=== PATIENT | female | born 1960 | race Caucasian/White ===

== ENCOUNTER 2016-11-14 18:05 | Inpatient (IN) | payer MEDICARE, OTHER ==
[~2016-11-14] VITALS: Ht 175.3 cm; Wt 77.1 kg
[~2016-11-14 18:05] MED LIST: ATOR20TA15 PO; CYMB60CA PO; GABA600T PO; GLIP1TAB49 PO; GLIP1TAB51 PO; METO25TA6 PO; PROT40TA PO; ULTR50TA5 PO
[2016-11-14 18:08] VITALS: BP 173/76; PULSE 68; RESP 18; TEMP 98.2; O2SAT 98
[2016-11-14] MEDS ORDERED: GLIP10TA67 PO (18:22)
[2016-11-14] MEDS ORDERED: VITACAP7 PO (18:22)
[2016-11-14] MEDS ORDERED: VENTAER INH (18:22)
[2016-11-14] MEDS ORDERED: ASPI1TAB69 PO (18:22)
[2016-11-14] MEDS ORDERED: BUSP1TAB PO (18:22)
[2016-11-14] MEDS ORDERED: BACL10TA PO (18:22)
[2016-11-14] MEDS ORDERED: LACTCAP8 PO (18:22)
[2016-11-14] MEDS ORDERED: SODIUM CHLOR 0.9% 1000 ML INJ 1,000 ML IV ONE ×2 (18:35→19:05)
--- NOTE | 2016-11-14 18:39 | PD ---
HPI Chief Complaint: GI Complaint Time Seen by Provider: 18:30 Travel History International Travel<30 days: No Contact w/Intl Traveler<30days: No Traveled to known affect area: No History of Present Illness HPI 56-year-old female with history of diabetes, bipolar disorder, hypertension, here for evaluation of nausea, vomiting, diarrhea, abdominal pain. Symptoms started today. According to the patient's granddaughter, the patient had approximately 20 episodes of vomiting today which consist of greenish emesis. The patient also reports having some loose bowel movements today area emesis and bowel movements have been nonbloody. She is having right upper quadrant abdominal and lower abdominal pain which is sharp, constant, 9 out of 10, worse with movement and palpation. History of cholecystectomy, appendectomy, and hysterectomy. No urinary symptoms. EMS reported a temp of 99.8F. BGL of 253. PFSH Past Medical History Hx Anticoagulant Therapy: Yes (2 BABY ASA DAILY) Bipolar Disorder: Yes Cancer: No Cardiac Catheterization: No Cardiovascular Problems: Yes (MA, HTN, CHOL) High Cholesterol: Yes Congestive Heart Failure: No Cerebrovascular Accident: Yes (TIA) Coronary Artery Disease: Yes Diabetes: Yes Patient Takes Glucophage: No Diminished Hearing: Yes Headaches: No Hypertension: Yes Musculoskeletal: Yes (chronic back pain) Neurologic: Yes Psychiatric: Yes (PT REPORT "WHITE SPOTS ON MRI") Immunizations Current: Yes Myocardial Infarction: Yes Influenza Vaccination: Yes Menopausal: Yes Ovarian Cysts: Yes Past Surgical History Abdominal Surgery: Yes (LAPROSCOPY FOR ADHESIONS) Appendectomy: Yes Cholecystectomy: Yes Coronary Artery Bypass Graft: No Gynecologic Surgery: Yes (HYSTERECTOMY partial) Hysterectomy: Yes Tonsillectomy: Yes Social History Alcohol Use: Yes (RARELY) Tobacco Use: Yes (1 PPD) Substance Use: Yes Allergies-Medications (Allergen,Severity, Reaction): Coded Allergies: Bee Sting (Verified Adverse Reaction, Severe, Anaphylaxis, 11/14/16) Codeine (Verified Adverse Reaction, Severe, ITCH, 11/14/16) Reported Meds & Prescriptions Reported Meds & Active Scripts Active Ultram (Tramadol HCl) 50 Mg Tab 100 Mg PO Q12HR PRN Metoprolol Succinate ER 24 HR (Metoprolol Succinate) 25 Mg Tab 25 Mg PO DAILY Protonix (Pantoprazole Sodium) 40 Mg Tab 40 Mg PO DAILY Gabapentin 600 Mg Tab 1,200 Mg PO BID Atorvastatin (Atorvastatin Calcium) 20 Mg Tab 20 Mg PO HS Reported B Complex (B-Complex Vitamins) 1 Cap 1 Cap PO DAILY Probiotic (Lactobacillus Acidophilus) 1 Cap Cap 1 Cap PO TIDAC Ventolin Hfa 18 GM Inh (Albuterol Sulfate) 90 Mcg/Act Aer 2 Puff INH Q4-6H PRN Aspirin 81 Mg Tabdr 81 Mg PO DAILY Baclofen 10 Mg Tab 10 Mg PO BID PRN Buspirone (Buspirone HCl) 7.5 Mg Tab 7.5 Mg PO BID Glipizide XL (Glipizide) 10 Mg Glynn 10 Mg PO DAILY Take with breakfast or first main meal of the day Review of Systems Except as stated in HPI: all other systems reviewed are Neg Physical Exam Narrative GENERAL: Well-developed, well-nourished, no acute distress. SKIN: Warm and dry. HEAD: Atraumatic. Normocephalic. EYES: Pupils equal and round. No scleral icterus. No injection or drainage. ENT: Mucous membranes pink and dry. NECK: Trachea midline. No JVD. No nuchal rigidity. CARDIOVASCULAR: Regular rate and rhythm. RESPIRATORY: No accessory muscle use. Clear to auscultation. Breath sounds equal bilaterally. GASTROINTESTINAL: Abdomen soft, nondistended. Moderate diffuse tenderness without peritoneal signs. Normal bowel sounds. MUSCULOSKELETAL: No obvious deformities. No clubbing. No cyanosis. No edema. NEUROLOGICAL: Awake and alert. No obvious cranial nerve deficits. Motor grossly within normal limits. Normal speech. PSYCHIATRIC: Appropriate mood and affect; insight and judgment normal. Data Data Last Documented VS Vital Signs Date Time Temp Pulse Resp B/P Pulse Ox O2 Delivery O2 Flow Rate FiO2 11/14/16 18:08 98.2 68 18 173/76 98 Orders Electrocardiogram (11/14/16 18:35) Complete Blood Count With Diff (11/14/16 18:35) Comprehensive Metabolic Panel (11/14/16 18:35) Beta Hydroxybutyrate (Acetone) (11/14/16 18:35) Urinalysis - C+S If Indicated (11/14/16 18:35) Chest, Single Ap (11/14/16 18:35) Blood Gas Venous (Vbg) (11/14/16 18:35) Ecg Monitoring (11/14/16 18:35) Iv Access Insert/Monitor (11/14/16 18:35) Oximetry (11/14/16 18:35) NPO (11/14/16 18:35) Sodium Chlor 0.9% 1000 Ml Inj (Ns 1000 M (11/14/16 18:35) Sodium Chlor 0.9% 1000 Ml Inj (Ns 1000 M (11/14/16 19:05) Sodium Chloride 0.9% Flush (Ns Flush) (11/14/16 18:45) Ckmb (Isoenzyme) Profile (11/14/16 18:35) Troponin I (11/14/16 18:35) Lipase (11/14/16 18:35) Metoclopramide Inj (Reglan Inj) (11/14/16 18:45) Morphine Inj (Morphine Inj) (11/14/16 18:45) Influenzae A/B Antigen (11/14/16 18:35) Ct Abd/Pel W Iv Contrast(Rout) (11/14/16 18:35) Labs Laboratory Tests Test 11/14/16 11/14/16 18:30 18:40 White Blood Count 14.8 TH/MM3 Red Blood Count 5.34 MIL/MM3 Hemoglobin 15.8 GM/DL Hematocrit 46.3 % Mean Corpuscular Volume 86.7 FL Mean Corpuscular Hemoglobin 29.6 PG Mean Corpuscular Hemoglobin 34.2 % Concent Red Cell Distribution Width 12.7 % Platelet Count 456 TH/MM3 Mean Platelet Volume 7.6 FL Neutrophils (%) (Auto) 91.6 % Lymphocytes (%) (Auto) 7.1 % Monocytes (%) (Auto) 0.6 % Eosinophils (%) (Auto) 0.0 % Basophils (%) (Auto) 0.7 % Neutrophils # (Auto) 13.5 TH/MM3 Lymphocytes # (Auto) 1.1 TH/MM3 Monocytes # (Auto) 0.1 TH/MM3 Eosinophils # (Auto) 0.0 TH/MM3 Basophils # (Auto) 0.1 TH/MM3 CBC Comment DIFF FINAL Differential Comment Blood Gas Puncture Site IV Blood Gas Patient Temperature 98.6 Venous Blood pH 7.53 Venous Blood Partial Pressure 27 mmHg CO2 Venous Blood Partial Pressure 26 mmHg O2 Venous Blood HCO3 23 mmol/L Venous Blood Oxygen Saturation 52 % Venous Blood Oxygen Content 11.4 Vol % Venous Blood Base Excess 0.4 mmol/L Oxygen Delivery Device ROOM AIR MDM Medical Decision Making Medical Screen Exam Complete: Yes Emergency Medical Condition: Yes Medical Record Reviewed: Yes Interpretation(s) EKG: Sinus, rate 76, normal axis, normal intervals, nonspecific ST junctional depressions Differential Diagnosis Gastroenteritis, dehydration, hyperglycemia, DKA, influenza, bowel obstruction, intra-abdominal infectious process. Narrative Course At approximately 7:00 PM at the end of my shift the patient was signed out to Dr. France who will follow up with labs, imaging studies, and will disposition the patient. Romero Berry MD Nov 14, 2016 18:39
[2016-11-14] MEDS ORDERED: METOCLOPRAMIDE HCL 10 MG/2 ML VIAL IV PUSH ONE (18:45)
[2016-11-14] MEDS ORDERED: SODIUM CHLORIDE 0.9% FLUSH 5 ML FLUSH IVF PRN ×2 (18:45→20:45)
[2016-11-14] MEDS ORDERED: MORPHINE SULFATE 4 MG/ML INJ IV PUSH ONE (18:45)
[2016-11-14 18:48] LABS: BLOOD GAS VENOUS BASE EXCESS 0.4 mmol/L (-2-2); BLOOD GAS VENOUS HCO3 23 mmol/L (22-26); BLOOD GAS VENOUS O2 CONTENT 11.4 Vol % (9.0-17.0); BLOOD GAS VENOUS O2 HGB SAT 52 % (70-76); BLOOD GAS VENOUS PCO2 27 mmHg (44-48); BLOOD GAS VENOUS PO2 26 mmHg (35-40); BLOOD GAS VENOUS pH 7.53 (7.360-7.400); TEMP CORR TO 98.6
[2016-11-14 18:49] LABS: CRITICAL VALUE YES; DRAW SITE IV; OXYGEN DEVICE ROOM AIR; STAT YES
[2016-11-14 18:53] LABS: AUTOMATED NEUTROPHIL # 13.5 TH/MM3 (1.8-7.7); BASOPHIL # 0.1 TH/MM3 (0-0.2); BASOPHIL % 0.7 % (0.0-2.0); HEMATOCRIT 46.3 % (35.0-46.0); HEMO FLAGS DIFF FINAL; LYMPH % 7.1 % (9.0-44.0); LYMPHOCYTE # 1.1 TH/MM3 (1.0-4.8); MEAN CELL VOLUME 86.7 FL (80.0-100.0); MEAN CORPUSCULAR HEMOGLOBIN 29.6 PG (27.0-34.0); MEAN CORPUSCULAR HGB CONC 34.2 % (32.0-36.0); MONO % 0.6 % (0.0-8.0); NEUT % 91.6 % (16.0-70.0); PLATELET COUNT 456 TH/MM3 (150-450); RED BLOOD COUNT 5.34 MIL/MM3 (4.00-5.30); RED CELL DISTRIBUTION WIDTH 12.7 % (11.6-17.2); WHITE BLOOD COUNT 14.8 TH/MM3 (4.0-11.0)
[2016-11-14 19:02] LABS: CHLORIDE 105 MEQ/L (98-107); POTASSIUM 3.7 MEQ/L (3.5-5.1); SODIUM (NA) 140 MEQ/L (136-145)
[2016-11-14 19:06] LABS: ANION GAP 12 MEQ/L (5-15); BICARBONATE 22.6 MEQ/L (21.0-32.0); BLOOD UREA NITROGEN 8 MG/DL (7-18)
[2016-11-14 19:08] LABS: ALT (GPT) 19 U/L (10-53); AST (GOT) 14 U/L (15-37)
[2016-11-14 19:09] LABS: GLOMERULAR FILTRATION RATE 61 ML/MIN (>89)
[2016-11-14 19:10] LABS: TOTAL BILIRUBIN ADULT 0.5 MG/DL (0.2-1.0)
[2016-11-14 19:11] LABS: ALKALINE PHOSPHATASE 93 U/L (45-117)
[2016-11-14 19:12] LABS: BLOOD, URINE TRACE (NEG); GLUCOSE,URINE 500 mg/dL (NEG); KETONE, URINE 80 OR GREATER mg/dL (NEG); NITRITE,URINE NEG (NEG)
[2016-11-14 19:17] LABS: BACTERIA, URINE OCC /hpf; COMMENT (UR) CULT NOT INDICATED; CULTURE IF INDICATED CULT NOT INDICATED; SQUAMOUS EPITHELIAL CELL URINE 0-5 /hpf (0-5); URINE COLOR YELLOW (YELLW/STRAW); WBC, URINE 0-2 /hpf (0-5)
[2016-11-14 19:18] LABS: CREATINE KINASE 59 U/L (26-192)
[2016-11-14 19:19] VITALS: BP 164/76; PULSE 72; RESP 16; O2SAT 99
[2016-11-14 19:20] LABS: BETA-HYDROXYBUTYRATE 1.12 MMOL/L (0.00-0.39)
--- NOTE | 2016-11-14 19:34 | PD ---
Physical Exam Date Seen by Provider: Nov 14, 2016 Time Seen by Provider: 19:33 Narrative GENERAL: Well-developed well-nourished female in no acute distress no respiratory distress SKIN: Warm and dry. HEAD: Normocephalic. EYES: No scleral icterus. No injection or drainage. NECK: Supple, trachea midline. No JVD or lymphadenopathy. CARDIOVASCULAR: Regular rate and rhythm without murmurs, gallops, or rubs. RESPIRATORY: Breath sounds equal bilaterally. No accessory muscle use. GASTROINTESTINAL: Abdomen soft, non-tender, nondistended. MUSCULOSKELETAL: No cyanosis, or edema. BACK: Nontender without obvious deformity. No CVA tenderness. Data Data Last Documented VS Vital Signs Date Time Temp Pulse Resp B/P Pulse Ox O2 Delivery O2 Flow Rate FiO2 11/14/16 20:17 87 16 176/83 99 Room Air 11/14/16 18:08 98.2 Orders Electrocardiogram (11/14/16 18:35) Complete Blood Count With Diff (11/14/16 18:35) Comprehensive Metabolic Panel (11/14/16 18:35) Beta Hydroxybutyrate (Acetone) (11/14/16 18:35) Urinalysis - C+S If Indicated (11/14/16 18:35) Chest, Single Ap (11/14/16 18:35) Blood Gas Venous (Vbg) (11/14/16 18:35) Ecg Monitoring (11/14/16 18:35) Iv Access Insert/Monitor (11/14/16 18:35) Oximetry (11/14/16 18:35) NPO (11/14/16 18:35) Sodium Chlor 0.9% 1000 Ml Inj (Ns 1000 M (11/14/16 18:35) Sodium Chlor 0.9% 1000 Ml Inj (Ns 1000 M (11/14/16 19:05) Sodium Chloride 0.9% Flush (Ns Flush) (11/14/16 18:45) Ckmb (Isoenzyme) Profile (11/14/16 18:35) Troponin I (11/14/16 18:35) Lipase (11/14/16 18:35) Metoclopramide Inj (Reglan Inj) (11/14/16 18:45) Morphine Inj (Morphine Inj) (11/14/16 18:45) Influenzae A/B Antigen (11/14/16 18:35) Ct Abd/Pel W Iv Contrast(Rout) (11/14/16 18:35) Iohexol 350 Inj (Omnipaque 350 Inj) (11/14/16 19:51) Ondansetron Inj (Zofran Inj) (11/14/16 20:15) Aspirin Chew (Aspirin Chew) (11/14/16 20:15) Nitroglycerin 2% Oint (Nitroglycerin 2% (11/14/16 20:15) Admit Order (Ed Use Only) (11/14/16 ) ^ Saline Lock (11/14/16 20:43) Resp Oxygen [place] C Titrat 1-4 L (11/14/16 ) ^ Notify Dr: Other (11/14/16 20:43) Sodium Chloride 0.9% Flush (Ns Flush) (11/14/16 21:00) Sodium Chloride 0.9% Flush (Ns Flush) (11/14/16 20:45) Labs Laboratory Tests Test 11/14/16 11/14/16 11/14/16 18:30 18:40 19:00 White Blood Count 14.8 TH/MM3 Red Blood Count 5.34 MIL/MM3 Hemoglobin 15.8 GM/DL Hematocrit 46.3 % Mean Corpuscular Volume 86.7 FL Mean Corpuscular Hemoglobin 29.6 PG Mean Corpuscular Hemoglobin 34.2 % Concent Red Cell Distribution Width 12.7 % Platelet Count 456 TH/MM3 Mean Platelet Volume 7.6 FL Neutrophils (%) (Auto) 91.6 % Lymphocytes (%) (Auto) 7.1 % Monocytes (%) (Auto) 0.6 % Eosinophils (%) (Auto) 0.0 % Basophils (%) (Auto) 0.7 % Neutrophils # (Auto) 13.5 TH/MM3 Lymphocytes # (Auto) 1.1 TH/MM3 Monocytes # (Auto) 0.1 TH/MM3 Eosinophils # (Auto) 0.0 TH/MM3 Basophils # (Auto) 0.1 TH/MM3 CBC Comment DIFF FINAL Differential Comment Sodium Level 140 MEQ/L Potassium Level 3.7 MEQ/L Chloride Level 105 MEQ/L Carbon Dioxide Level 22.6 MEQ/L Anion Gap 12 MEQ/L Blood Urea Nitrogen 8 MG/DL Creatinine 0.95 MG/DL Estimat Glomerular Filtration 61 ML/MIN Rate Random Glucose 245 MG/DL Calcium Level 9.1 MG/DL Total Bilirubin 0.5 MG/DL Aspartate Amino Transf 14 U/L (AST/SGOT) Alanine Aminotransferase 19 U/L (ALT/SGPT) Alkaline Phosphatase 93 U/L Total Creatine Kinase 59 U/L Troponin I 0.24 NG/ML Total Protein 8.1 GM/DL Albumin 4.1 GM/DL Lipase 62 U/L B-Hydroxybutyrate 1.12 MMOL/L Blood Gas Puncture Site IV Blood Gas Patient Temperature 98.6 Venous Blood pH 7.53 Venous Blood Partial Pressure 27 mmHg CO2 Venous Blood Partial Pressure 26 mmHg O2 Venous Blood HCO3 23 mmol/L Venous Blood Oxygen Saturation 52 % Venous Blood Oxygen Content 11.4 Vol % Venous Blood Base Excess 0.4 mmol/L Oxygen Delivery Device ROOM AIR Urine Color YELLOW Urine Turbidity CLEAR Urine pH 7.0 Urine Specific [place] 1.024 Urine Protein 100 mg/dL Urine Glucose (UA) 500 mg/dL Urine Ketones 80 OR GREATER mg/dL Urine Occult Blood TRACE Urine Nitrite NEG Urine Bilirubin NEG Urine Leukocyte Esterase NEG Urine RBC 10-14 /hpf Urine WBC 0-2 /hpf Urine Squamous Epithelial 0-5 /hpf Cells Urine Bacteria OCC /hpf Microscopic Urinalysis Comment CULT NOT INDICATED MDM Medical Record Reviewed: Yes Supervised Visit with KEANU: No Interpretation(s) Last Impressions Chest X-Ray 11/14/[id number] Signed Impressions: Service Date/Time: Monday, November 14, 2016 18:46 - CONCLUSION: No acute disease. No significant change has occurred. Mathew Fuller MD Abdomen/Pelvis CT 11/14/[id number] Signed Impressions: Service Date/Time: Monday, November 14, 2016 19:31 - CONCLUSION: Stable left adrenal gland nodules. No evidence of acute process. Mathew Fuller MD CBC & BMP Diagram 11/14/16 18:30 Vital Signs Date Time Temp Pulse Resp B/P Pulse Ox O2 Delivery O2 Flow Rate FiO2 11/14/16 20:17 87 16 176/83 99 Room Air 11/14/16 19:19 72 16 164/76 99 Room Air 11/14/16 18:08 98.2 68 18 173/76 98 Differential Diagnosis Please refer to Dr. Berry's dictation Narrative Course Accepted in transfer of care from Dr. Berry for follow-up of pending CT labs and patient disposition At 8:15 PM patient is return from CT receiving first liter of normal saline states her nausea has improved but not resolved no further diarrhea no abdominal pain patient denies any shortness of breath or chest pain states feels somewhat improved; patient identified to have elevated troponin EKG shows sinus arrhythmia rate of [address] elevation nonspecific mild ST depression inferolaterally. Patient has had previous myocardial infarction. Lab values remarkable for leukocytosis with left shift; normal bicarbonate and anion gap; respiratory alkalosis; elevated beta hydroxybutyric acid; and CT abdomen and pelvis reveals no acute intra-abdominal or pelvic abnormality. Patient presents with dehydration probable gastroenteritis post-exposure from family members with similar symptoms now with concern for elevated troponin I ( prior [place], no CP no SOB, no sweats, no referred pain or epigastric pain), elevated BHB with respiratory acidosis associated with gastroenteritis/ dehydration concern for early dka. Patient will need to be admitted for ongoing diabetic management, serial cardiac enzymes, and symptomatic management for gastroenteritis. Case discussed with admitting [facility] MD Dr Neal --will admit to [facility] intermediate care floor. Sepsis Criteria SIRS Criteria (2 or more): WBC > 45601, < 4000 or > 10% bands Physician Communication Physician Communication call placed to [facility] service for admission --- discussed with Dr Neal Diagnosis Primary Impression: Gastroenteritis Additional Impressions: Diabetes Elevated troponin I level Dehydration Leukocytosis Admitting Information Admitting Physician Requests: Admit Katie France MD Nov 14, 2016 19:34
--- NOTE | 2016-11-14 19:47 | RADHPO ---
EXAM DATE/TIME: 11/14/2016 18:46 [facility] COMPARISON: CHEST SINGLE AP, August 10, 2015, 13:12. INDICATIONS : Cough. MEDICAL HISTORY : Hypertension. Hypercholesterolemia. Myocardial infarction. TIA, CAD, Diabetes, Bipolar disorder SURGICAL HISTORY : Tonsillectomy. Appendectomy. Cholecystectomy. Hysterectomy ENCOUNTER: Initial ACUITY: 1 day PAIN SCORE: 6/10 LOCATION: Bilateral chest FINDINGS: A single view of the chest demonstrates the lungs to be symmetrically aerated without evidence of mas s, infiltrate or effusion. The cardiomediastinal contours are unremarkable. Osseous structures are intact.CONCLUSION: No acute disease. No significant change has occurred. Mathew Fuller MD on November 14, 2016 at 19:45 Board Certified Radiologist. This report was verified electronically.
[2016-11-14] MEDS ORDERED: IOHEXOL 350 MG/ML 10 ML VIAL (for RAD DIAG) IV ONE (19:51)
--- NOTE | 2016-11-14 20:11 | RADHPO ---
EXAM DATE/TIME: 11/14/2016 19:31 [facility] COMPARISON: CT ABDOMEN & PELVIS W CONTRAST, March 16, 2015, 11:21. INDICATIONS : Diffuse abdominal pain with nausea, vomiting, and diarrhea. IV CONTRAST: 96 cc Omnipaque 350 (iohexol) IV ORAL CONTRAST: No oral contrast ingested. RADIATION DOSE: 10.57 CTDIvol (mGy) MEDICAL HISTORY : Myocardial infarction. Hypertension. Diabetes. SURGICAL HISTORY : Cholecystectomy. Appendectomy.Hysterectomy. ENCOUNTER: Initial ACUITY: 1 day PAIN SCALE: 6/10 LOCATION: Bilateral Abdomen. TECHNIQUE: Volumetric scanning of the abdomen and pelvis was performed. Using automated exposure control and adjustment of the mA and/or kV according to patient size, radiation dose was kept as low as reasonably achievable to obtain optimal diagnostic quality images. FINDINGS: LOWER LUNGS: The visualized lower lungs are clear. LIVER: Homogeneous density without lesion. There is no dilation of the biliary tree. No calcifi ed gallstones. SPLEEN: Normal size without lesion. PANCREAS: Within normal limits. KIDNEYS: Normal in size and shape. There is no mass, stone or hydronephrosis. ADRENAL GLANDS: 3 small nodules are identified in the left adrenal gland the largest measuring 16 mm. These are stable compared to prior study of 03/16/2015. Radiograph is unremarkable. VASCULAR: There is no aortic aneurysm. BOWEL/MESENTERY: The stomach, small bowel, and colon demonstrate no acute abnormality. There is no free intraperitoneal air or fluid. ABDOMINAL WALL: Within normal limits. RETROPERITONEUM: There is no lymphadenopathy. BLADDER: No wall thickening or mass. REPRODUCTIVE: Within normal limits. INGUINAL: There is no lymphadenopathy or hernia. MUSCULOSKELETAL: Within normal limits for patient age. CONCLUSION: Stable left adrenal gland nodules. No evidence of acute process. Mathew Fuller MD on November 14, 2016 at 20:07 Board Certified Radiologist. This report was verified electronically.
[2016-11-14] MEDS ORDERED: ASPIRIN 81 MG CHEW TAB CHEW ONE (20:15)
[2016-11-14] MEDS ORDERED: ONDANSETRON HCL 4 MG/2 ML VIAL IV PUSH ONE (20:15)
[2016-11-14] MEDS ORDERED: NITROGLYCERIN 2% OINT 1 GM PACKET TOPICAL ONE (20:15)
[2016-11-14 20:17] VITALS: BP 176/83; PULSE 87; RESP 16; O2SAT 99
[2016-11-14] MEDS ORDERED: BISACODYL 10 MG SUPP PR PRN (20:45)
[2016-11-14] MEDS ORDERED: MORPHINE SULFATE 4 MG/ML INJ IV PRN (20:45)
[2016-11-14] MEDS ORDERED: DEXTROSE 50% IN WATER 50 ML VIAL(D50) IV PUSH PRN (20:45)
[2016-11-14] MEDS ORDERED: KETOROLAC TROMETHAMINE 30 MG/ML (IVP) VIAL IVP PRN (20:45)
[2016-11-14] MEDS ORDERED: SODIUM CHLORIDE 0.9% FLUSH 5 ML FLUSH FLUSH PRN (20:45)
[2016-11-14] MEDS ORDERED: GLUCAGON 1 MG/ML VIAL OTHER PRN (20:45)
[2016-11-14] MEDS ORDERED: SODIUM CHLORIDE 0.9% FLUSH 5 ML FLUSH IVF SCH (21:00)
[2016-11-14] MEDS ORDERED: PILL SPLITTER OTHER PRN (21:00)
[2016-11-14 21:12] VITALS: O2SAT 98
[2016-11-14] MEDS: busPIRone HCL 5 MG TAB PO SCH (21:27)
[2016-11-14] MEDS: ATORVASTATIN 20 MG TAB PO SCH (21:27)
[2016-11-14] MEDS: CIPROFLOXACIN 400 MG PREMIX 200 ML IV SCH (21:27)
[2016-11-14] MEDS: GABAPENTIN 300 MG CAP PO SCH (21:28)
[2016-11-14] MEDS: INSULIN ASPART SUPPLEMENTAL SCALE SQ SCH (21:28)
[2016-11-14] MEDS: SODIUM CHLOR 0.9% 1000 ML INJ 1,000 ML IV SCH (21:29)
[2016-11-14] MEDS: SODIUM CHLORIDE 0.9% FLUSH 5 ML FLUSH FLUSH SCH (21:36)
[2016-11-14] MEDS: PANTOPRAZOLE SODIUM 40 MG VIAL IV PUSH SCH (21:36)
[2016-11-14 21:50] VITALS: BP 171/71; PULSE 87; RESP 16
[2016-11-14] MEDS: metroNIDAZOLE 500 MG INJ 100 ML IV SCH (22:52)
[2016-11-15] VITALS (13 sets, daily range): BP systolic 99–158; BP diastolic 48–85; PULSE 66–99; RESP 14–17; TEMP 97.8–98.6; O2SAT 26–99
[2016-11-15 03:11] LABS: HEMATOCRIT 41.3 % (35.0-46.0); MEAN CORPUSCULAR HEMOGLOBIN 29.5 PG (27.0-34.0); MEAN CORPUSCULAR HGB CONC 33.6 % (32.0-36.0); PLATELET COUNT 375 TH/MM3 (150-450); RED BLOOD COUNT 4.69 MIL/MM3 (4.00-5.30); RED CELL DISTRIBUTION WIDTH 12.9 % (11.6-17.2); REVIEW FLAG FINAL; WHITE BLOOD COUNT 16.5 TH/MM3 (4.0-11.0)
[2016-11-15] MEDS: HEPARIN-D5W INJ 250 ML IV SCH ×2 (03:17→22:43)
[2016-11-15 03:36] LABS: APTT (PATIENT) 27.3 SEC (24.3-30.1); PROTHROMBIN TIME - PATIENT 10.9 SEC (9.8-11.6)
[2016-11-15] MEDS: SODIUM CHLOR 0.9% 1000 ML INJ 1,000 ML IV SCH ×2 (05:46→16:42)
[2016-11-15] MEDS: metroNIDAZOLE 500 MG INJ 100 ML IV SCH ×3 (05:46→21:25)
[2016-11-15 06:30] LABS: AUTOMATED NEUTROPHIL # 13.4 TH/MM3 (1.8-7.7); BASOPHIL # 0.1 TH/MM3 (0-0.2); BASOPHIL % 0.5 % (0.0-2.0); EOSINOPHIL % 0.1 % (0.0-4.0); HEMO FLAGS DIFF FINAL; LYMPH % 17.4 % (9.0-44.0); MEAN CORPUSCULAR HGB CONC 34.1 % (32.0-36.0); MONO % 3.9 % (0.0-8.0); NEUT % 78.1 % (16.0-70.0); PLATELET COUNT 387 TH/MM3 (150-450); RED BLOOD COUNT 4.54 MIL/MM3 (4.00-5.30); RED CELL DISTRIBUTION WIDTH 12.6 % (11.6-17.2); WHITE BLOOD COUNT 17.2 TH/MM3 (4.0-11.0)
[2016-11-15 06:31] LABS: CHLORIDE 110 MEQ/L (98-107); POTASSIUM 3.3 MEQ/L (3.5-5.1); SODIUM (NA) 142 MEQ/L (136-145)
[2016-11-15 06:46] LABS: ALKALINE PHOSPHATASE 69 U/L (45-117); ALT (GPT) 15 U/L (10-53); ANION GAP 8 MEQ/L (5-15); AST (GOT) 9 U/L (15-37); BICARBONATE 24.2 MEQ/L (21.0-32.0); BLOOD UREA NITROGEN 8 MG/DL (7-18); GLOMERULAR FILTRATION RATE 97 ML/MIN (>89); TOTAL BILIRUBIN ADULT 0.4 MG/DL (0.2-1.0)
[2016-11-15] MEDS: ACETAMINOPHEN 325 MG TAB PO PRN ×2 (06:49→21:51)
[2016-11-15] MEDS: INSULIN ASPART SUPPLEMENTAL SCALE SQ SCH ×4 (06:49→21:26)
[2016-11-15] MEDS: ONDANSETRON HCL 4 MG/2 ML VIAL IVP PRN ×2 (08:34→21:51)
[2016-11-15] MEDS: CIPROFLOXACIN 400 MG PREMIX 200 ML IV SCH ×2 (08:35→21:25)
[2016-11-15] MEDS: GABAPENTIN 300 MG CAP PO SCH ×2 (08:35→21:31)
[2016-11-15] MEDS: ASPIRIN EC 81 MG TABEC PO SCH (08:35)
[2016-11-15] MEDS: METOPROLOL SUCCINATE 25 MG EXTENDED RELEASE TAB PO SCH (08:35)
[2016-11-15] MEDS: busPIRone HCL 5 MG TAB PO SCH ×2 (08:36→21:30)
[2016-11-15] MEDS: PANTOPRAZOLE SODIUM 40 MG VIAL IV PUSH SCH (08:36)
[2016-11-15] MEDS: SODIUM CHLORIDE 0.9% FLUSH 5 ML FLUSH FLUSH SCH ×2 (08:36→21:00)
[2016-11-15 09:01] LABS: APTT (PATIENT) 42.8 SEC (24.3-30.1)
[2016-11-15] MEDS ORDERED: DULO1CAP3 PO (09:11)
[2016-11-15 09:51] LABS: LDL CHOLESTEROL 103 MG/DL (0-99)
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
[2016-11-15] MEDS ORDERED: POTASSIUM CHLORIDE 20 MEQ CONTROLLED RELEASE TAB PO ONE (13:45)
[2016-11-15] MEDS: traMADol HCL 50 MG TAB PO PRN ×2 (14:36→21:50)
[2016-11-15 14:51] LABS: APTT (PATIENT) 51.3 SEC (24.3-30.1)
[2016-11-15 15:22] LABS: HEMOGLOBIN A1a 1.3 %; HEMOGLOBIN A1b 1.1 %; HEMOGLOBIN Ao 79.7 %; HEMOGLOBIN F 1.4 %; HEMOGLOBIN LA1C 2.7 %; HEMOGLOBIN P3 4.8 %
--- NOTE | 2016-11-15 16:02 | MB ---
cc: FIGUEROA VANCE M.D. DATE OF CONSULTATION: 11/15/[address]-segment elevation infarct. HISTORY OF PRESENT ILLNESS The patient is a 56-year-old female with a history of diabetes, hypertension, hyperlipidemia and an 80 pack-year smoking history. In March of 2015 she presented with the onset of abdominal discomfort. At that time she underwent cardiac catheterization that showed just 25% obstruction of the proximal left anterior descending and mid right coronary arteries. It was felt she should be managed medically. She has a history of abdominal adhesions and recurrent abdominal pain. Yesterday the patient had the onset of nausea and vomiting and abdominal discomfort. This brought her to the emergency room where her EKG was unremarkable but serial troponins were drawn and she has had a troponin rise consistent with a non ST-segment elevation infarct. She tells me this presentation is identical of the presentation she had in March of 2015. Her symptoms have now resolved and she is feeling fine and is free of cardiovascular complaints. PHYSICAL EXAMINATION GENERAL: On general inspection she is alert, the patient is lying supine in bed in no distress. She is generally angry telling me my recommendations are stupid, and that she might as well go home. VITAL SIGNS: Reveal a blood pressure of 128/68, pulse of 90, respirations of 17. Patient is afebrile. HEENT/NECK: Unremarkable for the patient's age. LUNGS: Clear. CARDIOVASCULAR: Regular rate and rhythm without murmurs, rubs, clicks or gallops. ABDOMEN: Soft without masses, tenderness or organomegaly. Bowel sounds within normal limits. GENITAL/RECTAL: Deferred. EXTREMITIES: No cyanosis, clubbing or edema. NEUROLOGIC: Grossly intact without focal findings. IMAGING STUDIES Chest x-ray is unremarkable. CT of the abdomen shows no evidence of aortic aneurysm or other acute process. LABORATORY DATA CBC shows persistently elevated white count of 17,200 with a left shift. Hematocrit is 40%. Basic metabolic panel is normal. Patient has had a pretty clear troponin rise with troponins of 0.24, going to 0.77, now falling to 0.56. LDL cholesterol was 103. Lipase is low at 62. APTT is mildly elevated with the patient on a heparin drip. EKG EKG is only done on admission but is essentially normal with minimal J point depression. ASSESSMENT/PLAN Essentially the patient presents with recurrent abdominal pain and evidence of a non ST-segment elevation infarct. Her risk is pretty marginally controlled, primarily because of her noncompliance. She is pretty unhappy with being in the hospital. I spent a long time going over her options. She essentially refuses any consideration of Lexiscan stress testing and she does not think it is right for her. She will consider repeat cardiac catheterization which was a clear troponin rise and fall in the setting of acute symptoms, would appear to be appropriate in this risk situation even with a negative cardiac catheterization a year and half ago. I have reviewed the risks, benefits, alternatives of cardiac catheterization and she tells me it is a stupid idea but she is willing to have it done. I told her in that setting we would transfer her to [facility] for ongoing care and evaluation. Repeat her EKGs and troponins. Will check an echocardiogram. Will continue empiric medical therapy until her coronary anatomy is known. MD ANDRE Ruiz/GABI /3:05 PM /3:39 PM
[2016-11-15] MEDS: LACTOBACILLUS ACIDOPHILUS TAB PO SCH (17:29)
[2016-11-15] MEDS: NITROGLYCERIN 2% OINT 1 GM PACKET TOPICAL SCH (17:29)
--- NOTE | 2016-11-15 19:22 | EKG ---
Date Performed: 11/14/2016 Time Performed: 18:56:30 PTAGE: 56 years EKG: Sinus arrhythmia ST junctional depression is nonspecific Since previous tracing, no signifi cant change noted Borderline ECG PREVIOUS TRACING : 02/29/2016 12.54 DOCTOR: Leno Gamez Interpretating Date/Time 11/15/2016 19:20:31
[2016-11-15] MEDS ORDERED: DULoxetine HCl DR 60 MG CAP PO ONE (20:30)
[2016-11-15] MEDS: ATORVASTATIN 20 MG TAB PO SCH (21:31)
[2016-11-15] MEDS: BACLOFEN 10 MG TAB PO PRN (21:50)
[2016-11-15] MEDS: metroNIDAZOLE 500 MG TAB PO SCH (22:35)
[2016-11-16] VITALS (13 sets, daily range): BP systolic 107–121; BP diastolic 67–72; PULSE 61–83; RESP 18; TEMP 97.3–98.5; O2SAT 95–98
[2016-11-16] MEDS: SODIUM CHLOR 0.9% 1000 ML INJ 1,000 ML IV SCH (02:42)
[2016-11-16] MEDS: ACETAMINOPHEN 325 MG TAB PO PRN (03:22)
[2016-11-16] MEDS: metroNIDAZOLE 500 MG TAB PO SCH (05:56)
[2016-11-16] MEDS: NITROGLYCERIN 2% OINT 1 GM PACKET TOPICAL SCH ×2 (05:57)
[2016-11-16] MEDS: INSULIN ASPART SUPPLEMENTAL SCALE SQ SCH (05:57)
[2016-11-16 07:27] LABS: BICARBONATE 25.3 MEQ/L (21.0-32.0); POTASSIUM 3.5 MEQ/L (3.5-5.1)
[2016-11-16 07:36] LABS: APTT (PATIENT) 67.6 SEC (24.3-30.1)
[2016-11-16] MEDS ORDERED: glipiZIDE 10 MG TAB PO SCH (08:00)
[2016-11-16] MEDS: GABAPENTIN 300 MG CAP PO SCH (08:29)
[2016-11-16] MEDS: ASPIRIN EC 81 MG TABEC PO SCH (08:29)
[2016-11-16] MEDS: busPIRone HCL 5 MG TAB PO SCH (08:30)
[2016-11-16] MEDS: METOPROLOL SUCCINATE 25 MG EXTENDED RELEASE TAB PO SCH (08:30)
[2016-11-16] MEDS: SODIUM CHLORIDE 0.9% FLUSH 5 ML FLUSH FLUSH SCH (08:30)
[2016-11-16] MEDS: LACTOBACILLUS ACIDOPHILUS TAB PO SCH (08:30)
[2016-11-16] MEDS: BACLOFEN 10 MG TAB PO PRN (08:30)
[2016-11-16] MEDS ORDERED: DULoxetine HCl DR 60 MG CAP PO SCH (09:00)
[2016-11-16] MEDS ORDERED: CIPROFLOXACIN 500 MG TAB PO SCH (09:00)
[2016-11-16] MEDS ORDERED: PANTOPRAZOLE SOD 40 MG DELAYED RELEASE TAB PO SCH (09:00)
[2016-11-16] MEDS ORDERED: INFLUENZA VIRUS VACCINE (QUADRIVALENT) 0.5 ML SYR IM ONE (10:00)
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
--- NOTE | 2016-11-16 14:25 | EKG ---
Date Performed: 11/15/2016 Time Performed: 17:34:54 PTAGE: 56 years EKG: Sinus rhythm . Normal ECG Compared to prior tracing no significant change PREVIOUS TRACING : 11/14/2016 18.56 DOCTOR: Leno Gamez Interpretating Date/Time 11/16/2016 14:23:16
[2016-12-08] MEDS ORDERED: ULTR50TA5 PO (09:24)
[2017-01-12] MEDS ORDERED: ULTR50TA5 PO (13:46)
== END 2016-11-16 09:10 | disposition left against medical advice (07) | DRG 282 ==
LOC: PHED 18:05 → PHEDA 20:45 → PHICU 11-15 00:29 → HCPC 11-15 18:44
PROVIDERS: ADMIT Family Medicine; ATTEND Family Medicine
DX: I21.4 Non-ST elevation (NSTEMI) myocardial infarction (principal); E11.9 Type 2 diabetes mellitus without complications; E86.0 Dehydration; I10 Essential (primary) hypertension; F31.9 Bipolar disorder, unspecified; E78.5 Hyperlipidemia, unspecified; F17.210 Nicotine dependence, cigarettes, uncomplicated; I25.10 Atherosclerotic heart disease of native coronary artery without angina pectoris; K52.9 Noninfective gastroenteritis and colitis, unspecified; K21.9 Gastro-esophageal reflux disease without esophagitis; E87.6 Hypokalemia; G89.29 Other chronic pain; Z79.84 Long term (current) use of oral hypoglycemic drugs; Z91.19 Patient's noncompliance with other medical treatment and regimen
CPT/HCPCS: 71010; 74177; 80048; 80053; 80061; 81001; 82010; 82550; 82805; 82948; 83036; 83690; 84484; 85025; 85027; 85610; 85730; 87804; 93005; 96361; 96374; 96375; C9113; J0744; J1644; J1815; J1885; J2270; J2405; J2765; J7030; Q9967

== ENCOUNTER 2016-12-09 14:42 | Inpatient (IN) | payer OTHER ==
[~2016-12-09 14:42] MED LIST changes: +ASPI1TAB69 PO; +BACL10TA PO; +BUSP1TAB PO; -CYMB60CA PO; +DULO1CAP3 PO; +GLIP10TA67 PO; -GLIP1TAB49 PO; -GLIP1TAB51 PO; +LACTCAP8 PO; +VENTAER INH; +VITACAP7 PO
--- NOTE | 2016-12-09 15:32 | PD ---
HPI Chief Complaint: nausea/vomiting Time Seen by Provider: 15:31 Travel History International Travel<30 days: No Contact w/Intl Traveler<30days: No History of Present Illness HPI 56-year-old female with PMH of CAD, chronic abdominal pain, T2 DM, HTN, HLD, GERD, chronic pain and recent NSTEMI presents to the ED via EMS for evaluation of sudden onset nausea and vomiting. Patient states this was accompanied by palpitations, diaphoresis. She states that she was feeling well before onset of these symptoms approximately 9 AM. She states that she had similar symptoms with her heart attack "3 weeks ago." She says she took 2 baby aspirin before arrival. EMS reports that they administered a liter bolus of normal saline, 4 mg Zofran and 2 baby aspirin en route. On presentation she complains of continued nausea. She states that she had a chemical stress test on outpatient basis recently. Patient is a current smoker. Lpta: Volodymyr PCP: Marshall BURGOS Past Medical History Hx Anticoagulant Therapy: Yes (2 BABY ASA DAILY) Bipolar Disorder: Yes Cancer: No Cardiac Catheterization: No Cardiovascular Problems: Yes High Cholesterol: Yes Congestive Heart Failure: No COPD: Yes Cerebrovascular Accident: Yes (TIA) Coronary Artery Disease: Yes Diabetes: Yes Diminished Hearing: Yes Endocrine: Yes Genitourinary: No Headaches: No Hypertension: Yes Immune Disorder: No Musculoskeletal: Yes (chronic back pain) Neurologic: Yes Psychiatric: Yes (BIPOLAR) Reproductive: No Respiratory: Yes Immunizations Current: Yes Myocardial Infarction: Yes Menopausal: Yes Ovarian Cysts: Yes Past Surgical History Abdominal Surgery: Yes (LAPROSCOPY FOR ADHESIONS/APPENDECTOMY/CHOLECYSTECTOMY) Appendectomy: Yes Cholecystectomy: Yes Coronary Artery Bypass Graft: No Gynecologic Surgery: Yes (HYSTERECTOMY partial) Hysterectomy: Yes Tonsillectomy: Yes Social History Alcohol Use: Yes (RARELY) Tobacco Use: Yes (1 PPD) Substance Use: Yes Allergies-Medications (Allergen,Severity, Reaction): Coded Allergies: Bee Sting (Verified Adverse Reaction, Severe, Anaphylaxis, 11/14/16) Codeine (Verified Adverse Reaction, Severe, ITCH, 11/14/16) Reported Meds & Prescriptions Reported Meds & Active Scripts Active Ultram (Tramadol HCl) 50 Mg Tab 100 Mg PO Q12HR PRN Metoprolol Succinate ER 24 HR (Metoprolol Succinate) 25 Mg Tab 25 Mg PO DAILY Protonix (Pantoprazole Sodium) 40 Mg Tab 40 Mg PO DAILY Gabapentin 600 Mg Tab 1,200 Mg PO BID Atorvastatin (Atorvastatin Calcium) 20 Mg Tab 20 Mg PO HS Reported Probiotic Multi-Enzyme (Probiotic Product) 1 Tab Tab 3 Tab PO DAILY Before or after a meal Tylenol Extra Strength (Acetaminophen) 500 Mg Tab 1,000 Mg PO Q6H PRN Not to exceed 6 tablets/24hrs Super B-Complex (B-Complex W/Biotin & Folic Acid) 1 Cap 1 Cap PO DAILY Duloxetine DR (Duloxetine HCl) 60 Mg Capdr 60 Mg PO DAILY Ventolin Hfa 18 GM Inh (Albuterol Sulfate) 90 Mcg/Act Aer 2 Puff INH Q4-6H PRN Aspirin 81 Mg Tabdr 81 Mg PO DAILY Baclofen 10 Mg Tab 10 Mg PO BID Take with food or milk Buspirone (Buspirone HCl) 7.5 Mg Tab 7.5 Mg PO BID Glipizide XL (Glipizide) 10 Mg Glynn 10 Mg PO DAILY Take with breakfast or first main meal of the day Review of Systems Except as stated in HPI: all other systems reviewed are Neg Physical Exam Narrative GENERAL: Well-nourished, well-developed irritable white female in no acute distress. SKIN: Warm, diaphoretic. HEAD: Normocephalic. EYES: No scleral icterus. No injection or drainage. NECK: Supple, trachea midline. No JVD or lymphadenopathy. CARDIOVASCULAR: Regular rate and rhythm without murmurs, gallops, or rubs. 2+ DP and radial pulses bilaterally. RESPIRATORY: Breath sounds clear and equal bilaterally. No accessory muscle use. GASTROINTESTINAL: Abdomen soft, nondistended. TTP in the bilateral lower quadrants. Active bowel sounds. MUSCULOSKELETAL: No cyanosis, or edema. BACK: Nontender without obvious deformity. No CVA tenderness. Data Data Last Documented VS Vital Signs Date Time Temp Pulse Resp B/P Pulse Ox O2 Delivery O2 Flow Rate FiO2 12/09/16 18:33 99.1 67 20 173/87 98 Nasal Cannula 2 Orders Electrocardiogram (12/09/16 15:59) Ckmb (Isoenzyme) Profile (12/09/16 15:59) Complete Blood Count With Diff (12/09/16 15:59) Comprehensive Metabolic Panel (12/09/16 15:59) Magnesium (Mg) (12/09/16 15:59) Prothrombin Time / Inr (Pt) (12/09/16 15:59) Act Partial Throm Time (Ptt) (12/09/16 15:59) Troponin I (12/09/16 15:59) Lipase (12/09/16 15:59) Chest, Single Ap (12/09/16 15:59) Iv Access Insert/Monitor (12/09/16 15:59) Sodium Chloride 0.9% Flush (Ns Flush) (12/09/16 16:00) Sodium Chlorid 0.9% 500 Ml Inj (Ns 500 M (12/09/16 16:00) Ondansetron Inj (Zofran Inj) (12/09/16 16:00) Sodium Chlorid 0.9% 500 Ml Inj (Ns 500 M (12/09/16 18:15) Nitroglycerin 2% Oint (Nitroglycerin 2% (12/09/16 18:15) Aspirin Chew (Aspirin Chew) (12/09/16 18:15) Enoxaparin Inj (Lovenox Inj) (12/09/16 18:15) Consult Cardiology (12/09/16 ) (Hub Use Only)Inp Phy Cons/Ref (12/09/16 ) Admit Order (Ed Use Only) (12/09/16 ) Labs Laboratory Tests Test 12/09/16 17:00 White Blood Count 15.4 TH/MM3 Red Blood Count 5.05 MIL/MM3 Hemoglobin 14.9 GM/DL Hematocrit 43.9 % Mean Corpuscular Volume 86.9 FL Mean Corpuscular Hemoglobin 29.5 PG Mean Corpuscular Hemoglobin 34.0 % Concent Red Cell Distribution Width 13.5 % Platelet Count 375 TH/MM3 Mean Platelet Volume 7.1 FL Neutrophils (%) (Auto) 88.9 % Lymphocytes (%) (Auto) 8.5 % Monocytes (%) (Auto) 2.3 % Eosinophils (%) (Auto) 0.1 % Basophils (%) (Auto) 0.2 % Neutrophils # (Auto) 13.7 TH/MM3 Lymphocytes # (Auto) 1.3 TH/MM3 Monocytes # (Auto) 0.4 TH/MM3 Eosinophils # (Auto) 0.0 TH/MM3 Basophils # (Auto) 0.0 TH/MM3 CBC Comment DIFF FINAL Differential Comment Prothrombin Time 10.6 SEC Prothromb Time International 1.0 RATIO Ratio Activated Partial 29.6 SEC Thromboplast Time Sodium Level 140 MEQ/L Potassium Level 3.6 MEQ/L Chloride Level 106 MEQ/L Carbon Dioxide Level 23.5 MEQ/L Anion Gap 11 MEQ/L Blood Urea Nitrogen 7 MG/DL Creatinine 0.71 MG/DL Estimat Glomerular Filtration 85 ML/MIN Rate Random Glucose 233 MG/DL Calcium Level 8.7 MG/DL Magnesium Level 1.6 MG/DL Total Bilirubin 0.5 MG/DL Aspartate Amino Transf 14 U/L (AST/SGOT) Alanine Aminotransferase 18 U/L (ALT/SGPT) Alkaline Phosphatase 74 U/L Total Creatine Kinase 62 U/L Troponin I 0.24 NG/ML Total Protein 7.4 GM/DL Albumin 4.1 GM/DL Lipase 70 U/L [facility] Medical Decision Making Medical Screen Exam Complete: Yes Emergency Medical Condition: Yes Differential Diagnosis ACS versus gastroenteritis versus bowel obstruction versus other Narrative Course 56-year-old female with PMH of CAD, chronic abdominal pain, T2 DM, HTN, HLD, GERD, chronic pain and recent NSTEMI presents to the ED via EMS for evaluation of sudden onset nausea and vomiting at 9 am today. Patient states this was accompanied by palpitations, diaphoresis, similar to symptoms with her NSTEMI " 3 weeks ago." She says she took 2 baby aspirin before arrival. EMS reports that they administered a liter bolus of normal saline, 4 mg Zofran and 2 baby aspirin en route. She states that she had a chemical stress test on outpatient basis recently. Patient is a current smoker. Lpta: Volodymyr PCP: Marshall. Vitals reviewed. Physical exam reveals an irritable white female in no acute distress. No appreciable M/R/G. Equal pulses in the extremities bilaterally. Chest is CTAB. Bilateral lower quadrants are tender but the patient states this is her normal. No swelling of the lower extremities. Otherwise unremarkable. Labs, CXR, fluid bolus, Zofran ordered. The patient will be transferred to a medical pod. Please see the oncoming providers' note for disposition. Rita Holden Dec 09, 2016 15:32
[2016-12-09 16:00] VITALS: BP 170/90; PULSE 82; RESP 18; TEMP 98.2; O2SAT 97
[2016-12-09] MEDS ORDERED: SODIUM CHLORID 0.9% 500 ML INJ 500 ML IV ONE ×2 (16:00→18:15)
[2016-12-09] MEDS ORDERED: ONDANSETRON HCL 4 MG/2 ML VIAL IV PUSH ONE (16:00)
[2016-12-09] MEDS ORDERED: SODIUM CHLORIDE 0.9% FLUSH 10 ML FLUSH IVF PRN (16:00)
--- NOTE | 2016-12-09 16:38 | RADRPT ---
EXAM DATE/TIME: 12/09/2016 16:11 [place] COMPARISON: CHEST SINGLE AP, November 14, 2016, 18:46. INDICATIONS : Nausea, Vomitting, and Chest pain. MEDICAL HISTORY : Myocardial infarction. Hypertension. Diabetes. SURGICAL HISTORY : Cholecystectomy. Appendectomy.Hysterectomy. ENCOUNTER: Initial ACUITY: 1 day PAIN SCORE: 7/10 LOCATION: Bilateral chest FINDINGS: Single AP view of the chest. The lungs are clear. Cardiomediastinal silhouette within normal limits. No evidence of pleural effusion or pneumothorax. CONCLUSION: No acute cardiopulmonary disease identified. Franco Turner MD on December 09, 2016 at 16:36 Board Certified Radiologist. This report was verified electronically.
[2016-12-09 17:23] LABS: AUTOMATED NEUTROPHIL # 13.7 TH/MM3 (1.8-7.7); BASOPHIL % 0.2 % (0.0-2.0); EOSINOPHIL % 0.1 % (0.0-4.0); HEMATOCRIT 43.9 % (35.0-46.0); HEMO FLAGS DIFF FINAL; LYMPH % 8.5 % (9.0-44.0); LYMPHOCYTE # 1.3 TH/MM3 (1.0-4.8); MEAN CELL VOLUME 86.9 FL (80.0-100.0); MEAN CORPUSCULAR HEMOGLOBIN 29.5 PG (27.0-34.0); MONO % 2.3 % (0.0-8.0); NEUT % 88.9 % (16.0-70.0); PLATELET COUNT 375 TH/MM3 (150-450); RED BLOOD COUNT 5.05 MIL/MM3 (4.00-5.30); RED CELL DISTRIBUTION WIDTH 13.5 % (11.6-17.2); WHITE BLOOD COUNT 15.4 TH/MM3 (4.0-11.0)
[2016-12-09 17:32] LABS: APTT (PATIENT) 29.6 SEC (24.3-30.1); PROTHROMBIN TIME - PATIENT 10.6 SEC (9.8-11.6)
[2016-12-09] MEDS ORDERED: B-COCAP9 PO (17:45)
[2016-12-09] MEDS ORDERED: PROB1TAB2 PO (17:45)
[2016-12-09] MEDS ORDERED: ACET-703 PO (17:45)
[2016-12-09 17:55] LABS: ALT (GPT) 18 U/L (10-53); ANION GAP 11 MEQ/L (5-15); AST (GOT) 14 U/L (15-37); BICARBONATE 23.5 MEQ/L (21.0-32.0); BLOOD UREA NITROGEN 7 MG/DL (7-18); CHLORIDE 106 MEQ/L (98-107); GLOMERULAR FILTRATION RATE 85 ML/MIN (>89); MAGNESIUM 1.6 MG/DL (1.5-2.5); POTASSIUM 3.6 MEQ/L (3.5-5.1); SODIUM (NA) 140 MEQ/L (136-145)
[2016-12-09 17:59] LABS: ALKALINE PHOSPHATASE 74 U/L (45-117); CREATINE KINASE 62 U/L (26-192); TOTAL BILIRUBIN ADULT 0.5 MG/DL (0.2-1.0)
[2016-12-09] MEDS ORDERED: NITROGLYCERIN 2% OINT 1 GM PACKET TOPICAL ONE (18:15)
[2016-12-09] MEDS ORDERED: ENOXAPARIN SODIUM 80 MG/0.8 ML SYRINGE SQ ONE (18:15)
--- NOTE | 2016-12-09 18:18 | PD ---
Data Data Last Documented VS Vital Signs Date Time Temp Pulse Resp B/P Pulse Ox O2 Delivery O2 Flow Rate FiO2 12/09/16 16:00 98.2 82 18 170/90 97 Orders Electrocardiogram (12/09/16 15:59) Ckmb (Isoenzyme) Profile (12/09/16 15:59) Complete Blood Count With Diff (12/09/16 15:59) Comprehensive Metabolic Panel (12/09/16 15:59) Magnesium (Mg) (12/09/16 15:59) Prothrombin Time / Inr (Pt) (12/09/16 15:59) Act Partial Throm Time (Ptt) (12/09/16 15:59) Troponin I (12/09/16 15:59) Lipase (12/09/16 15:59) Chest, Single Ap (12/09/16 15:59) Iv Access Insert/Monitor (12/09/16 15:59) Sodium Chloride 0.9% Flush (Ns Flush) (12/09/16 16:00) Sodium Chlorid 0.9% 500 Ml Inj (Ns 500 M (12/09/16 16:00) Ondansetron Inj (Zofran Inj) (12/09/16 16:00) Sodium Chlorid 0.9% 500 Ml Inj (Ns 500 M (12/09/16 18:15) Nitroglycerin 2% Oint (Nitroglycerin 2% (12/09/16 18:15) Aspirin Chew (Aspirin Chew) (12/09/16 18:15) Enoxaparin Inj (Lovenox Inj) (12/09/16 18:15) Labs Laboratory Tests Test 12/09/16 17:00 White Blood Count 15.4 TH/MM3 Red Blood Count 5.05 MIL/MM3 Hemoglobin 14.9 GM/DL Hematocrit 43.9 % Mean Corpuscular Volume 86.9 FL Mean Corpuscular Hemoglobin 29.5 PG Mean Corpuscular Hemoglobin 34.0 % Concent Red Cell Distribution Width 13.5 % Platelet Count 375 TH/MM3 Mean Platelet Volume 7.1 FL Neutrophils (%) (Auto) 88.9 % Lymphocytes (%) (Auto) 8.5 % Monocytes (%) (Auto) 2.3 % Eosinophils (%) (Auto) 0.1 % Basophils (%) (Auto) 0.2 % Neutrophils # (Auto) 13.7 TH/MM3 Lymphocytes # (Auto) 1.3 TH/MM3 Monocytes # (Auto) 0.4 TH/MM3 Eosinophils # (Auto) 0.0 TH/MM3 Basophils # (Auto) 0.0 TH/MM3 CBC Comment DIFF FINAL Differential Comment Prothrombin Time 10.6 SEC Prothromb Time International 1.0 RATIO Ratio Activated Partial 29.6 SEC Thromboplast Time Sodium Level 140 MEQ/L Potassium Level 3.6 MEQ/L Chloride Level 106 MEQ/L Carbon Dioxide Level 23.5 MEQ/L Anion Gap 11 MEQ/L Blood Urea Nitrogen 7 MG/DL Creatinine 0.71 MG/DL Estimat Glomerular Filtration 85 ML/MIN Rate Random Glucose 233 MG/DL Calcium Level 8.7 MG/DL Magnesium Level 1.6 MG/DL Total Bilirubin 0.5 MG/DL Aspartate Amino Transf 14 U/L (AST/SGOT) Alanine Aminotransferase 18 U/L (ALT/SGPT) Alkaline Phosphatase 74 U/L Total Creatine Kinase 62 U/L Troponin I 0.24 NG/ML Total Protein 7.4 GM/DL Albumin 4.1 GM/DL Lipase 70 U/L [facility] Supervised Visit with KEANU: Yes Narrative Course Seemed care patient from EKTA Bettencourt. 56 year-old woman with multiple medical problems including nonobstructive coronary artery disease, extensive smoking history, hypertension, hyperlipidemia , diabetes, depression, bipolar disorder, chronic back pain, chronic abdominal pain, presents emergent part nausea vomiting diaphoresis and pressure-like chest discomfort. She had a heart catheter on a couple years ago that showed mild nonobstructive coronary artery disease. She was admitted earlier this month with similar symptoms, held elevated troponin, was planning for a heart catheterization when she left [place]. She has since followed up with Dr. Helm, her counterintelligence specialist, who apparently performed a nuclear stress test yesterday. She does not have those results. Today she started recurring symptoms of pressure- like chest discomfort or nausea vomiting and diaphoresis. Initial EKG is unremarkable. Initial troponin is elevated. I spoke with Dr. Worley, on-call for Dr. Helm. We'll consult on patient. We'll plan on admission, aspirin, Lovenox. Diagnosis Primary Impression: NSTEMI (non-ST elevated myocardial infarction) Admitting Information Admitting Physician Requests: Admit Mateus Carcamo MD Dec 09, 2016 18:18
[2016-12-09] MEDS: ASPIRIN 81 MG CHEW TAB CHEW SCH (18:30)
[2016-12-09 18:33] VITALS: BP 173/87; PULSE 67; RESP 20; TEMP 99.1; O2SAT 98
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
[2016-12-09 19:00] VITALS: BP 150/67; PULSE 80; RESP 16; TEMP 99; O2SAT 97
[2016-12-09] MEDS ORDERED: SODIUM CHLORIDE 0.9% FLUSH 10 ML FLUSH IV FLUSH PRN (19:00)
[2016-12-09] MEDS ORDERED: ONDANSETRON HCL 4 MG/2 ML VIAL IV PRN (19:00)
[2016-12-09] MEDS ORDERED: PILL SPLITTER OTHER PRN (19:00)
[2016-12-09] MEDS: SODIUM CHLOR 0.9% 1000 ML INJ 1,000 ML IV SCH (20:24)
[2016-12-09] MEDS: GABAPENTIN 300 MG CAP PO SCH (20:41)
[2016-12-09] MEDS: SODIUM CHLORIDE 0.9% FLUSH 10 ML FLUSH IV FLUSH SCH (20:41)
[2016-12-09] MEDS: busPIRone HCL 5 MG TAB PO SCH (20:59)
[2016-12-09] MEDS: INSULIN ASPART SUPPLEMENTAL SCALE SQ SCH (20:59)
[2016-12-09] MEDS: ATORVASTATIN 20 MG TAB PO SCH (20:59)
[2016-12-09 21:00] VITALS: BP 139/65; PULSE 72; RESP 16; O2SAT 98
--- NOTE | 2016-12-09 22:24 | EKG ---
Date Performed: 12/09/2016 Time Performed: 18:24:56 PTAGE: 56 years EKG: Sinus rhythm WITH SINUS ARRHYTHMIA ABNORMAL ECG PREVIOUS TRACING : 11/15/2016 17.34 Compared to prior tracing no significant change DOCTOR: Jono Wong Interpretating Date/Time 12/09/2016 22:21:01
[2016-12-09 23:00] VITALS: BP 140/78; PULSE 79; RESP 15; TEMP 99.2; O2SAT 98
[2016-12-10] VITALS (12 sets, daily range): BP systolic 106–132; BP diastolic 59–80; PULSE 63–88; RESP 20–47; TEMP 97.7–99.1; O2SAT 97–99
[2016-12-10 04:56] LABS: AUTOMATED NEUTROPHIL # 11.3 TH/MM3 (1.8-7.7); BASOPHIL # 0.1 TH/MM3 (0-0.2); BASOPHIL % 0.4 % (0.0-2.0); EOSINOPHIL % 0.1 % (0.0-4.0); HEMO FLAGS DIFF FINAL; LYMPH % 19.4 % (9.0-44.0); LYMPHOCYTE # 2.9 TH/MM3 (1.0-4.8); MEAN CORPUSCULAR HEMOGLOBIN 30.2 PG (27.0-34.0); MEAN CORPUSCULAR HGB CONC 35.1 % (32.0-36.0); MONO % 5.6 % (0.0-8.0); NEUT % 74.5 % (16.0-70.0); PLATELET COUNT 359 TH/MM3 (150-450); RED BLOOD COUNT 4.65 MIL/MM3 (4.00-5.30); RED CELL DISTRIBUTION WIDTH 13.7 % (11.6-17.2); WHITE BLOOD COUNT 15.2 TH/MM3 (4.0-11.0)
[2016-12-10 05:15] LABS: BICARBONATE 26.2 MEQ/L (21.0-32.0); HDL CHOLESTEROL 33.1 MG/DL (40.0-60.0); POTASSIUM 3.3 MEQ/L (3.5-5.1)
[2016-12-10] MEDS ORDERED: ENOXAPARIN SODIUM 80 MG/0.8 ML SYRINGE SQ SCH (06:00)
[2016-12-10] MEDS: INSULIN ASPART SUPPLEMENTAL SCALE SQ SCH ×4 (06:36→20:50)
[2016-12-10] MEDS ORDERED: POTASSIUM CHLORIDE 20 MEQ CONTROLLED RELEASE TAB PO ONE (08:30)
[2016-12-10] MEDS: NITROGLYCERIN 0.1 MG/HR PATCH T-DERMAL SCH (09:00)
[2016-12-10] MEDS: PANTOPRAZOLE SOD 40 MG DELAYED RELEASE TAB PO SCH (09:10)
[2016-12-10] MEDS: busPIRone HCL 5 MG TAB PO SCH ×2 (09:10→20:48)
[2016-12-10] MEDS: GABAPENTIN 300 MG CAP PO SCH ×2 (09:10→20:48)
[2016-12-10] MEDS: DULoxetine HCl DR 60 MG CAP PO SCH (09:10)
[2016-12-10] MEDS: METOPROLOL SUCCINATE 25 MG EXTENDED RELEASE TAB PO SCH (09:11)
[2016-12-10] MEDS: ASPIRIN 81 MG CHEW TAB CHEW SCH (09:11)
[2016-12-10] MEDS: amLODIPine BESYLATE 5 MG TAB PO SCH (09:12)
--- NOTE | 2016-12-10 09:37 | MB ---
cc: MAGUE MANZANO M.D. DATE OF CONSULTATION: 12/10/2016 REASON FOR CONSULTATION: Evaluation of non-STEMI. HISTORY OF PRESENT ILLNESS Sara Gonzalez is a 56-year-old female who has seen Dr. Helm and Dr. Maldonado in my practice before. She has multiple cardiac risk factors, the worse one is she has a two-pack per day smoking history for 40 years, last time she quit was over 2 years ago. She also smokes marijuana daily. She has other risk factors including type 2 diabetes, hyperlipidemia and hypertension. She comes in because yesterday she developed abrupt onset of nausea and vomiting. She threw up about 10 times, this was about 9 o'clock in the morning and amidst of this she got some uncomfortable feeling in her chest, in the diaphragm area with no radiation, lasting about 2 hours. Her troponin has since gone up to 0.98. She has had no further chest discomfort since yesterday, according to her. Potassium level this morning is also low at 3.3. Her chest pain is relatively infrequent, she gets only occasionally. She has had similar presentation on November 15, her troponin went up to 0.77. She had a similar presentation March 29, 2015. She had a cardiac catheterization there showing 25% mid LAD disease, 25% right coronary artery disease and normal circumflex artery. She just underwent a nuclear stress test in my office, this was performed December 08 and it showed homogeneous radiotracer distribution throughout the myocardium with no evidence for ischemia. MEDICATIONS Current medications include: 1. Metoprolol 25 mg sustained release daily. 2. 160 mg of aspirin. 3. Subcu Lovenox. 4. Gabapentin. 5. Pantoprazole. PAST MEDICAL HISTORY Past medical history includes: 1. Bipolar disease. 2. Chronic kidney disease. 3. Depression. 4. Type 2 diabetes. 5. Hyperlipidemia. 6. Hypertension. 7. Hypothyroidism. 8. Chronic back pain. PAST SURGICAL HISTORY Past surgical history includes: 1. Appendectomy. 2. Cholecystectomy. 3. Hysterectomy. 4. Lysis of adhesions. 5. Oophorectomy. ALLERGIES BEE STINGS, CODEINE. FAMILY HISTORY Unknown. SOCIAL HISTORY Notable for the smoking tobacco and marijuana smoking. REVIEW OF SYSTEMS Notable for frequent GI problems and chronic back pain. Remaining review of systems is unremarkable. PHYSICAL EXAMINATION GENERAL: Well-developed, well-nourished female. She appears a little older than her stated age. VITAL SIGNS: Charted. HEENT: Exam unremarkable. NECK: No JVD, no bruits. CHEST: Clear to auscultation. CARDIAC: S1-S2, regular rate and rhythm. No murmurs, gallops. ABDOMEN: Soft, nontender. No masses or organomegaly. EXTREMITIES: No clubbing, cyanosis or edema. Peripheral pulses are intact. EKG Shows sinus rhythm without acute ST-T wave changes. LABORATORY DATA Troponin is mildly elevated at 0.98, hematocrit 40.0. White count is elevated at 15,200, potassium 3.3 and I have ordered for the potassium p.o. IMPRESSION This is the third non-STEMI in this woman last year and a half. What makes the most amount of sense is that she has coronary spasm from smoking. She does have fixed atherosclerotic disease in her cath but the disease in her cath was fairly minor. She does not have much in the way of exertional symptoms. She states much of this gets brought on when she has her nausea and vomiting attacks. I do not know if she has gastroparesis or some other problem linked to the nausea and vomiting attacks. She just had a nuclear stress test done this week and it shows no perfusion abnormalities. I have offered her a cardiac catheterization. I told her the likelihood is that we will not find any significant blockage and that her diagnosis will be coronary spasm. Also explained to her in detail that coronary spasm is very difficult to treat if someone does not quit smoking. I am going to go ahead and introduce a calcium channel blockade and long-acting nitroglycerin to treat this. She does not want to have a cardiac cath and I did not push hard considering the negative stress test. I have added those medications this morning. Will check an echo to see if she has any wall motion abnormalities. Further therapy to be determined. MD DAYRON Callejas/GABI /8:57 AM /9:05 AM
[2016-12-10] MEDS ORDERED: CLOPIDOGREL 300 MG TAB PO ONE (10:00)
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
[2016-12-10] MEDS: MORPHINE SULFATE 8 MG/ML INJ IV PUSH PRN ×2 (10:35→20:49)
[2016-12-10] MEDS: BACLOFEN 10 MG TAB PO SCH ×2 (13:00→20:49)
--- NOTE | 2016-12-10 13:40 | EC ---
Study Study Date:12/10/2016 STUDY CONCLUSIONS SUMMARY LEFT VENTRICLE: The cavity size was normal. Wall thickness was normal. Systolic function was vigorous. The estimated ejection fraction was 70%, in the range of 65% to 70%. Wall motion was normal; there were no regional wall motion abnormalities. If LV function is below 40, please consider prescribing an ACEI or ARB or document rationale for non-use. PROCEDURE DATA STUDY STATUS: Elective. Procedure: Transthoracic echocardiography. Image quality was good. Scanning was performed from the parasternal, apical, and subcostal acoustic windows. Study completion: The patient tolerated the procedure well. Transthoracic echocardiography. M-mode, complete 2D, complete spectral Doppler, and color Doppler. Patient status: Inpatient. CARDIAC ANATOMY LEFT VENTRICLE: The cavity size was normal. Wall thickness was normal. Systolic function was vigorous. The estimated ejection fraction was 70%, in the range of 65% to 70%. Wall motion was normal; there were no regional wall motion abnormalities. AORTIC VALVE: Trileaflet; normal thickness leaflets. Doppler: Transvalvular velocity was within the normal range. There was no stenosis. No regurgitation. Peak gradient: 11mm Hg (S). AORTA: Aortic root: The aortic root was normal in size. MITRAL VALVE: Structurally normal valve. Doppler: Transvalvular velocity was within the normal range. There was no evidence for stenosis. Trace regurgitation. Peak gradient: 2mm Hg (D). LEFT ATRIUM: The atrium was normal in size. RIGHT VENTRICLE: The cavity size was normal. Wall thickness was normal. PULMONIC VALVE: Doppler: Transvalvular velocity was within the normal range. There was no evidence for stenosis. No regurgitation. TRICUSPID VALVE: Structurally normal valve. Doppler: Transvalvular velocity was within the normal range. Trace regurgitation. PULMONARY ARTERY: The main pulmonary artery was normal-sized. Systolic pressure was within the normal range. RIGHT ATRIUM: The atrium was normal in size. PERICARDIUM: There was no pericardial effusion. SYSTEMIC VEINS: Inferior vena cava: The vessel was normal in size. BASIC MEASUREMENTS ADULT Normal Left ventricle LV internal dimension, ED, chordal level, 51.5 mm 43-52 PLAX LV internal dimension, ES, chordal level, 36.7 mm 23-38 PLAX Fractional shortening, chordal level, PLAX *29 % >29 LV posterior wall thickness, ED 8.97 mm IVS/LVPW ratio, ED *1.39 <1.3 Ventricular septum Septal thickness, ED 12.5 mm Aortic valve Leaflet separation 20 mm 15-26 Left atrium Anterior-posterior dimension 33 mm Right ventricle RV internal dimension, ED, PLAX *18.5 mm 19-38 BASIC MEASUREMENTS ADULT Normal Aortic valve Leaflet separation 20 mm 15-26 Aorta Root diameter, ED 36 mm 20-37 DOPPLER MEASUREMENTS ADULT Normal Main pulmonary artery Pressure, S 15 mm Hg =30 Aortic valve Peak velocity, S 167 cm/s Peak gradient, S 11 mm Hg Mitral valve Peak E-wave velocity 72.1 cm/s Peak A-wave velocity 63.7 cm/s Peak gradient, D 2 mm Hg Peak E/A ratio 1.1 Tricuspid valve Regurgitant peak velocity 126 cm/s Peak RV-RA gradient, S 6 mm Hg Maximal regurgitant velocity 126 cm/s Systemic veins Estimated CVP 5 mm Hg Right ventricle RV pressure, S 15 mm Hg <30 LEGEND: Mean values are shown as u=mean value. Asterisk (*) piña values outside specified normal range. Prepared and signed by Robi Espinoza [id number]
[2016-12-10] MEDS ORDERED: METOCLOPRAMIDE HCL 10 MG/2 ML VIAL ONE (15:09)
--- NOTE | 2016-12-10 16:28 | RADRPT ---
EXAM DATE/TIME: 12/10/2016 13:29 [place] COMPARISON: No previous studies available for comparison. INDICATIONS : Nausea and vomiting with abdominal pain. DOSE: 1.1 mCi Tc99m Sulfur Colloid Labeled Whole egg PO MEDICATONS: 1.) 5 mg Reglan IV at 95 minutes IMAGIN hrs MEDICAL HISTORY : Hypertension. Diabetes mellitus type 2. Gastroesophageal reflux disease. Croonary artery disease, abd ominal adhesions and bipolar. SURGICAL HISTORY : Hysterectomy. Tonsillectomy. Cholecystectomy. Cardiac cath and adhesiolysis. ENCOUNTER: Initial ACUITY: 2 days PAIN SCALE: 2/10 LOCATION: Abdomen. TECHNIQUE: Following the oral ingestion of radiotracer-labeled meal, dynamic sequential images in the ALB[place]IAN projec tion were acquired with simultaneous computer acquisition. The data set was decay-corrected. FINDINGS: There is little to no gastric emptying for 75 minutes. Reglan was was administered at 75 minutes wit h minimal increase in the rate of emptying. CONCLUSION: Markedly delayed gastric emptying with minimal response to Reglan. Tyler Braxton MD FACR on December 10, 2016 at 16:26 Board Certified Radiologist. This report was verified electronically.
[2016-12-10] MEDS ORDERED: ACETAMINOPHEN 325 MG TAB PO PRN (17:30)
[2016-12-10] MEDS ORDERED: NITROGLYCERIN 0.4 MG SL 25 TABS/BTL SL PRN (17:30)
--- NOTE | 2016-12-10 20:12 | EKG ---
Date Performed: 12/10/2016 Time Performed: 05:29:53 PTAGE: 56 years EKG: Sinus rhythm NORMAL ECG PREVIOUS TRACING : 12/09/2016 23.07 Compared to prior tracing no significant change DOCTOR: Jono Wong Interpretating Date/Time 12/10/2016 20:12:04
--- NOTE | 2016-12-10 20:34 | EKG ---
Date Performed: 12/09/2016 Time Performed: 23:04:19 PTAGE: 56 years EKG: Sinus rhythm NORMAL ECG PREVIOUS TRACING : 12/09/2016 18.24 Compared to prior tracing no significant change DOCTOR: Jono Wong Interpretating Date/Time 12/10/2016 20:33:35
--- NOTE | 2016-12-10 20:37 | EKG ---
Date Performed: 12/09/2016 Time Performed: 15:16:40 PTAGE: 56 years EKG: SINUS BRADYCARDIA WITH SINUS ARRHYTHMIA ABNORMAL ECG Compared to prior tracing no significa nt change DOCTOR: Jono Wong Interpretating Date/Time 12/10/2016 20:36:49
[2016-12-10] MEDS: ATORVASTATIN 20 MG TAB PO SCH (20:49)
[2016-12-10] MEDS: SODIUM CHLORIDE 0.9% FLUSH 10 ML FLUSH IV FLUSH SCH (20:50)
[2016-12-10] MEDS: SODIUM CHLOR 0.9% 1000 ML INJ 1,000 ML IV SCH (20:51)
[2016-12-11 03:00] VITALS: BP 139/76; PULSE 65; O2SAT 97
[2016-12-11] MEDS: MORPHINE SULFATE 8 MG/ML INJ IV PUSH PRN ×2 (04:08→08:15)
[2016-12-11] MEDS: SODIUM CHLOR 0.9% 1000 ML INJ 1,000 ML IV SCH (05:20)
[2016-12-11] MEDS: INSULIN ASPART SUPPLEMENTAL SCALE SQ SCH (06:38)
[2016-12-11 07:07] LABS: AUTOMATED NEUTROPHIL # 8.8 TH/MM3 (1.8-7.7); BASOPHIL # 0.1 TH/MM3 (0-0.2); BASOPHIL % 0.5 % (0.0-2.0); EOSINOPHIL # 0.1 TH/MM3 (0-0.4); EOSINOPHIL % 1.1 % (0.0-4.0); HEMO FLAGS DIFF FINAL; LYMPH % 24.4 % (9.0-44.0); LYMPHOCYTE # 3.1 TH/MM3 (1.0-4.8); MEAN CELL VOLUME 85.2 FL (80.0-100.0); MEAN CORPUSCULAR HEMOGLOBIN 30.1 PG (27.0-34.0); MEAN CORPUSCULAR HGB CONC 35.4 % (32.0-36.0); MONO % 5.5 % (0.0-8.0); NEUT % 68.5 % (16.0-70.0); PLATELET COUNT 320 TH/MM3 (150-450); RED BLOOD COUNT 4.46 MIL/MM3 (4.00-5.30); RED CELL DISTRIBUTION WIDTH 13.3 % (11.6-17.2); WHITE BLOOD COUNT 12.9 TH/MM3 (4.0-11.0)
[2016-12-11 07:22] LABS: POTASSIUM 3.4 MEQ/L (3.5-5.1)
--- NOTE | 2016-12-11 07:46 | PD.CONS ---
HPI History of Present Illness This is a 56 year old female with a hx of coronary artery disease with a recent NSTEMI earlier this month, hypertension, hyperlipidemia, type II DM, and intermittent nausea/vomiting. She came to the ER for evaluation of nausea/ vomiting with associated chest pain/diaphoresis/palpitations. She has been evaluated by Dr. Espinoza with animal laboratory helper, who feels that she is likely having coronary spasms from smoking. The patient reported that her nausea and vomiting attacks seem to precipitate her episodes of chest pain. According to his note, she recently had a stress test and this was negative. A cardiac catheterization was offered, but the patient declined and it was thought that this most likely would not reveal any blockages if her symptoms are related to coronary spasms. She was started on a calcium channel rahat and long acting nitroglycerin. GES (12/10/16) revealed markedly delayed gastric emptying with minimal response to Reglan. GI was consulted for further evaluation and treatment of her recurrent nausea/vomiting and for evaluation of chronic abdominal pain. The patient is extremely agitated and uncooperative. She refuses to provide any information and is screaming that she had nausea because of her heart attack and the only thing wrong with her stomach is her abdominal adhesions, which no one will do anything. She refuses to answer any questions, stating that we are not going to do anything for her anyways and instructed me to leave her alone. According to our office records, she was evaluated with colonoscopy (11/28/15) and this revealed diminutive polyp hepatic flexure, diverticulosis in the sigmoid, descending colon, 5 demanded a polyps in the rectosigmoid, random biopsies from the ascending and descending in view of diarrhea, retroflex views revealed small internal hemorrhoids, external hemorrhoids. Colonic mucosa without significant histologic abnoramality, tubular adenoma, colonic mucosa without significant histologic abnormality, tubular adenoma (rectosigmoid polyp). EGD (08/01/15) revealed gastritis in the antrum, normal duodenum, irregular Z line, large amount of bile in the stomach, retroflex views revealed a hiatal hernia. Pathology second portion of duodenum with superficial small bowel mucosa with no significant histopathologic abnormalities, gastric mucosa with no significant histopathologic abnormalities , distal esophagus biopsy with squamous mucosa with no significant histopathologic abnormalities, random biopsies with no significant histopathologic abnormalities, fragments of a hyperplastic polyp from the rectum. (Jacquie AliceaP) PFSH Past Medical History Bipolar disorder Chronic back pain Type 2 diabetes Hyperlipidemia Hypertension Coronary artery disease Postprocedural pelvic peritoneal adhesions Past Surgical History Appendectomy Cholecystectomy Hysterectomy Injection of trigger points Cardiac catheterization Surgical lysis of intestinal adhesions Tonsillectomy EGD Colonoscopy (Jacquie Alicea) Coded Allergies: Bee Sting (Verified Adverse Reaction, Severe, Anaphylaxis, 11/14/16) Codeine (Verified Adverse Reaction, Severe, ITCH, 11/14/16) Medications Allergies Coded Allergies Type Severity Reaction Last Updated Verified Bee Sting Adverse Reaction Severe Anaphylaxis 11/14/16 Yes Codeine Adverse Reaction Severe ITCH 11/14/16 Yes Active Scripts Medications Dose Route/Sig Days Date Category Dose Instructions Probiotic Multi-Enzyme (Probiotic Product) 1 Tab Tab 3 Tab PO DAILY 12/09/16 Reported Before or after a meal Tylenol Extra Strength (Acetaminophen) 500 Mg Tab 1,000 Mg PO Q6H PRN 12/09/16 Reported Not to exceed 6 tablets/24hrs Super B-Complex (B-Complex W/Biotin & Folic Acid) 1 Cap 1 Cap PO DAILY 12/09/16 Reported Ultram (Tramadol HCl) 50 Mg Tab 100 Mg PO Q12HR PRN 12/08/[address] (Duloxetine HCl) 60 Mg Capdr 60 Mg PO DAILY 11/15/16 Reported Ventolin Hfa 18 GM Inh (Albuterol Sulfate) 90 Mcg/Act Aer 2 Puff INH Q4-6H PRN 11/14/16 Reported Aspirin 81 Mg Tabdr 81 Mg PO DAILY 11/14/16 Reported Baclofen 10 Mg Tab 10 Mg PO BID 11/14/16 Reported Take with food or milk Buspirone (Buspirone HCl) 7.5 Mg Tab 7.5 Mg PO BID 11/14/16 Reported Glipizide XL (Glipizide) 10 Mg Glynn 10 Mg PO DAILY 11/14/16 Reported Take with breakfast or first main meal of the day Metoprolol Succinate ER 24 HR (Metoprolol Succinate) 25 Mg Tab 25 Mg PO DAILY 08/11/16 Rx Protonix (Pantoprazole Sodium) 40 Mg Tab 40 Mg PO DAILY 08/11/16 Rx Gabapentin 600 Mg Tab 1,200 Mg PO BID 08/11/16 Rx Atorvastatin (Atorvastatin Calcium) 20 Mg Tab 20 Mg PO HS 07/21/16 Rx Family History Adopted Social History Refuses to answer. (Jacquie Alicea) Review of Systems ROS Uncooperative. Refuses to answer any questions. (Jacquie Alicea) GI Exam Vitals I&O Vital Signs Date Time Temp Pulse Resp B/P Pulse Ox O2 Delivery O2 Flow Rate FiO2 12/11/16 03:00 65 139/76 97 12/10/16 23:00 98.4 63 120/73 99 12/10/16 19:00 99.1 65 108/59 97 12/10/16 17:47 97 21 12/10/16 16:01 79 12/10/16 15:58 98.4 71 20 132/80 97 12/10/16 13:00 98.7 75 106/66 98 12/10/16 13:00 70 12/10/16 11:00 74 12/10/16 11:00 20 12/10/16 10:00 72 12/10/16 09:00 72 12/10/16 08:00 97.7 82 20 119/64 97 I/O 12/10/16 12/10/16 12/10/16 12/11/16 12/11/16 12/11/16 07:00 15:00 23:00 07:00 15:00 23:00 Intake Total 1960 ml Output Total 2300 ml Balance -340 ml Intake Oral 360 ml IV Total 1600 ml Output Urine Total 2300 ml Imaging Last Impressions Gastric Emptying Nuclear Medicine 12/10/16 1205 Signed Impressions: Service Date/Time: Saturday, December 10, 2016 13:29 - CONCLUSION: Markedly delayed gastric emptying with minimal response to Reglan. Tyler Braxton MD FACR Chest X-Ray 12/09/16 1559 Signed Impressions: Service Date/Time: Friday, December 09, 2016 16:11 - CONCLUSION: No acute cardiopulmonary disease identified. Franco Turner MD Laboratory Test 12/11/16 05:36 White Blood Count 12.9 TH/MM3 Red Blood Count 4.46 MIL/MM3 Hemoglobin 13.5 GM/DL Hematocrit 38.0 % Mean Corpuscular Volume 85.2 FL Mean Corpuscular Hemoglobin 30.1 PG Mean Corpuscular Hemoglobin 35.4 % Concent Red Cell Distribution Width 13.3 % Platelet Count 320 TH/MM3 Mean Platelet Volume 7.5 FL Neutrophils (%) (Auto) 68.5 % Lymphocytes (%) (Auto) 24.4 % Monocytes (%) (Auto) 5.5 % Eosinophils (%) (Auto) 1.1 % Basophils (%) (Auto) 0.5 % Neutrophils # (Auto) 8.8 TH/MM3 Lymphocytes # (Auto) 3.1 TH/MM3 Monocytes # (Auto) 0.7 TH/MM3 Eosinophils # (Auto) 0.1 TH/MM3 Basophils # (Auto) 0.1 TH/MM3 CBC Comment DIFF FINAL Differential Comment Sodium Level 140 MEQ/L Potassium Level 3.4 MEQ/L Chloride Level 108 MEQ/L Carbon Dioxide Level 22.0 MEQ/L Anion Gap 10 MEQ/L Blood Urea Nitrogen 13 MG/DL Creatinine 0.61 MG/DL Estimat Glomerular Filtration 101 ML/MIN Rate Random Glucose 105 MG/DL Calcium Level 8.4 MG/DL Physical Examination Refused to be examined (Jacquie Alicea) Assessment and Plan Plan ASSESSMENT: - Nausea with abnormal GES suggestive of gastroparesis with minimal response to Reglan. Pt is extremely agitated and uncooperative and refusing to provide any history. However, she states she is not having n/v at this time. Tried to d/w patient gastroparesis, but she became upset and told me to leave. - Chronic lower abdominal pain. Pt reports hx of adhesions, that "no one will do anything about." She refused to provide any other history or to be examined. Reviewed office records, Colonoscopy (11/28/15) and this revealed diminutive polyp hepatic flexure, diverticulosis in the sigmoid, descending colon, 5 demanded a polyps in the rectosigmoid, random biopsies from the ascending and descending in view of diarrhea, retroflex views revealed small internal hemorrhoids, external hemorrhoids. Colonic mucosa without significant histologic abnormality, tubular adenoma, colonic mucosa without significant histologic abnormality, tubular adenoma (rectosigmoid polyp). EGD (08/01/15) revealed gastritis in the antrum, normal duodenum, irregular Z line, large amount of bile in the stomach, retroflex views revealed a hiatal hernia. Pathology second portion of duodenum with superficial small bowel mucosa with no significant histopathologic abnormalities, gastric mucosa with no significant histopathologic abnormalities, distal esophagus biopsy with squamous mucosa with no significant histopathologic abnormalities, random biopsies with no significant histopathologic abnormalities, fragments of a hyperplastic polyp from the rectum. - CAD with recent NSTEMI. She has been evaluated by Dr. Espinoza with animal laboratory helper , who feels that she is likely having coronary spasms from smoking. The patient previously reported that her nausea and vomiting attacks seem to precipitate her episodes of chest pain. According to his note, she recently had a stress test and this was negative. A cardiac catheterization was offered, but the patient declined and it was thought that this most likely would not reveal any blockages if her symptoms are related to coronary spasms. She was started on a calcium channel rahat and long acting nitroglycerin. PLAN: - Pt extremely agitated and refusing to provide history or to be examined- shouting profanities for me to leave. - Recommend gastroparesis diet- soft diet, small frequent meals, chewing food well, small bites- pt not receptive - Pt can follow up with Dr. Roegr as outpatient or we can be reconsulted if she is agreeable to be seen. At this time, she is refusing to be seen by GI - Pt seen and examined by Dr. Yao and myself and this note is written on his behalf (Jacquie Alicea) Physician Comments patient seen not cooperative will be signing AMA continue supportive care (Herminio Yao MD) Jacquie Alicea Dec 11, 2016 07:46 Herminio Yao MD Dec 11, 2016 15:19
[2016-12-11 08:00] VITALS: BP 144/78; PULSE 66; TEMP 98.4; O2SAT 98
[2016-12-11] MEDS: GABAPENTIN 300 MG CAP PO SCH (08:13)
[2016-12-11] MEDS: amLODIPine BESYLATE 5 MG TAB PO SCH (08:14)
[2016-12-11] MEDS: METOPROLOL SUCCINATE 25 MG EXTENDED RELEASE TAB PO SCH (08:14)
[2016-12-11] MEDS: ASPIRIN 81 MG CHEW TAB CHEW SCH (08:14)
[2016-12-11] MEDS: BACLOFEN 10 MG TAB PO SCH (08:14)
[2016-12-11] MEDS: DULoxetine HCl DR 60 MG CAP PO SCH (08:14)
[2016-12-11] MEDS: busPIRone HCL 5 MG TAB PO SCH (08:14)
[2016-12-11] MEDS: PANTOPRAZOLE SOD 40 MG DELAYED RELEASE TAB PO SCH (08:14)
[2016-12-11] MEDS: NITROGLYCERIN 0.1 MG/HR PATCH T-DERMAL SCH ×2 (08:15→08:24)
[2016-12-11] MEDS: SODIUM CHLORIDE 0.9% FLUSH 10 ML FLUSH IV FLUSH SCH (08:16)
[2016-12-11 08:25] VITALS: RESP 18
[2016-12-11] MEDS ORDERED: CLOPIDOGREL 75 MG TAB PO SCH (09:00)
[2016-12-11] MEDS ORDERED: POTASSIUM CHLORIDE 20 MEQ CONTROLLED RELEASE TAB PO ONE (09:45)
--- NOTE | 2016-12-11 09:55 | PD.CARD.PN ---
Subjective Subjective Remarks no angina. Patient was extremely rude. Objective Medications Current Medications Medications (Trade) Dose Ordered Sig/Raul Route Start Time Stop Time Status Last Admin (Aspirin Chew) 162 mg DAILY CHEW 12/09/16 18:15 12/11/16 08:14 (Lipitor) 20 mg HS PO 12/09/16 21:00 12/10/16 20:49 (Buspar) 7.5 mg BID PO 12/09/16 21:00 12/11/16 08:14 (Cymbalta Dr) 60 mg DAILY PO 12/10/16 09:00 12/11/16 08:14 (Toprol Xl) 25 mg DAILY PO 12/10/16 09:00 12/11/16 08:14 (Protonix) 40 mg DAILY PO 12/10/16 09:00 12/11/16 08:14 (NS Flush) 2 ml BID IV FLUSH 12/09/16 21:00 12/11/16 08:16 (NS Flush) 2 ml UNSCH PRN IV FLUSH 12/09/16 19:00 (Morphine Inj) 2 mg Q2H PRN IV PUSH 12/09/16 19:00 12/11/16 08:15 (Zofran Inj) 4 mg Q6H PRN IV 12/09/16 19:00 Hold Miscellaneous 1 ea 1 ea UNSCH PRN OTHER 12/09/16 19:00 (NS 1000 ml Inj) 1,000 ml @ 120 mls/hr Q8H20M IV 12/09/16 20:00 12/11/16 05:20 (Norvasc) 5 mg DAILY PO 12/10/16 09:00 12/11/16 08:14 (Nitro-Dur 0.1 Mg Patch.24hr) 1 patch DAILY T-DERMAL 12/10/16 09:00 (Plavix) 75 mg DAILY PO 12/11/16 09:00 12/11/16 08:14 (Lioresal) 10 mg BID PO 12/10/16 13:00 12/11/16 08:14 (Neurontin) 600 mg BID PO 12/10/16 21:00 12/11/16 08:13 (Tylenol) 650 mg Q4H PRN PO 12/10/16 17:30 12/10/16 18:44 (Nitrostat Sl) 0.4 mg Q5M PRN SL 12/10/16 17:30 (KCl) 40 meq ONCE ONCE PO 12/11/16 09:45 12/11/16 09:46 UNV Vital Signs / I&O Vital Signs Date Time Temp Pulse Resp B/P Pulse Ox O2 Delivery O2 Flow Rate FiO2 12/11/16 08:25 18 12/11/16 03:00 65 139/76 97 12/10/16 23:00 98.4 63 120/73 99 12/10/16 19:00 99.1 65 108/59 97 12/10/16 17:47 97 21 12/10/16 16:01 79 12/10/16 15:58 98.4 71 20 132/80 97 12/10/16 13:00 98.7 75 106/66 98 12/10/16 13:00 70 12/10/16 11:00 74 12/10/16 10:00 72 I/O 12/10/16 12/10/16 12/10/16 12/11/16 12/11/16 12/11/16 07:00 15:00 23:00 07:00 15:00 23:00 Intake Total 1960 ml Output Total 2300 ml Balance -340 ml Intake Oral 360 ml IV Total 1600 ml Output Urine Total 2300 ml Physical Exam GENERAL: Well developed, well nourished. No acute distress. HEENT: Jugular venous pressure is normal. CHEST: Lungs clear to auscultation bilaterally. Unlabored respiratory effort. CARDIAC: Regular rate and rhythm without S3, S4 ABDOMEN: Soft, Bowel sounds present. EXTREMITIES: No clubbing, cyanosis, or edema. Laboratory Laboratory Tests Test 12/11/16 05:36 White Blood Count 12.9 TH/MM3 Red Blood Count 4.46 MIL/MM3 Hemoglobin 13.5 GM/DL Hematocrit 38.0 % Mean Corpuscular Volume 85.2 FL Mean Corpuscular Hemoglobin 30.1 PG Mean Corpuscular Hemoglobin 35.4 % Concent Red Cell Distribution Width 13.3 % Platelet Count 320 TH/MM3 Mean Platelet Volume 7.5 FL Neutrophils (%) (Auto) 68.5 % Lymphocytes (%) (Auto) 24.4 % Monocytes (%) (Auto) 5.5 % Eosinophils (%) (Auto) 1.1 % Basophils (%) (Auto) 0.5 % Neutrophils # (Auto) 8.8 TH/MM3 Lymphocytes # (Auto) 3.1 TH/MM3 Monocytes # (Auto) 0.7 TH/MM3 Eosinophils # (Auto) 0.1 TH/MM3 Basophils # (Auto) 0.1 TH/MM3 CBC Comment DIFF FINAL Differential Comment Sodium Level 140 MEQ/L Potassium Level 3.4 MEQ/L Chloride Level 108 MEQ/L Carbon Dioxide Level 22.0 MEQ/L Anion Gap 10 MEQ/L Blood Urea Nitrogen 13 MG/DL Creatinine 0.61 MG/DL Estimat Glomerular Filtration 101 ML/MIN Rate Random Glucose 105 MG/DL Calcium Level 8.4 MG/DL Assessment and Plan Problem List: (1) NSTEMI (non-ST elevated myocardial infarction) Assessment and Plan: most likely secondary to spasm caused by smoking (2) Coronary artery spasm (3) Tobacco abuse Assessment and Plan: Counseled (4) Marijuana use, continuous Assessment and Plan: counseled Robi Espinoza MD Dec 11, 2016 09:55
[2016-12-11] MEDS ORDERED: AMLO5 PO (10:59)
[2016-12-11] MEDS ORDERED: PLAV75TA29 PO (10:59)
--- NOTE | 2016-12-11 11:00 | PD.AMA ---
Against Medical Advice Note Diagnosis: (1) Chest pain Discharge Disposition: Against Medical Advice Pt Condition on Discharge: Stable AMA Statement Patient Sara Gonzalez has decided to leave the hospital against medical advice. This patient has the capacity to refuse care and understands the risks of leaving, including permanent disability and/or , and has had an opportunity to ask questions about her condition. The patient has been informed that she may return for care at any time, and follow up has been arranged/ advised. Frederic Phan MD R3 Dec 11, 2016 10:59
[2016-12-11 11:34] VITALS: O2SAT 98
[2017-01-12] MEDS ORDERED: ULTR50TA5 PO (13:46)
== END 2016-12-11 10:09 | disposition left against medical advice (07) | DRG 282 ==
LOC: NEDAMB 14:42 → NEDA 18:47 → HCIS 12-10 06:18
PROVIDERS: ADMIT Family Medicine; ATTEND Family Medicine
DX: I22.2 Subsequent non-ST elevation (NSTEMI) myocardial infarction (principal); K31.84 Gastroparesis; E11.43 Type 2 diabetes mellitus with diabetic autonomic (poly)neuropathy; I10 Essential (primary) hypertension; F17.210 Nicotine dependence, cigarettes, uncomplicated; I21.4 Non-ST elevation (NSTEMI) myocardial infarction; F32.9 Major depressive disorder, single episode, unspecified; J44.9 Chronic obstructive pulmonary disease, unspecified; E78.5 Hyperlipidemia, unspecified; G89.29 Other chronic pain; K21.9 Gastro-esophageal reflux disease without esophagitis; K58.9 Irritable bowel syndrome, unspecified; F12.90 Cannabis use, unspecified, uncomplicated; F41.9 Anxiety disorder, unspecified; E87.6 Hypokalemia; E03.9 Hypothyroidism, unspecified; K57.30 Diverticulosis of large intestine without perforation or abscess without bleeding; K44.9 Diaphragmatic hernia without obstruction or gangrene; I25.111 Atherosclerotic heart disease of native coronary artery with angina pectoris with documented spasm; Z79.84 Long term (current) use of oral hypoglycemic drugs
CPT/HCPCS: 71010; 78264; 80048; 80053; 80061; 82550; 82948; 83690; 83735; 84484; 85025; 85610; 85730; 93005; 93306; 96361; 96372; 96374; A9541; J1650; J2270; J2405; J2765; J7030; J7040

== ENCOUNTER 2017-05-29 14:18 | Inpatient (IN) | payer OTHER ==
[~2017-05-29] VITALS: Ht 175.3 cm; Wt 105.8 kg
[2017-05-29] VITALS (7 sets, daily range): BP systolic 104–113; BP diastolic 56–64; PULSE 66–99; RESP 14–21; TEMP 97.6–98.6; O2SAT 94–100
[~2017-05-29 14:18] MED LIST changes: +ACET-703 PO; +AMLO5 PO; +B-COCAP9 PO; -LACTCAP8 PO; +PLAV75TA29 PO; +PROB1TAB2 PO; -VITACAP7 PO
[2017-05-29] MEDS ORDERED: ASPI81CH37 CHEW (14:58)
[2017-05-29] MEDS ORDERED: ACET-822 (14:58)
--- NOTE | 2017-05-29 14:59 | PD ---
HPI Chief Complaint: Abdominal Pain Time Seen by Provider: 14:48 Travel History International Travel<30 days: No Contact w/Intl Traveler<30days: No Traveled to known affect area: No History of Present Illness HPI This 57-year-old female says she been sick for 2 days. She says she's had vomiting diarrhea and abdominal pain. The abdominal pain seems greatest in the right upper quadrant. She has a history of cholecystectomy, oophorectomy and appendectomy. She says she's had a temp as high as 100.6. She estimates that she has been but hasn't vomited 15 times the last day and a half. She been having loose stools. She says she's had intermittent abdominal pain in the past which is attributed to adhesions. She had surgery for ruptured cyst many years ago PFSH Past Medical History Hx Anticoagulant Therapy: Yes (2 BABY ASA DAILY) Bipolar Disorder: Yes Heart Rhythm Problems: Yes (PATIENT STATES "MY HEART SKIPS A BEAT") Cancer: No Cardiac Catheterization: No Cardiovascular Problems: Yes High Cholesterol: Yes Chest Pain: Yes Congestive Heart Failure: No COPD: Yes Cerebrovascular Accident: Yes (TIA) Coronary Artery Disease: Yes Diabetes: Yes Patient Takes Glucophage: No Diminished Hearing: Yes Endocrine: Yes Genitourinary: No Headaches: No Hypertension: Yes Immune Disorder: No Musculoskeletal: Yes (chronic back pain) Neurologic: Yes Psychiatric: Yes (BIPOLAR) Reproductive: No Respiratory: Yes Immunizations Current: Yes Myocardial Infarction: Yes ?: Not Menopausal: Yes Ovarian Cysts: Yes Past Surgical History Abdominal Surgery: Yes (LAPROSCOPY FOR ADHESIONS/APPENDECTOMY/CHOLECYSTECTOMY) Appendectomy: Yes Cholecystectomy: Yes Coronary Artery Bypass Graft: No Gynecologic Surgery: Yes (HYSTERECTOMY partial) Hysterectomy: Yes Tonsillectomy: Yes Other Surgery: Yes Social History Alcohol Use: Yes (RARELY) Tobacco Use: Yes (1 PPD) Substance Use: Yes Allergies-Medications (Allergen,Severity, Reaction): Coded Allergies: bee venom protein (honey bee) (Unverified Adverse Reaction, Severe, Anaphylaxis, 05/29/17) codeine (Unverified Adverse Reaction, Severe, ITCH, 05/29/17) Reported Meds & Prescriptions Reported Meds & Active Scripts Active Ultram (Tramadol HCl) 50 Mg Tab 100 Mg PO Q12HR PRN Plavix (Clopidogrel Bisulfate) 75 Mg Tab 75 Mg PO DAILY Norvasc (Amlodipine Besylate) 5 Mg Tab 5 Mg PO DAILY Metoprolol Succinate ER 24 HR (Metoprolol Succinate) 25 Mg Tab 25 Mg PO DAILY Protonix (Pantoprazole Sodium) 40 Mg Tab 40 Mg PO DAILY Gabapentin 600 Mg Tab 1,200 Mg PO BID Atorvastatin (Atorvastatin Calcium) 20 Mg Tab 20 Mg PO HS Reported Aspirin Low Dose (Aspirin) 81 Mg Chew 2 Tab CHEW DAILY Duloxetine DR (Duloxetine HCl) 60 Mg Capdr 60 Mg PO DAILY Ventolin Hfa 18 GM Inh (Albuterol Sulfate) 90 Mcg/Act Aer 2 Puff INH Q4-6H PRN Baclofen 10 Mg Tab 10 Mg PO BID Take with food or milk Buspirone (Buspirone HCl) 7.5 Mg Tab 7.5 Mg PO BID Glipizide XL (Glipizide) 10 Mg Glynn 10 Mg PO DAILY Take with breakfast or first main meal of the day Review of Systems General / Constitutional: Positive: Fever, Chills Eyes: No: Diploplia, Blurred Vision HENT: No: Headaches, Vertigo Cardiovascular: No: Chest Pain or Discomfort, Palpitations Respiratory: No: Cough, Shortness of Breath Gastrointestinal: Positive: Nausea, Vomiting, Diarrhea, Abdominal Pain Genitourinary: Positive: Decreased Urinary Output Musculoskeletal: No: Myalgias, Arthralgias Skin: No Rash Neurologic: Positive: Weakness Hematologic/Lymphatic: No: Easy Bruising Physical Exam Narrative GENERAL: Well-developed female SKIN: Focused skin assessment warm/dry. HEAD: Atraumatic. Normocephalic. EYES: Pupils equal and round. No scleral icterus. No injection or drainage. ENT: No nasal bleeding or discharge. Mucous membranes dry NECK: Trachea midline. No JVD. CARDIOVASCULAR: Regular rate and rhythm. No murmur appreciated. RESPIRATORY: No accessory muscle use. Clear to auscultation. Breath sounds equal bilaterally. GASTROINTESTINAL: Abdomen soft, there is some diffuse tenderness without guarding or rigidity MUSCULOSKELETAL: No obvious deformities. No clubbing. No cyanosis. No edema. NEUROLOGICAL: Awake and alert. No obvious cranial nerve deficits. Motor grossly within normal limits. Normal speech. PSYCHIATRIC: Appropriate mood and affect; insight and judgment normal. Data Data Last Documented VS Vital Signs Date Time Temp Pulse Resp B/P (MAP) Pulse Ox O2 Delivery O2 Flow Rate FiO2 05/29/17 19:12 20 05/29/17 19:12 97.6 89 106/58 (74) 100 Room Air Orders Orders Complete Blood Count With Diff (05/29/17 14:54) Comprehensive Metabolic Panel (05/29/17 14:54) Urinalysis - C+S If Indicated (05/29/17 14:54) Ct Abd/Pel W Iv Contrast(Rout) (05/29/17 14:54) Iv Access Insert/Monitor (05/29/17 14:54) Ecg Monitoring (05/29/17 14:54) Oximetry (05/29/17 14:54) Sodium Chloride 0.9% Flush (Ns Flush) (05/29/17 15:00) Sodium Chlor 0.9% 1000 Ml Inj (Ns 1000 M (05/29/17 15:00) Ondansetron Inj (Zofran Inj) (05/29/17 15:00) Hydromorphone Pf Inj (Dilaudid Pf Inj) (05/29/17 15:00) Sodium Chlor 0.9% 1000 Ml Inj (Ns 1000 M (05/29/17 15:45) Beta Hydroxybutyrate (Acetone) (05/29/17 15:46) Iohexol 350 Inj (Omnipaque 350 Inj) (05/29/17 16:08) Metronidazole 500 Mg Inj (Flagyl 500 Mg (05/29/17 16:15) Sodium Chlor 0.9% 250 Ml Inj (Ns 250 Ml (05/29/17 18:00) Insulin Human Regular Inj (Novolin R Inj (05/29/17 18:00) Arterial Blood Gas (Abg) (05/29/17 ) Ciprofloxacin 400 Mg Premix (Cipro 400 M (05/29/17 20:00) Metronidazole 500 Mg Inj (Flagyl 500 Mg (05/30/17 00:00) Bedside Glucose TYRA.CSUGAR (05/29/17 19:22) Blood Glucose Goal (Criteria) (05/29/17 19:22) Hypoglycemia 70 Mg/Dl Or < (05/29/17 19:22) Notify Dr: Other (05/29/17 19:22) Dextrose 50% In Bere (Vial) Inj (D50w (Vi (05/29/17 19:30) Glucagon Inj (Glucagon Inj) (05/29/17 19:30) Insulin Aspart Supplemtl Scale (Novolog (05/29/17 21:00) Admit To Inpatient (05/29/17 ) Vital Signs (Adult) Q4H (05/29/17 19:22) Activity Oob Ad Ly (05/29/17 19:22) Intake + Output TYRA.QSHIFT (05/29/17 19:22) Diet 1800 Ada Cons Carb (05/30/17 Breakfast) Sodium Chlor 0.9% 1000 Ml Inj (Ns 1000 M (05/29/17 19:22) Sodium Chloride 0.9% Flush (Ns Flush) (05/29/17 19:30) Sodium Chloride 0.9% Flush (Ns Flush) (05/29/17 21:00) Acetaminophen (Tylenol) (05/29/17 19:30) Comprehensive Metabolic Panel (05/30/17 06:00) Complete Blood Count With Diff (05/30/17 06:00) Scd Bilateral/Knee High TYRA.BID (05/29/17 19:22) Nazario Bilateral/Knee High TYRA.QSHIFT (05/29/17 19:26) Acetaminophen (Tylenol) (05/29/17 19:30) Morphine Inj (Morphine Inj) (05/29/17 19:30) Docusate Sodium-Senna ([place]-Colace) (05/29/17 21:00) Magnesium Hydroxide Liq (Milk Of Magnesi (05/29/17 19:30) Sennosides (Senokot) (05/29/17 19:30) Bisacodyl Supp (Dulcolax Supp) (05/29/17 19:30) Lactulose Liq (Lactulose Liq) (05/29/17 19:30) Inpatient Certification (05/29/17 ) Admit Order (Ed Use Only) (05/29/17 19:24) Labs Laboratory Tests Test 05/29/17 15:05 05/29/17 18:10 05/29/17 18:18 White Blood Count 19.6 TH/MM3 Red Blood Count 4.86 MIL/MM3 Hemoglobin 14.6 GM/DL Hematocrit 42.3 % Mean Corpuscular Volume 87.1 FL Mean Corpuscular Hemoglobin 30.1 PG Mean Corpuscular Hemoglobin Concent 34.5 % Red Cell Distribution Width 12.1 % Platelet Count 447 TH/MM3 Mean Platelet Volume 7.0 FL Neutrophils (%) (Auto) 81.9 % Lymphocytes (%) (Auto) 14.0 % Monocytes (%) (Auto) 3.5 % Eosinophils (%) (Auto) 0.0 % Basophils (%) (Auto) 0.6 % Neutrophils # (Auto) 16.1 TH/MM3 Lymphocytes # (Auto) 2.7 TH/MM3 Monocytes # (Auto) 0.7 TH/MM3 Eosinophils # (Auto) 0.0 TH/MM3 Basophils # (Auto) 0.1 TH/MM3 CBC Comment AUTO DIFF Differential Comment AUTO DIFF CONFIRMED Blood Urea Nitrogen 19 MG/DL Creatinine 0.81 MG/DL Random Glucose 282 MG/DL Total Protein 7.4 GM/DL Albumin 3.7 GM/DL Calcium Level 9.1 MG/DL Alkaline Phosphatase 81 U/L Aspartate Amino Transf (AST/SGOT) 13 U/L Alanine Aminotransferase (ALT/SGPT) 15 U/L Total Bilirubin 0.7 MG/DL Sodium Level 134 MEQ/L Potassium Level 3.5 MEQ/L Chloride Level 100 MEQ/L Carbon Dioxide Level 18.9 MEQ/L Anion Gap 15 MEQ/L Estimat Glomerular Filtration Rate 73 ML/MIN B-Hydroxybutyrate 3.59 MMOL/L Urine Color YELLOW Urine Turbidity CLEAR Urine pH 6.0 Urine Specific [place] GREATER THAN 1.035 Urine Protein NEG mg/dL Urine Glucose (UA) 500 mg/dL Urine Ketones 80 OR GREATER mg/dL Urine Occult Blood SMALL Urine Nitrite NEG Urine Bilirubin NEG Urine Leukocyte Esterase NEG Urine RBC 0-3 /hpf Urine WBC 0-2 /hpf Urine Squamous Epithelial Cells 6-8 /hpf Urine Bacteria RARE /hpf Urine Mucus OCC /lpf Microscopic Urinalysis Comment CULT NOT INDICATED Blood Gas Puncture Site RT RADIAL Blood Gas Patient Temperature 98.6 Blood Gas HCO3 19 mmol/L Blood Gas Base Excess -4.6 mmol/L Blood Gas Oxygen Saturation 92 % Arterial Blood pH 7.40 Arterial Blood Partial Pressure CO2 32 mmHG Arterial Blood Partial Pressure O2 79 mmHG Arterial Blood Oxygen Content 18.0 Vol % Arterial Blood Carboxyhemoglobin 1.6 % Arterial Blood Methemoglobin 1.1 % Blood Gas Hemoglobin 13.8 G/DL Oxygen Delivery Device ROOM AIR Blood Gas Inspired Oxygen 21 % [facility] Medical Decision Making Medical Screen Exam Complete: Yes Emergency Medical Condition: Yes Medical Record Reviewed: Yes Differential Diagnosis Differential includes gastroenteritis, bowel obstruction, Narrative Course Lab work is been ordered as well as a CT scan. IV fluids and pain medication have been given. Disposition will be determined by oncoming physician Diagnosis Primary Impression: Abdominal pain Obie Hurst MD May 29, 2017 14:59
[2017-05-29] MEDS ORDERED: HYDROmorphone HCL PF 1 MG/ML VIAL IV PUSH ONE (15:00)
[2017-05-29] MEDS ORDERED: SODIUM CHLORIDE 0.9% FLUSH 10 ML FLUSH IV FLUSH PRN ×2 (15:00→19:30)
[2017-05-29] MEDS ORDERED: SODIUM CHLOR 0.9% 1000 ML INJ 1,000 ML IV ONE ×2 (15:00→15:45)
[2017-05-29] MEDS ORDERED: ONDANSETRON HCL 4 MG/2 ML VIAL IV PUSH ONE (15:00)
[2017-05-29 15:20] LABS: AUTOMATED NEUTROPHIL # 16.1 TH/MM3 (1.8-7.7); BASOPHIL # 0.1 TH/MM3 (0-0.2); BASOPHIL % 0.6 % (0.0-2.0); HEMATOCRIT 42.3 % (35.0-46.0); LYMPHOCYTE # 2.7 TH/MM3 (1.0-4.8); MEAN CELL VOLUME 87.1 FL (80.0-100.0); MEAN CORPUSCULAR HEMOGLOBIN 30.1 PG (27.0-34.0); MEAN CORPUSCULAR HGB CONC 34.5 % (32.0-36.0); MONO % 3.5 % (0.0-8.0); NEUT % 81.9 % (16.0-70.0); PLATELET COUNT 447 TH/MM3 (150-450); RED BLOOD COUNT 4.86 MIL/MM3 (4.00-5.30); RED CELL DISTRIBUTION WIDTH 12.1 % (11.6-17.2); WHITE BLOOD COUNT 19.6 TH/MM3 (4.0-11.0)
[2017-05-29 15:27] LABS: CHLORIDE 100 MEQ/L (98-107); POTASSIUM 3.5 MEQ/L (3.5-5.1); SODIUM (NA) 134 MEQ/L (136-145)
[2017-05-29 15:29] LABS: HEMO FLAGS AUTO DIFF
[2017-05-29 15:32] LABS: ANION GAP 15 MEQ/L (5-15); BICARBONATE 18.9 MEQ/L (21.0-32.0); BLOOD UREA NITROGEN 19 MG/DL (7-18)
[2017-05-29 15:35] LABS: ALT (GPT) 15 U/L (10-53); AST (GOT) 13 U/L (15-37); GLOMERULAR FILTRATION RATE 73 ML/MIN (>89)
[2017-05-29 15:36] LABS: TOTAL BILIRUBIN ADULT 0.7 MG/DL (0.2-1.0)
[2017-05-29 15:38] LABS: ALKALINE PHOSPHATASE 81 U/L (45-117)
[2017-05-29 16:05] LABS: SCAN/DIFF AUTO DIFF CONFIRMED
[2017-05-29] MEDS ORDERED: IOHEXOL 350 MG/ML 10 ML VIAL (for RAD DIAG) IVCONTRAST ONE (16:08)
--- NOTE | 2017-05-29 16:09 | PD ---
Physical Exam Date Seen by Provider: May 29, 2017 Narrative GENERAL: SKIN: Warm and dry. HEAD: Atraumatic. Normocephalic. EYES: Pupils equal and round. No scleral icterus. No injection or drainage. ENT: No nasal bleeding or discharge. Mucous membranes pink and moist. NECK: Trachea midline. No JVD. CARDIOVASCULAR: Regular rate and rhythm. RESPIRATORY: No accessory muscle use. Clear to auscultation. Breath sounds equal bilaterally. GASTROINTESTINAL: Abdomen soft, non-tender, nondistended. mild ttp over right upper and mid quadrants, but without rebound/guarding or rigidity MUSCULOSKELETAL: Extremities without clubbing, cyanosis, or edema. No obvious deformities. NEUROLOGICAL: Awake and alert. No obvious cranial nerve deficits. Motor grossly within normal limits. Five out of 5 muscle strength in the arms and legs. Normal speech. PSYCHIATRIC: Appropriate mood and affect; insight and judgment normal. Data Data Last Documented VS Vital Signs Date Time Temp Pulse Resp B/P (MAP) Pulse Ox O2 Delivery O2 Flow Rate FiO2 05/29/17 16:20 83 14 113/60 (77) 97 Room Air 05/29/17 14:23 98.3 Orders Orders Complete Blood Count With Diff (05/29/17 14:54) Comprehensive Metabolic Panel (05/29/17 14:54) Urinalysis - C+S If Indicated (05/29/17 14:54) Ct Abd/Pel W Iv Contrast(Rout) (05/29/17 14:54) Iv Access Insert/Monitor (05/29/17 14:54) Ecg Monitoring (05/29/17 14:54) Oximetry (05/29/17 14:54) Sodium Chloride 0.9% Flush (Ns Flush) (05/29/17 15:00) Sodium Chlor 0.9% 1000 Ml Inj (Ns 1000 M (05/29/17 15:00) Ondansetron Inj (Zofran Inj) (05/29/17 15:00) Hydromorphone Pf Inj (Dilaudid Pf Inj) (05/29/17 15:00) Sodium Chlor 0.9% 1000 Ml Inj (Ns 1000 M (05/29/17 15:45) Beta Hydroxybutyrate (Acetone) (05/29/17 15:46) Iohexol 350 Inj (Omnipaque 350 Inj) (05/29/17 16:08) Metronidazole 500 Mg Inj (Flagyl 500 Mg (05/29/17 16:15) Sodium Chlor 0.9% 250 Ml Inj (Ns 250 Ml (05/29/17 18:00) Insulin Human Regular Inj (Novolin R Inj (05/29/17 18:00) Arterial Blood Gas (Abg) (05/29/17 ) Labs Laboratory Tests Test 05/29/17 15:05 05/29/17 18:10 05/29/17 18:18 White Blood Count 19.6 TH/MM3 Red Blood Count 4.86 MIL/MM3 Hemoglobin 14.6 GM/DL Hematocrit 42.3 % Mean Corpuscular Volume 87.1 FL Mean Corpuscular Hemoglobin 30.1 PG Mean Corpuscular Hemoglobin Concent 34.5 % Red Cell Distribution Width 12.1 % Platelet Count 447 TH/MM3 Mean Platelet Volume 7.0 FL Neutrophils (%) (Auto) 81.9 % Lymphocytes (%) (Auto) 14.0 % Monocytes (%) (Auto) 3.5 % Eosinophils (%) (Auto) 0.0 % Basophils (%) (Auto) 0.6 % Neutrophils # (Auto) 16.1 TH/MM3 Lymphocytes # (Auto) 2.7 TH/MM3 Monocytes # (Auto) 0.7 TH/MM3 Eosinophils # (Auto) 0.0 TH/MM3 Basophils # (Auto) 0.1 TH/MM3 CBC Comment AUTO DIFF Differential Comment AUTO DIFF CONFIRMED Blood Urea Nitrogen 19 MG/DL Creatinine 0.81 MG/DL Random Glucose 282 MG/DL Total Protein 7.4 GM/DL Albumin 3.7 GM/DL Calcium Level 9.1 MG/DL Alkaline Phosphatase 81 U/L Aspartate Amino Transf (AST/SGOT) 13 U/L Alanine Aminotransferase (ALT/SGPT) 15 U/L Total Bilirubin 0.7 MG/DL Sodium Level 134 MEQ/L Potassium Level 3.5 MEQ/L Chloride Level 100 MEQ/L Carbon Dioxide Level 18.9 MEQ/L Anion Gap 15 MEQ/L Estimat Glomerular Filtration Rate 73 ML/MIN B-Hydroxybutyrate 3.59 MMOL/L Urine Color YELLOW Urine Turbidity CLEAR Urine pH 6.0 Urine Specific [place] GREATER THAN 1.035 Urine Protein NEG mg/dL Urine Glucose (UA) 500 mg/dL Urine Ketones 80 OR GREATER mg/dL Urine Occult Blood SMALL Urine Nitrite NEG Urine Bilirubin NEG Urine Leukocyte Esterase NEG Urine RBC 0-3 /hpf Urine WBC 0-2 /hpf Urine Squamous Epithelial Cells 6-8 /hpf Urine Bacteria RARE /hpf Urine Mucus OCC /lpf Microscopic Urinalysis Comment CULT NOT INDICATED Blood Gas Puncture Site RT RADIAL Blood Gas Patient Temperature 98.6 Blood Gas HCO3 19 mmol/L Blood Gas Base Excess -4.6 mmol/L Blood Gas Oxygen Saturation 92 % Arterial Blood pH 7.40 Arterial Blood Partial Pressure CO2 32 mmHG Arterial Blood Partial Pressure O2 79 mmHG Arterial Blood Oxygen Content 18.0 Vol % Arterial Blood Carboxyhemoglobin 1.6 % Arterial Blood Methemoglobin 1.1 % Blood Gas Hemoglobin 13.8 G/DL Oxygen Delivery Device ROOM AIR Blood Gas Inspired Oxygen 21 % MDM Medical Record Reviewed: Yes Supervised Visit with KEANU: No Narrative Course signed out from dr foss pending ct results.....with 19k and 82% shift, i believe it prudent to at least give flagyl while awaiting ct scan. Critical Care Narrative CRITICAL CARE NOTE: With evaluation of the patient, labs, EKG, receipt of radiologic studies, administration of medications, reevaluation the patient and discussion of the patient with the admitting physicians, the total critical care time was [45] minutes. Time to perform other separately billable procedures was not included in the critical care time. Diagnosis Primary Impression: nonanion gap acidosis Additional Impression: leukocytosis and acidosis due to GI source Admitting Information Admitting Physician Requests: Billy Locke MD May 29, 2017 16:09
[2017-05-29] MEDS ORDERED: metroNIDAZOLE 500 MG INJ 100 ML IV ONE (16:15)
--- NOTE | 2017-05-29 16:21 | RADRPT ---
EXAM DATE/TIME: 05/29/2017 16:01 [facility] COMPARISON: CT ABDOMEN & PELVIS W CONTRAST, November 14, 2016, 19:31. INDICATIONS : Right lower quadrant pain. Nausea, vomiting and diarrhea. IV CONTRAST: 85 cc Omnipaque 350 (iohexol) IV ORAL CONTRAST: No oral contrast ingested. RADIATION DOSE: 10.52 CTDIvol (mGy) MEDICAL HISTORY : Diabetes mellitus type 2. Chronic obstructive pulmonary disease. Cerebrovascular disease.Myocardial i nfarction. Hypertension. SURGICAL HISTORY : Appendectomy. Cholecystectomy.Hysterectomy. ENCOUNTER: Initial ACUITY: 2 days PAIN SCALE: 4/10 LOCATION: Right lower quadrant TECHNIQUE: Volumetric scanning of the abdomen and pelvis was performed. Using automated exposure control and ad justment of the mA and/or kV according to patient size, radiation dose was kept as low as reasonably achievable to obtain optimal diagnostic quality images. DICOM format image data is available electro nically for review and comparison. FINDINGS: LOWER LUNGS: The visualized lower lungs are clear. LIVER: Homogeneous density without lesion. There is no dilation of the biliary tree. Surgical clips gallbl adder fossa. SPLEEN: Normal size without lesion. PANCREAS: Within normal limits. KIDNEYS: Normal in size and shape. There is no mass, stone or hydronephrosis. ADRENAL GLANDS: Within normal limits. VASCULAR: Minimal calcifications are present with some soft plaque. There is no dilatation. BOWEL/MESENTERY: The stomach, small bowel, and colon demonstrate no acute abnormality. There is no free intraperitone al air or fluid. ABDOMINAL WALL: Within normal limits. RETROPERITONEUM: There is no lymphadenopathy. BLADDER: No wall thickening or mass. REPRODUCTIVE: Within normal limits. INGUINAL: There is no lymphadenopathy or hernia. MUSCULOSKELETAL: Within normal limits for patient age. CONCLUSION: I do not see an etiology for patient's abdominal pain. Gallbladder surgical absent. Inflammatory ch anges are not visualized. Tyler Braxton MD FACR on May 29, 2017 at 16:17 Board Certified Radiologist. This report was verified electronically.
[2017-05-29] MEDS ORDERED: SODIUM CHLOR 0.9% 250 ML INJ 250 ML IV ONE (18:00)
[2017-05-29] MEDS ORDERED: INSULIN HUMAN REGULAR 1,000 UNITS/10 ML VIAL SQ ONE (18:00)
[2017-05-29 18:23] LABS: BLOOD GAS BASE EXCESS -4.6 mmol/L (-2-2); BLOOD GAS CARBOXYHEMOGLOBIN 1.6 % (0-4); BLOOD GAS HCO3 19 mmol/L (22-26); BLOOD GAS METHEMOGLOBIN 1.1 % (0-2); BLOOD GAS O2 HGB SATURATION 92 % (90-100); BLOOD GAS PCO2 32 mmHG (38-42); BLOOD GAS PO2 79 mmHG (61-120); BLOOD GAS TOTAL HGB 13.8 G/DL (12.0-16.0); TEMP CORR TO 98.6
[2017-05-29 18:24] LABS: CRITICAL VALUE NO; DRAW SITE RT RADIAL; FIO2 21 %; NUMBER OF ARTERIAL PUNCTURES 1; OXYGEN DEVICE ROOM AIR; STAT YES; ULNAR PULSE PRESENT
[2017-05-29 18:42] LABS: BLOOD, URINE SMALL (NEG); GLUCOSE,URINE 500 mg/dL (NEG); KETONE, URINE 80 OR GREATER mg/dL (NEG); NITRITE,URINE NEG (NEG)
[2017-05-29 18:48] LABS: URINE COLOR YELLOW (YELLW/STRAW)
[2017-05-29 18:49] LABS: BACTERIA, URINE RARE /hpf; COMMENT (UR) CULT NOT INDICATED; CULTURE IF INDICATED CULT NOT INDICATED; MUCUS URINE OCC /lpf (OCC); RBC, URINE 0-3 /hpf (0-3); WBC, URINE 0-2 /hpf (0-5)
[2017-05-29] MEDS ORDERED: DEXTROSE 50% IN WATER 50 ML VIAL(D50) IV PRN (19:30)
[2017-05-29] MEDS ORDERED: LACTULOSE SYRUP 20 GM/30 ML CUP PO PRN (19:30)
[2017-05-29] MEDS ORDERED: SENNOSIDES 8.6 MG TAB PO PRN (19:30)
[2017-05-29] MEDS ORDERED: MAGNESIUM HYDROXIDE SUSP 30 ML CUP PO PRN (19:30)
[2017-05-29] MEDS ORDERED: ACETAMINOPHEN 325 MG TAB PO PRN ×2 (19:30)
[2017-05-29] MEDS ORDERED: BISACODYL 10 MG SUPP RECTAL PRN (19:30)
[2017-05-29] MEDS ORDERED: GLUCAGON 1 MG/ML VIAL OTHER PRN (19:30)
[2017-05-29] MEDS: SODIUM CHLOR 0.9% 1000 ML INJ 1,000 ML IV SCH (19:42)
[2017-05-29] MEDS: CIPROFLOXACIN 400 MG PREMIX 200 ML IV SCH (19:43)
[2017-05-29] MEDS: DOCUSATE SODIUM 50 MG/SENNA 8.6 MG TAB PO SCH (21:00)
[2017-05-29] MEDS: INSULIN ASPART SUPPLEMENTAL SCALE SQ SCH (21:00)
[2017-05-29] MEDS: ONDANSETRON HCL 4 MG/2 ML VIAL IV PUSH PRN (22:33)
[2017-05-29] MEDS: SODIUM CHLORIDE 0.9% FLUSH 10 ML FLUSH IV FLUSH SCH (22:34)
[2017-05-30] VITALS (15 sets, daily range): BP systolic 110–177; BP diastolic 54–88; PULSE 70–104; RESP 8–61; TEMP 98.5–100.1; O2SAT 94–96
[2017-05-30] MEDS: metroNIDAZOLE 500 MG INJ 100 ML IV SCH ×2 (00:04→08:53)
[2017-05-30] MEDS ORDERED: busPIRone HCL 10 MG TAB PO ONE (04:15)
[2017-05-30] MEDS: ONDANSETRON HCL 4 MG/2 ML VIAL IV PUSH PRN ×2 (04:15→19:57)
[2017-05-30] MEDS: SODIUM CHLOR 0.9% 1000 ML INJ 1,000 ML IV SCH ×5 (05:09→16:09)
[2017-05-30] MEDS: MORPHINE SULFATE 4 MG/ML INJ IV PUSH PRN ×2 (05:14→19:58)
[2017-05-30 05:58] LABS: AUTOMATED NEUTROPHIL # 14.4 TH/MM3 (1.8-7.7); BASOPHIL # 0.1 TH/MM3 (0-0.2); BASOPHIL % 0.4 % (0.0-2.0); EOSINOPHIL # 0.1 TH/MM3 (0-0.4); EOSINOPHIL % 0.4 % (0.0-4.0); HEMATOCRIT 39.4 % (35.0-46.0); HEMO FLAGS DIFF FINAL; LYMPHOCYTE # 3.6 TH/MM3 (1.0-4.8); MEAN CELL VOLUME 87.8 FL (80.0-100.0); MEAN CORPUSCULAR HEMOGLOBIN 30.1 PG (27.0-34.0); MEAN CORPUSCULAR HGB CONC 34.3 % (32.0-36.0); MONO % 3.9 % (0.0-8.0); NEUT % 76.3 % (16.0-70.0); PLATELET COUNT 421 TH/MM3 (150-450); RED BLOOD COUNT 4.49 MIL/MM3 (4.00-5.30); RED CELL DISTRIBUTION WIDTH 11.9 % (11.6-17.2); WHITE BLOOD COUNT 18.9 TH/MM3 (4.0-11.0)
[2017-05-30] MEDS ORDERED: MORPHINE SULFATE 4 MG/ML INJ IV PUSH ONE (06:00)
[2017-05-30 06:12] LABS: CHLORIDE 107 MEQ/L (98-107); POTASSIUM 3.2 MEQ/L (3.5-5.1); SODIUM (NA) 137 MEQ/L (136-145)
[2017-05-30 06:16] LABS: ANION GAP 16 MEQ/L (5-15); BICARBONATE 14.4 MEQ/L (21.0-32.0)
[2017-05-30 06:51] LABS: ALKALINE PHOSPHATASE 69 U/L (45-117); ALT (GPT) 15 U/L (10-53); AST (GOT) 17 U/L (15-37); BLOOD UREA NITROGEN 14 MG/DL (7-18); GLOMERULAR FILTRATION RATE 99 ML/MIN (>89); TOTAL BILIRUBIN ADULT 0.6 MG/DL (0.2-1.0)
[2017-05-30] MEDS: CIPROFLOXACIN 400 MG PREMIX 200 ML IV SCH (08:53)
[2017-05-30] MEDS: INSULIN ASPART SUPPLEMENTAL SCALE SQ SCH ×3 (08:53→20:19)
[2017-05-30] MEDS: DOCUSATE SODIUM 50 MG/SENNA 8.6 MG TAB PO SCH ×2 (08:54→19:58)
[2017-05-30] MEDS: SODIUM CHLORIDE 0.9% FLUSH 10 ML FLUSH IV FLUSH SCH ×2 (08:54→20:00)
[2017-05-30] MEDS ORDERED: DEXT 5%-NACL 0.9% 1000 ML INJ 1,000 ML IV SCH (12:09)
[2017-05-30] MEDS ORDERED: SODIUM BICARBONATE 8.4% SOLN 50 MEQ/50 ML VIAL IV PRN ×2 (12:15)
[2017-05-30] MEDS ORDERED: INSULIN HUMAN REGULAR 1,000 UNITS/10 ML VIAL IV PUSH ONE (12:15)
[2017-05-30] MEDS ORDERED: POTASSIUM CHLOR 20 MEQ PREMIX 100 ML IV PRN ×6 (12:15)
[2017-05-30] MEDS ORDERED: POTASSIUM CHLOR 40 MEQ PREMIX 100 ML IV PRN ×2 (12:15)
[2017-05-30] MEDS ORDERED: CHLORHEXIDINE GLUCONATE 2 % 1 PACK (2 CLOTHS) TOP PRN (12:15)
[2017-05-30] MEDS ORDERED: POTASSIUM CHLORIDE 10 MEQ CONTROLLED RELEASE TAB PO ONE (12:15)
[2017-05-30] MEDS ORDERED: MISCELLANEOUS NURSING INFORMATION XX SCH (12:15)
[2017-05-30] MEDS ORDERED: INSULIN REGULAR (IV INFUSION) 100 UNITS in SODIUM CHLORIDE 0.9% INJ 99 ML IV SCH (12:15)
[2017-05-30] MEDS ORDERED: SODIUM PHOSPHATE INJ 15 MMOL in SODIUM CHLORIDE 0.9% INJ 100 ML IV PRN (12:15)
--- NOTE | 2017-05-30 12:30 | HHI.HP ---
HPI Service [facility] Hospitalists Primary Care Physician No Primary Care Physician Admission Diagnosis ENTERITIS, NONANION GAP ACIDOSIS, KETONURIA Diagnoses: Chief Complaint: Abdominal pain Travel History International Travel<30 Days: No Contact w/Intl Traveler <30 Da: No Traveled to Known Affected Are: No Sepsis Criteria SIRS Criteria (2 or more): RR > 20 or PaCO2 < 32, WBC > 84125, < 4000 or > 10 % bands Sepsis Criteria (SIRS+source): Infect source susp/known Criteria Outcome: Meets sepsis criteria History of Present Illness This is a 49-year-old female with past medical history of diabetes, hypertension hyperlipidemia, CAD who presents to [facility] complaining of diffuse abdominal pain associated with persistent vomiting, nausea and low-grade fever with a MAXIMUM TEMPERATURE of 100.6 this past 05/28. The patient states abdominal pain is constant severe now 03/23, nonradiating. The patient denies any alleviating or aggravating factors, The patient states that she has not been compliant with her oral antidiabetic medications. The patient states that she was taking glipizide in the past. The patient also complains of cough with productive sputum however denies chance of breath or chest pain. The patient also denied dysuria. The patient states she feels nauseous at the moment of this interview. Review of Systems As per history of present illness, other systems reviewed by me and negative. Past Family Social History Past Medical History 1. Diabetes. 2. Hypertension. 3. Hyperlipidemia. 4. CAD Past Surgical History 1. Hysterectomy. 2. Cholecystectomy. 3. Appendectomy. 4. Tonsillectomy. Reported Medications Reported Meds & Active Scripts Active Ultram (Tramadol HCl) 50 Mg Tab 100 Mg PO Q12HR PRN Plavix (Clopidogrel Bisulfate) 75 Mg Tab 75 Mg PO DAILY Norvasc (Amlodipine Besylate) 5 Mg Tab 5 Mg PO DAILY Metoprolol Succinate ER 24 HR (Metoprolol Succinate) 25 Mg Tab 25 Mg PO DAILY Protonix (Pantoprazole Sodium) 40 Mg Tab 40 Mg PO DAILY Gabapentin 600 Mg Tab 1,200 Mg PO BID Atorvastatin (Atorvastatin Calcium) 20 Mg Tab 20 Mg PO HS Reported Aspirin Low Dose (Aspirin) 81 Mg Chew 2 Tab CHEW DAILY Duloxetine DR (Duloxetine HCl) 60 Mg Capdr 60 Mg PO DAILY Ventolin Hfa 18 GM Inh (Albuterol Sulfate) 90 Mcg/Act Aer 2 Puff INH Q4-6H PRN Baclofen 10 Mg Tab 10 Mg PO BID Take with food or milk Buspirone (Buspirone HCl) 7.5 Mg Tab 7.5 Mg PO BID Glipizide XL (Glipizide) 10 Mg Glynn 10 Mg PO DAILY Take with breakfast or first main meal of the day Allergies: Coded Allergies: bee venom protein (honey bee) (Unverified Adverse Reaction, Severe, Anaphylaxis, 05/29/17) codeine (Unverified Adverse Reaction, Severe, ITCH, 05/29/17) Active Ordered Medications Current Medications Medications (Trade) Dose Ordered Sig/Raul Route Start Time Stop Time Status Last Admin Metronidazole 100 ml @ 100 mls/hr Q8H IV 05/30/17 00:00 05/30/17 08:53 (D50w (Vial) Inj) 50 ml UNSCH PRN IV 05/29/17 19:30 (Glucagon Inj) 1 mg UNSCH PRN OTHER 05/29/17 19:30 (NovoLOG SUPPLEMENTAL SCALE) 1 ACHS SLIDING SCALE SQ 05/29/17 21:00 05/30/17 08:53 Sodium Chloride 1,000 ml @ 100 mls/hr Q10H IV 05/29/17 19:22 05/30/17 05:15 (NS Flush) 2 ml UNSCH PRN IV FLUSH 05/29/17 19:30 (NS Flush) 2 ml BID IV FLUSH 05/29/17 21:00 05/30/17 08:54 (Tylenol) 650 mg Q4H PRN PO 05/29/17 19:30 (Tylenol) 650 mg Q6H PRN PO 05/29/17 19:30 (Morphine Inj) 2 mg Q3H PRN IV PUSH 05/29/17 19:30 05/30/17 05:14 ([place]-Colace) 1 tab BID PO 05/29/17 21:00 (Milk Of Magnesia Liq) 30 ml Q12H PRN PO 05/29/17 19:30 (Senokot) 17.2 mg Q12H PRN PO 05/29/17 19:30 (Dulcolax Supp) 10 mg DAILY PRN RECTAL 05/29/17 19:30 (Lactulose Liq) 30 ml DAILY PRN PO 05/29/17 19:30 (Zofran Inj) 4 mg Q6HR PRN IV PUSH 05/29/17 22:15 05/30/17 04:15 Sodium Chloride 1,000 ml @ 250 mls/hr Q4H IV 05/30/17 12:09 Dextrose/Sodium Chloride 1,000 ml @ 200 mls/hr Q5H IV 05/30/17 12:09 05/30/17 12:09 Insulin Human Regular 100 units/ Sodium Chloride 100 ml @ 7.4 mls/hr TITRATE IV 05/30/17 12:15 Potassium Chloride 100 ml @ 100 mls/hr Q1H PRN IV 05/30/17 12:15 Potassium Chloride 100 ml @ 50 mls/hr Q2H PRN IV 05/30/17 12:15 Potassium Chloride 100 ml @ 100 mls/hr Q1H PRN IV 05/30/17 12:15 Potassium Chloride 100 ml @ 100 mls/hr Q1H PRN IV 05/30/17 12:15 Potassium Chloride 100 ml @ 50 mls/hr Q2H PRN IV 05/30/17 12:15 Potassium Chloride 100 ml @ 50 mls/hr Q2H PRN IV 05/30/17 12:15 Potassium Chloride 100 ml @ 50 mls/hr Q2H PRN IV 05/30/17 12:15 Potassium Chloride 100 ml @ 50 mls/hr Q2H PRN IV 05/30/17 12:15 (Sodium Bicarbonate 8.4% Inj) 100 meq UNSCH PRN IV 05/30/17 12:15 (Sodium Bicarbonate 8.4% Inj) 50 meq UNSCH PRN IV 05/30/17 12:15 Sodium Phosphate 15 mmol/Sodium Chloride 105 ml @ 25 mls/hr UNSCH PRN IV 05/30/17 12:15 Miscellaneous Information 1 Q361D XX 05/30/17 12:15 05/30/17 12:15 (Chlorhexidine 2% Cloth) 3 pack Taper DAILY@04 TOP 05/31/17 04:00 05/27/18 03:59 (Chlorhexidine 2% Cloth) 3 pack UNSCH PRN TOP 05/30/17 12:15 Levofloxacin/ Dextrose 150 ml @ 100 mls/hr Q24H IV 05/30/17 14:00 05/30/17 14:00 Sodium Chloride 1,000 ml @ 250 mls/hr Q4H IV 05/30/17 14:15 Dextrose/Sodium Chloride 1,000 ml @ 200 mls/hr Q5H IV 05/30/17 14:15 ([facility] Information) Mix all IV Medications in Nor... UNSCH .XX 05/30/17 14:15 Potassium Chloride 100 ml @ 100 mls/hr Q1H PRN IV 05/30/17 14:15 Potassium Chloride 100 ml @ 50 mls/hr Q2H PRN IV 05/30/17 14:15 Potassium Chloride 100 ml @ 100 mls/hr Q1H PRN IV 05/30/17 14:15 Potassium Chloride 100 ml @ 100 mls/hr Q1H PRN IV 05/30/17 14:15 Potassium Chloride 100 ml @ 50 mls/hr Q2H PRN IV 05/30/17 14:15 Potassium Chloride 100 ml @ 50 mls/hr Q2H PRN IV 05/30/17 14:15 Potassium Chloride 100 ml @ 50 mls/hr Q2H PRN IV 05/30/17 14:15 Potassium Chloride 100 ml @ 50 mls/hr Q2H PRN IV 05/30/17 14:15 Insulin Human Regular 100 units/ Sodium Chloride 100 ml @ 0 mls/hr TITRATE IV 05/30/17 14:15 (D50w (Vial) Inj) 50 ml Q10M PRN IV PUSH 05/30/17 14:15 (Sodium Bicarbonate 8.4% Inj) 100 meq STAT PRN IV 05/30/17 14:15 (Sodium Bicarbonate 8.4% Inj) 50 meq STAT PRN IV 05/30/17 14:15 Sodium Phosphate 15 mmol/Sodium Chloride 105 ml @ 25 mls/hr UNSCH PRN IV 05/30/17 14:15 Family History The patient is adopted, so she doesn't know her family history. Social History The patient denies alcohol use. The patient states that she smokes one pack per day. The patient is single and states that she is planning to her girlfriend after she gets better from a current illness. Physical Exam Vital Signs Vital Signs Date Time Temp Pulse Resp B/P (MAP) Pulse Ox O2 Delivery O2 Flow Rate FiO2 05/30/17 10:00 84 30 05/30/17 09:00 86 27 05/30/17 08:35 98.5 104 22 177/88 (117) 05/30/17 08:00 78 25 05/30/17 08:00 77 05/30/17 07:00 70 24 05/30/17 04:00 98.7 70 20 136/68 (90) 95 05/30/17 04:00 70 05/30/17 00:00 82 05/30/17 00:00 99.0 82 21 119/66 (83) 96 05/29/17 22:00 98.6 66 21 105/62 (76) 94 05/29/17 21:18 66 05/29/17 20:52 97.6 79 15 104/56 (72) 96 05/29/17 19:12 20 05/29/17 19:12 97.6 89 20 106/58 (74) 100 Room Air 05/29/17 16:20 83 14 113/60 (77) 97 Room Air 05/29/17 15:40 18 05/29/17 15:10 99 Room Air 05/29/17 14:23 98.3 99 20 113/64 (80) 99 Physical Exam GENERAL: This is a well-nourished, well-developed patient, moderate distress due to abdominal pain and nausea. SKIN: No rashes, ecchymoses or lesions. Warm and dry. HEAD: Atraumatic. Normocephalic. No temporal or scalp tenderness. EYES: Pupils equal round and reactive. Extraocular motions intact. No scleral icterus. No injection or drainage. ENT: Nose without bleeding, purulent drainage or septal hematoma. Throat without erythema, tonsillar hypertrophy or exudate. Uvula midline. Airway patent. NECK: Trachea midline. No JVD or lymphadenopathy. Supple, nontender, no meningeal signs. CARDIOVASCULAR: Regular rate and rhythm without murmurs, gallops, or rubs. RESPIRATORY: Clear to auscultation. Breath sounds equal bilaterally. No wheezes , rales, or rhonchi. GASTROINTESTINAL: Abdomen soft, diffusely tender to palpation, nondistended. No hepato-splenomegaly, or palpable masses. No guarding. MUSCULOSKELETAL: Extremities without clubbing, cyanosis, or edema. No joint tenderness, effusion, or edema noted. No calf tenderness. Negative Homans sign bilaterally. NEUROLOGICAL: Awake and alert. Cranial nerves II through XII intact. Motor and sensory grossly within normal limits. Five out of 5 muscle strength in all muscle groups. Normal speech. Laboratory Laboratory Tests Test 05/29/17 15:05 05/29/17 18:10 05/29/17 18:18 05/30/17 05:41 White Blood Count 19.6 18.9 Red Blood Count 4.86 4.49 Hemoglobin 14.6 13.5 Hematocrit 42.3 39.4 Mean Corpuscular Volume 87.1 87.8 Mean Corpuscular Hemoglobin 30.1 30.1 Mean Corpuscular Hemoglobin Concent 34.5 34.3 Red Cell Distribution Width 12.1 11.9 Platelet Count 447 421 Mean Platelet Volume 7.0 7.0 Neutrophils (%) (Auto) 81.9 76.3 Lymphocytes (%) (Auto) 14.0 19.0 Monocytes (%) (Auto) 3.5 3.9 Eosinophils (%) (Auto) 0.0 0.4 Basophils (%) (Auto) 0.6 0.4 Neutrophils # (Auto) 16.1 14.4 Lymphocytes # (Auto) 2.7 3.6 Monocytes # (Auto) 0.7 0.7 Eosinophils # (Auto) 0.0 0.1 Basophils # (Auto) 0.1 0.1 CBC Comment AUTO DIFF DIFF FINAL Differential Comment AUTO DIFF CONFIRMED Blood Urea Nitrogen 19 14 Creatinine 0.81 0.62 Random Glucose 282 180 Total Protein 7.4 6.7 Albumin 3.7 3.4 Calcium Level 9.1 8.3 Alkaline Phosphatase 81 69 Aspartate Amino Transf (AST/SGOT) 13 17 Alanine Aminotransferase (ALT/SGPT) 15 15 Total Bilirubin 0.7 0.6 Sodium Level 134 137 Potassium Level 3.5 3.2 Chloride Level 100 107 Carbon Dioxide Level 18.9 14.4 Anion Gap 15 16 Estimat Glomerular Filtration Rate 73 99 B-Hydroxybutyrate 3.59 Urine Color YELLOW Urine Turbidity CLEAR Urine pH 6.0 Urine Specific [place] GREATER THAN 1.035 Urine Protein NEG Urine Glucose (UA) 500 Urine Ketones 80 OR GREATER Urine Occult Blood SMALL Urine Nitrite NEG Urine Bilirubin NEG Urine Leukocyte Esterase NEG Urine RBC 0-3 Urine WBC 0-2 Urine Squamous Epithelial Cells 6-8 Urine Bacteria RARE Urine Mucus OCC Microscopic Urinalysis Comment CULT NOT INDICATED Blood Gas Puncture Site RT RADIAL Blood Gas Patient Temperature 98.6 Blood Gas HCO3 19 Blood Gas Base Excess -4.6 Blood Gas Oxygen Saturation 92 Arterial Blood pH 7.40 Arterial Blood Partial Pressure CO2 32 Arterial Blood Partial Pressure O2 79 Arterial Blood Oxygen Content 18.0 Arterial Blood Carboxyhemoglobin 1.6 Arterial Blood Methemoglobin 1.1 Blood Gas Hemoglobin 13.8 Oxygen Delivery Device ROOM AIR Blood Gas Inspired Oxygen 21 Result Diagram: 05/30/17 0541 05/30/17 0541 Imaging Last Impressions Abdomen/Pelvis CT 05/29/17 1454 Signed Impressions: Service Date/Time: Monday, May 29, 2017 16:01 - CONCLUSION: I do not see an etiology for patient's abdominal pain. Gallbladder surgical absent. Inflammatory changes are not visualized. Tyler Braxton MD FACR Septic Shock Reassessment Heart: Regular rate and rhythm Lungs: Clear Skin: Warm Peripheral Pulses: Bounding Right Radial Bounding Left Radial Caprini VTE Risk Assessment Caprini VTE Risk Assessment: No/Low Risk (score <= 1) Caprini Risk Assessment Model Point Value = 1 Point Value = 2 Point Value = 3 Point Value = 5 Age 41-60 Minor surgery BMI > 25 kg/m2 Swollen legs Varicose veins or History of unexplained or recurrent spontaneous Oral contraceptives or hormone replacement Sepsis (< 1 month) Serious lung disease, including pneumonia (< 1 month) Abnormal pulmonary function Acute myocardial infarction Congestive heart failure (< 1 month) History of inflammatory bowel disease Medical patient at bed rest Age 61-74 Arthroscopic surgery Major open surgery (> 45 min) Laparoscopic surgery (> 45 min) Malignancy Confined to bed (> 72 hours) Immobilizing plaster cast Central venous access Age >= 75 History of VTE Family history of VTE Factor V Leiden Prothrombin [id number] Lupus anticoagulant Anticardiolipin antibodies Elevated serum homocysteine Heparin-induced thrombocytopenia Other congenital or acquired thrombophilia Stroke (< 1 month) Elective arthroplasty Hip, pelvis, or leg fracture Acute spinal cord injury (< 1 month) Prophylaxis Regimen Total Risk Factor Score Risk Level Prophylaxis Regimen 0-1 Low Early ambulation 2 Moderate Order ONE of the following: *Sequential Compression Device (SCD) *Heparin 5000 units SQ BID 3-4 Higher Order ONE of the following medications: *Heparin 5000 units SQ TID *Enoxaparin/Lovenox 40 mg SQ daily (WT < 150 kg, CrCl > 30 mL/min) *Enoxaparin/Lovenox 30 mg SQ daily (WT < 150 kg, CrCl > 10-29 mL/min) *Enoxaparin/Lovenox 30 mg SQ BID (WT < 150 kg, CrCl > 30 mL/min) AND/OR *Sequential Compression Device (SCD) 5 or more Highest Order ONE of the following medications: *Heparin 5000 units SQ TID (Preferred with Epidurals) *Enoxaparin/Lovenox 40 mg SQ daily (WT < 150 kg, CrCl > 30 mL/min) *Enoxaparin/Lovenox 30 mg SQ daily (WT < 150 kg, CrCl > 10-29 mL/min) *Enoxaparin/Lovenox 30 mg SQ BID (WT < 150 kg, CrCl > 30 mL/min) AND *Sequential Compression Device (SCD) Assessment and Plan Problem List: (1) Sepsis ICD Code: A41.9 - Sepsis, unspecified organism (2) DKA (diabetic ketoacidoses) ICD Code: E13.10 - Other specified diabetes mellitus with ketoacidosis without coma (3) Gastroenteritis ICD Code: K52.9 - Noninfective gastroenteritis and colitis, unspecified Status: Acute (4) Bipolar disorder, current episode manic without psychotic features ICD Code: F31.10 - Bipolar disorder, current episode manic without psychotic features Status: Acute (5) Abdominal pain ICD Code: R10.9 - Unspecified abdominal pain (6) CAD (coronary artery disease) ICD Code: I25.10 - Atherosclerotic heart disease of [place] coronary artery without angina pectoris Assessment and Plan Sepsis likely secondary to gastroenteritis and DKA. Admit the patient to intensive care unit I will place the patient on the DKA protocol with IV insulin and IV fluids as well as electrolyte replacements IV fluids as per the DKA protocol Monitor white blood cell for leukocytosis Morphine sulfate IV for pain control. Replace potassium as needed as per DKA protocol Keep nothing by mouth for now Will transition to 16 is insulin once anion gap doses Monitor beta hydroxybutyrate Continue medications for bipolar disorder Hold antihypertensive medications Physician Certification 2 Midnight Certification Type: Admission for Inpatient Services Order for Inpatient Services The services are ordered in accordance with Medicare regulations or non- Medicare payer requirements, as applicable. In the case of services not specified as inpatient-only, they are appropriately provided as inpatient services in accordance with the 2-midnight benchmark. Estimated LOS (days): 2 days is the estimated time the patient will need to remain in the hospital, assuming treatment plan goals are met and no additional complications. Post-Hospital Plan: Not yet determined Simon Osuna MD May 30, 2017 12:30
[2017-05-30 12:44] LABS: BLOOD GAS PCO2 28 mmHg (38-42)
[2017-05-30 12:45] LABS: BLOOD GAS CARBOXYHEMOGLOBIN 1.3 % (0-4); BLOOD GAS HCO3 19 mmol/L (22-26); BLOOD GAS METHEMOGLOBIN 1.2 % (0-2); BLOOD GAS O2 HGB SATURATION 95 % (90-100); BLOOD GAS OXYGEN CONTENT 17.6 Vol % (12.0-20.0); BLOOD GAS PO2 83 mmHg (61-120); BLOOD GAS TOTAL HGB 13.2 G/DL (12.0-16.0); CRITICAL VALUE NO; DRAW SITE LT RADIAL; FIO2 21 %; NUMBER OF ARTERIAL PUNCTURES 1; STAT NO; ULNAR PULSE PRESENT
--- NOTE | 2017-05-30 12:51 | RADRPT ---
EXAM DATE/TIME: 05/30/2017 12:43 [facility] COMPARISON: CHEST SINGLE AP, December 09, 2016, 16:11. INDICATIONS : Cough, tachypnea MEDICAL HISTORY : Myocardial infarction. SURGICAL HISTORY : None. ENCOUNTER: Subsequent ACUITY: 2 days PAIN SCORE: 0/10 LOCATION: Bilateral chest FINDINGS: A single view of the chest demonstrates the lungs to be symmetrically aerated without evidence of mas s, infiltrate or effusion. The cardiomediastinal contours are unremarkable. Osseous structures are intact. CONCLUSION: 1. No acute cardiopulmonary disease. Iban Miguel MD on May 30, 2017 at 12:49 Board Certified Radiologist. This report was verified electronically.
[2017-05-30] MEDS: LEVOFLOXACIN 750 MG PREMIX INJ 150 ML IV SCH (14:00)
[2017-05-30] MEDS ORDERED: Mix all IV Medications in Normal Saline When Possible SCH (14:15)
[2017-05-30] MEDS ORDERED: SODIUM BICARBONATE 8.4% 100 MEQ IV PRN (14:15)
[2017-05-30] MEDS ORDERED: SODIUM BICARBONATE 8.4% 50 MEQ IV PRN (14:15)
[2017-05-30] MEDS ORDERED: INSULIN REGULAR 100 UNITS/NS 100 ML (DKA Protocol) IV SCH ×2 (14:15)
[2017-05-30] MEDS ORDERED: Discontinue All Previous Diabetic Medications ONE (14:15)
[2017-05-30] MEDS ORDERED: DEXTROSE 50% IN WATER 50 ML VIAL(D50) IV PUSH PRN (14:15)
[2017-05-30] MEDS ORDERED: POTASSIUM CL 20 MEQ IV PREMIX 100 ML - CENTRAL LINE - for K+ 4.5 to 5 IV PRN (14:15)
[2017-05-30] MEDS ORDERED: POTASSIUM CL 20 MEQ IV PREMIX 100 ML - CENTRAL LINE - for K+ 3.5 to 4.4 IV PRN (14:15)
[2017-05-30] MEDS ORDERED: INSULIN HUMAN (NovoLIN) REGULAR Bolus IV PUSH ONE (14:15)
[2017-05-30] MEDS ORDERED: POTASSIUM CL 20 MEQ IV PREMIX 100 ML - PERIPHERAL - for K+ 4.5 to 5 IV PRN (14:15)
[2017-05-30] MEDS ORDERED: POTASSIUM CL 40 MEQ IV PREMIX 100 ML - CENTRAL LINE - for K+ < 3.5 IV PRN (14:15)
[2017-05-30] MEDS ORDERED: POTASSIUM CL 40 MEQ IV PREMIX 100 ML - CENTRAL LINE - SUBSEQUENT K+ < 3.5 IV PRN (14:15)
[2017-05-30] MEDS ORDERED: POTASSIUM CL 20 MEQ IV PREMIX 100 ML - PERIPHERAL LINE - for K+ < 3.5 IV PRN (14:15)
[2017-05-30] MEDS ORDERED: D5 NS IV @ 200 MLS/HR - Start after Glucose less than 250 IV SCH (14:15)
[2017-05-30] MEDS ORDERED: POTASSIUM CL 20 MEQ IV PREMIX 100 ML - PERIPHERAL - SUBSEQUENT K+ < 3.5 IV PRN (14:15)
[2017-05-30] MEDS ORDERED: NS IV @ 250 MLS/HR IV SCH (14:15)
[2017-05-30] MEDS ORDERED: POTASSIUM CL 20 MEQ IV PREMIX 100 ML - PERIPHERAL - for K+ 3.5 to 4.4 IV PRN (14:15)
[2017-05-30] MEDS ORDERED: SODIUM PHOSPHATE 15 MMOL/NS 100 ML IV PRN ×2 (14:15)
[2017-05-30 18:33] LABS: POTASSIUM 3.2 MEQ/L (3.5-5.1)
[2017-05-30 18:37] LABS: BICARBONATE 19.7 MEQ/L (21.0-32.0); MAGNESIUM 1.7 MG/DL (1.5-2.5)
[2017-05-30] MEDS ORDERED: DEXTROSE 50% IN WATER 50 ML VIAL(D50) IV PRN (19:00)
[2017-05-30] MEDS ORDERED: DC previous DKA orders (HMC 1917) ONE (19:00)
[2017-05-30] MEDS ORDERED: PILL SPLITTER OTHER PRN (19:45)
[2017-05-30] MEDS: busPIRone HCL 5 MG TAB PO SCH (19:58)
[2017-05-30] MEDS: GABAPENTIN 300 MG CAP PO SCH (19:59)
[2017-05-30] MEDS: ATORVASTATIN 20 MG TAB PO SCH (19:59)
[2017-05-30] MEDS ORDERED: ALBUTEROL SULFATE 90 MCG/ACT HFA 8 GM INHALER INH PRN (20:00)
[2017-05-30] MEDS: DULoxetine HCl DR 60 MG CAP PO SCH (20:00)
[2017-05-30] MEDS ORDERED: DC Insulin drip 2 hrs post basal insulin dose ONE (20:00)
[2017-05-30] MEDS: PANTOPRAZOLE SOD 40 MG DELAYED RELEASE TAB PO SCH (20:03)
[2017-05-30] MEDS: INSULIN DETEMIR 100 UNITS/ML VIAL SQ SCH (20:18)
[2017-05-30 23:13] LABS: BICARBONATE 19.7 MEQ/L (21.0-32.0); MAGNESIUM 1.8 MG/DL (1.5-2.5)
[2017-05-30 23:16] LABS: POTASSIUM 2.9 MEQ/L (3.5-5.1)
[2017-05-30 23:33] LABS: BETA-HYDROXYBUTYRATE 1.89 MMOL/L (0.00-0.39)
[2017-05-31] VITALS: BP 132/77; PULSE 68; PULSE 76; RESP 17; TEMP 98.9; O2SAT 95
[2017-05-31] MEDS ORDERED: POTASSIUM PHOSPHATE INJ 30 MMOL in SODIUM CHLOR 0.9% 250 ML INJ 250 ML IV ONE ×2
[2017-05-31] MEDS: metroNIDAZOLE 500 MG INJ 100 ML IV SCH ×4 (00:20→23:26)
[2017-05-31] MEDS: SODIUM CHLOR 0.9% 1000 ML INJ 1,000 ML IV SCH ×3 (00:20→20:49)
[2017-05-31 04:00] VITALS: BP 136/59; PULSE 74; RESP 34; TEMP 99.5; O2SAT 93
[2017-05-31] MEDS: CHLORHEXIDINE GLUCONATE 2 % 1 PACK (2 CLOTHS) TOP SCH (04:00)
[2017-05-31 06:04] LABS: POTASSIUM 3.3 MEQ/L (3.5-5.1)
[2017-05-31 06:08] LABS: BICARBONATE 22.6 MEQ/L (21.0-32.0); MAGNESIUM 1.9 MG/DL (1.5-2.5)
[2017-05-31 08:00] VITALS: BP 120/64; PULSE 68; PULSE 70; RESP 18; TEMP 98.7
[2017-05-31 08:00] LABS: AUTOMATED NEUTROPHIL # 9.7 TH/MM3 (1.8-7.7); BASOPHIL # 0.1 TH/MM3 (0-0.2); BASOPHIL % 0.5 % (0.0-2.0); EOSINOPHIL # 0.1 TH/MM3 (0-0.4); EOSINOPHIL % 0.9 % (0.0-4.0); HEMATOCRIT 39.7 % (35.0-46.0); HEMO FLAGS DIFF FINAL; LYMPH % 26.2 % (9.0-44.0); LYMPHOCYTE # 3.8 TH/MM3 (1.0-4.8); MEAN CELL VOLUME 89.4 FL (80.0-100.0); MEAN CORPUSCULAR HEMOGLOBIN 29.9 PG (27.0-34.0); MEAN CORPUSCULAR HGB CONC 33.5 % (32.0-36.0); MONO % 6.3 % (0.0-8.0); NEUT % 66.1 % (16.0-70.0); PLATELET COUNT 344 TH/MM3 (150-450); RED BLOOD COUNT 4.44 MIL/MM3 (4.00-5.30); RED CELL DISTRIBUTION WIDTH 11.9 % (11.6-17.2); WHITE BLOOD COUNT 14.6 TH/MM3 (4.0-11.0)
[2017-05-31] MEDS: INSULIN ASPART SUPPLEMENTAL SCALE SQ SCH ×4 (08:00→21:00)
[2017-05-31] MEDS: DOCUSATE SODIUM 50 MG/SENNA 8.6 MG TAB PO SCH ×2 (09:00→20:48)
[2017-05-31] MEDS: INSULIN DETEMIR 100 UNITS/ML VIAL SQ SCH (09:17)
[2017-05-31] MEDS: DULoxetine HCl DR 60 MG CAP PO SCH (09:18)
[2017-05-31] MEDS: ASPIRIN 81 MG CHEW TAB CHEW SCH (09:19)
[2017-05-31] MEDS: CLOPIDOGREL 75 MG TAB PO SCH (09:19)
[2017-05-31] MEDS: PANTOPRAZOLE SOD 40 MG DELAYED RELEASE TAB PO SCH (09:19)
[2017-05-31] MEDS: GABAPENTIN 300 MG CAP PO SCH ×2 (09:20→20:47)
[2017-05-31] MEDS: busPIRone HCL 5 MG TAB PO SCH ×2 (09:20→20:48)
[2017-05-31] MEDS: ONDANSETRON HCL 4 MG/2 ML VIAL IV PUSH PRN ×2 (09:26→20:48)
[2017-05-31] MEDS: SODIUM CHLORIDE 0.9% FLUSH 10 ML FLUSH IV FLUSH SCH ×2 (09:40→20:47)
[2017-05-31 11:07] LABS: BICARBONATE 22.9 MEQ/L (21.0-32.0)
[2017-05-31 11:19] LABS: BETA-HYDROXYBUTYRATE 0.54 MMOL/L (0.00-0.39)
[2017-05-31 12:00] VITALS: BP 106/63; PULSE 78; PULSE 86; RESP 29; TEMP 98.4
--- NOTE | 2017-05-31 13:28 | HHI.PR ---
Subjective Remarks Patient states that she feels better. Abdominal pain is still present and is diffuse, however is much improved. Feels slightly nauseous. Patient had a low-grade temp with a MAXIMUM TEMPERATURE of 100.1F. Denies vomiting, has tolerated diet. Objective Vitals Vital Signs Date Time Temp Pulse Resp B/P (MAP) Pulse Ox O2 Delivery O2 Flow Rate FiO2 05/31/17 04:00 99.5 74 34 136/59 (84) 93 05/31/17 04:00 74 05/31/17 00:00 98.9 68 17 132/77 (95) 95 05/31/17 00:00 76 05/30/17 20:00 80 05/30/17 20:00 100.1 71 20 136/70 (92) 94 05/30/17 17:00 82 27 134/57 (82) 05/30/17 16:00 74 05/30/17 16:00 74 22 135/55 (81) 05/30/17 15:00 80 20 110/54 (72) 05/30/17 14:00 80 17 I/O 05/30/17 05/30/17 05/30/17 05/31/17 05/31/17 05/31/17 07:00 15:00 23:00 07:00 15:00 23:00 Intake Total 660 ml 800 ml 960 ml 150 ml Output Total 450 ml 900 ml 900 ml Balance 210 ml 800 ml -900 ml 60 ml 150 ml Intake IV Total 660 ml 800 ml 960 ml 150 ml Output Urine Total 450 ml 900 ml 900 ml Result Diagram: 05/31/17 0529 05/31/17 1048 Imaging Last Impressions Chest X-Ray 05/30/17 0000 Signed Impressions: Service Date/Time: Tuesday, May 30, 2017 12:43 - CONCLUSION: 1. No acute cardiopulmonary disease. Iban Miguel MD Abdomen/Pelvis CT 05/29/17 1454 Signed Impressions: Service Date/Time: Monday, May 29, 2017 16:01 - CONCLUSION: I do not see an etiology for patient's abdominal pain. Gallbladder surgical absent. Inflammatory changes are not visualized. Tyler Braxton MD FACR Objective Remarks Awake alert and oriented 3. NAD Lungs bilaterally Abdomen soft, nontender, nondistended No edema in lower extremities. Procedures None Medications and IVs Current Medications Medications (Trade) Dose Ordered Sig/Raul Route Start Time Stop Time Status Last Admin Metronidazole 100 ml @ 100 mls/hr Q8H IV 05/30/17 00:00 05/31/17 16:54 (Glucagon Inj) 1 mg UNSCH PRN OTHER 05/29/17 19:30 (NovoLOG SUPPLEMENTAL SCALE) 1 ACHS SLIDING SCALE SQ 05/29/17 21:00 05/31/17 12:00 Sodium Chloride 1,000 ml @ 100 mls/hr Q10H IV 05/29/17 19:22 05/31/17 16:54 (NS Flush) 2 ml UNSCH PRN IV FLUSH 05/29/17 19:30 (NS Flush) 2 ml BID IV FLUSH 05/29/17 21:00 05/31/17 09:40 (Tylenol) 650 mg Q4H PRN PO 05/29/17 19:30 (Tylenol) 650 mg Q6H PRN PO 05/29/17 19:30 (Morphine Inj) 2 mg Q3H PRN IV PUSH 05/29/17 19:30 05/30/17 19:58 ([place]-Colace) 1 tab BID PO 05/29/17 21:00 05/30/17 19:58 (Milk Of Magnesia Liq) 30 ml Q12H PRN PO 05/29/17 19:30 (Senokot) 17.2 mg Q12H PRN PO 05/29/17 19:30 (Dulcolax Supp) 10 mg DAILY PRN RECTAL 05/29/17 19:30 (Lactulose Liq) 30 ml DAILY PRN PO 05/29/17 19:30 (Zofran Inj) 4 mg Q6HR PRN IV PUSH 05/29/17 22:15 05/31/17 09:26 Miscellaneous Information 1 Q361D XX 05/30/17 12:15 05/30/17 12:15 (Chlorhexidine 2% Cloth) 3 pack Taper DAILY@04 TOP 05/31/17 04:00 05/27/18 03:59 05/31/17 04:00 (Chlorhexidine 2% Cloth) 3 pack UNSCH PRN TOP 05/30/17 12:15 Levofloxacin/ Dextrose 150 ml @ 100 mls/hr Q24H IV 05/30/17 14:00 05/31/17 13:40 (Proair Hfa Inh) 2 puff Q12HR PRN INH 05/30/17 20:00 (Aspirin Chew) 162 mg DAILY CHEW 05/31/17 09:00 05/31/17 09:19 (Lipitor) 20 mg HS PO 05/30/17 21:00 05/30/17 19:59 (Buspar) 7.5 mg BID PO 05/30/17 21:00 05/31/17 09:20 (Plavix) 75 mg DAILY PO 05/31/17 09:00 05/31/17 09:19 (Cymbalta Dr) 60 mg DAILY PO 05/30/17 20:00 05/31/17 09:18 (Neurontin) 1,200 mg BID PO 05/30/17 21:00 05/31/17 09:20 (Protonix) 40 mg DAILY PO 05/30/17 20:00 05/31/17 09:19 (Levemir Inj) 15 units DAILY SQ 05/30/17 20:00 05/31/17 09:17 (D50w (Vial) Inj) 50 ml UNSCH PRN IV 05/30/17 19:00 (Pill Splitter) 1 ea UNSCH PRN OTHER 05/30/17 19:45 Urinary Catheter: No Vascular Central Line Catheter: No A/P Problem List: (1) Sepsis ICD Code: A41.9 - Sepsis, unspecified organism Plan: Sepsis present on admission, the patient with leukocytosis and increased heart rate in the high 90s. The patient was admitted to intensive care unit Treated with IV insulin as per DKA protocol and IV fluids (2) DKA (diabetic ketoacidoses) ICD Code: E13.10 - Other specified diabetes mellitus with ketoacidosis without coma Plan: Patient presented with high anion gap metabolic acidosis with gap of 15 and elevated beta hydroxybutyrate. Patient treated with IV insulin as per DKA protocol. Anion gap metabolic acidosis has resolved and patient has been transitioned to subcutaneous insulin Patient has been started on a clear liquid diet which she has been tolerating well I will continue subcutaneously insulin, continue SSI with insulin NovoLog. Blood sugar seems to be stable. I will also advance diet to regular ADA 1800-calorie diet. (3) Gastroenteritis ICD Code: K52.9 - Noninfective gastroenteritis and colitis, unspecified Status: Acute Plan: Gastritis seems to be improving with resolved diarrhea. Continue IV Levaquin and IV Flagyl. (4) Bipolar disorder, current episode manic without psychotic features ICD Code: F31.10 - Bipolar disorder, current episode manic without psychotic features Status: Acute Plan: Continue home medications. The patient currently on aspirin, duloxetine , gabapentin. (5) Abdominal pain ICD Code: R10.9 - Unspecified abdominal pain Plan: Due to DKA and gastroenteritis. Continue pain control with IV morphine. (6) CAD (coronary artery disease) ICD Code: I25.10 - Atherosclerotic heart disease of [place] coronary artery without angina pectoris Plan: Seems to be stable. The patient is chest pain-free. Continue aspirin, Plavix, statin Assessment and Plan DVT prophylaxis: SCDs. Discharge Planning Possible discharge in a.m. Problem Qualifiers (1) CAD (coronary artery disease): Qualified Codes: I25.10 - Atherosclerotic heart disease of [place] coronary artery without angina pectoris Simon Osuna MD May 31, 2017 13:28
[2017-05-31] MEDS: LEVOFLOXACIN 750 MG PREMIX INJ 150 ML IV SCH (13:40)
[2017-05-31 16:00] VITALS: BP 107/63; PULSE 66; PULSE 78; RESP 15; TEMP 98.9
[2017-05-31] MEDS ORDERED: POTASSIUM CHLORIDE 10 MEQ CONTROLLED RELEASE TAB PO ONE (19:30)
[2017-05-31 20:00] VITALS: BP 117/59; PULSE 69; PULSE 72; RESP 14; TEMP 98.6; O2SAT 95
[2017-05-31] MEDS: MORPHINE SULFATE 4 MG/ML INJ IV PUSH PRN (20:47)
[2017-05-31] MEDS: ATORVASTATIN 20 MG TAB PO SCH (20:48)
[2017-06-01] VITALS: BP 107/58; PULSE 60; PULSE 71; RESP 18; TEMP 98.4; O2SAT 93
[2017-06-01 01:00] VITALS: BP 120/74; PULSE 66; RESP 16; TEMP 97.6; O2SAT 96
[2017-06-01 04:00] VITALS: BP 142/80; PULSE 57; RESP 16; TEMP 98.1; O2SAT 98
[2017-06-01] MEDS: CHLORHEXIDINE GLUCONATE 2 % 1 PACK (2 CLOTHS) TOP SCH (04:00)
[2017-06-01] MEDS: SODIUM CHLOR 0.9% 1000 ML INJ 1,000 ML IV SCH (06:27)
[2017-06-01 07:08] LABS: AUTOMATED NEUTROPHIL # 6.3 TH/MM3 (1.8-7.7); BASOPHIL # 0.1 TH/MM3 (0-0.2); BASOPHIL % 0.7 % (0.0-2.0); EOSINOPHIL # 0.4 TH/MM3 (0-0.4); EOSINOPHIL % 3.7 % (0.0-4.0); HEMO FLAGS DIFF FINAL; LYMPH % 33.8 % (9.0-44.0); LYMPHOCYTE # 3.8 TH/MM3 (1.0-4.8); MEAN CELL VOLUME 88.3 FL (80.0-100.0); MEAN CORPUSCULAR HEMOGLOBIN 30.8 PG (27.0-34.0); MEAN CORPUSCULAR HGB CONC 34.9 % (32.0-36.0); MONO % 5.6 % (0.0-8.0); NEUT % 56.2 % (16.0-70.0); PLATELET COUNT 315 TH/MM3 (150-450); RED CELL DISTRIBUTION WIDTH 12.2 % (11.6-17.2); WHITE BLOOD COUNT 11.2 TH/MM3 (4.0-11.0)
[2017-06-01 07:26] LABS: CHLORIDE 111 MEQ/L (98-107); POTASSIUM 3.3 MEQ/L (3.5-5.1); SODIUM (NA) 143 MEQ/L (136-145)
[2017-06-01 07:37] LABS: ALKALINE PHOSPHATASE 56 U/L (45-117); ALT (GPT) 17 U/L (10-53); ANION GAP 7 MEQ/L (5-15); AST (GOT) 11 U/L (15-37); BICARBONATE 24.9 MEQ/L (21.0-32.0); BLOOD UREA NITROGEN 9 MG/DL (7-18); GLOMERULAR FILTRATION RATE 114 ML/MIN (>89); TOTAL BILIRUBIN ADULT 0.4 MG/DL (0.2-1.0)
[2017-06-01] MEDS: INSULIN ASPART SUPPLEMENTAL SCALE SQ SCH ×3 (08:00→17:00)
[2017-06-01 08:54] VITALS: BP 149/76; PULSE 61; RESP 18; TEMP 97.9; O2SAT 97
[2017-06-01] MEDS: metroNIDAZOLE 500 MG INJ 100 ML IV SCH ×2 (09:47→16:09)
[2017-06-01] MEDS: DOCUSATE SODIUM 50 MG/SENNA 8.6 MG TAB PO SCH (09:48)
[2017-06-01] MEDS: INSULIN DETEMIR 100 UNITS/ML VIAL SQ SCH (09:48)
[2017-06-01] MEDS: CLOPIDOGREL 75 MG TAB PO SCH (09:48)
[2017-06-01] MEDS: DULoxetine HCl DR 60 MG CAP PO SCH (09:48)
[2017-06-01] MEDS: GABAPENTIN 300 MG CAP PO SCH (09:48)
[2017-06-01] MEDS: ASPIRIN 81 MG CHEW TAB CHEW SCH (09:49)
[2017-06-01] MEDS: busPIRone HCL 5 MG TAB PO SCH (09:49)
[2017-06-01] MEDS: SODIUM CHLORIDE 0.9% FLUSH 10 ML FLUSH IV FLUSH SCH (09:49)
[2017-06-01] MEDS: PANTOPRAZOLE SOD 40 MG DELAYED RELEASE TAB PO SCH (09:49)
[2017-06-01] MEDS ORDERED: POTASSIUM CHLORIDE 10 MEQ CONTROLLED RELEASE TAB PO ONE (11:00)
[2017-06-01 12:00] VITALS: BP 142/85; PULSE 62; RESP 18; TEMP 99.1; O2SAT 95
[2017-06-01] MEDS: LEVOFLOXACIN 750 MG PREMIX INJ 150 ML IV SCH (13:59)
--- NOTE | 2017-06-01 15:29 | HHI.DCPOC ---
Discharge Care Plan Diagnosis: (1) Sepsis (2) Gastroenteritis (3) DKA (diabetic ketoacidoses) (4) CAD (coronary artery disease) (5) Abdominal pain (6) Bipolar disorder, current episode manic without psychotic features Goals to Promote Your Health * To prevent worsening of your condition and complications * To maintain your health at the optimal level Directions to Meet Your Goals Take your medications as prescribed Follow your dietary instruction Follow activity as directed Keep your appointments as scheduled Take your immunizations and boosters as scheduled If your symptoms worsen call your PCP, if no PCP go to Urgent Care Center or Emergency Room Smoking is Dangerous to Your Health. Avoid second hand smoke Call the 24-hour hour crisis hotline for domestic abuse at Simon Osuna MD Jun 01, 2017 15:29
[2017-06-01] MEDS ORDERED: NOVOLOGP2 SQ (15:33)
[2017-06-01] MEDS ORDERED: LEVEMIR SQ (15:33)
[2017-06-01] MEDS ORDERED: GLUCTES12 (15:36)
[2017-06-01] MEDS ORDERED: INSU1MIS15 (15:36)
[2017-06-01] MEDS ORDERED: LANCETS1 MI1 (15:36)
[2017-06-01] MEDS ORDERED: GLUCKIT15 (15:36)
[2017-06-01] MEDS ORDERED: BIOM30MI (15:36)
--- NOTE | 2017-06-01 15:48 | HHI.DS ---
Discharge Summary Admission Date May 29, 2017 at 19:27 Discharge Date: Jun 01, 2017 Admitting Diagnosis ENTERITIS, NONANION GAP ACIDOSIS, KETONURIA (1) Sepsis ICD Code: A41.9 - Sepsis, unspecified organism Diagnosis: Principal (2) DKA (diabetic ketoacidoses) ICD Code: E13.10 - Other specified diabetes mellitus with ketoacidosis without coma Diagnosis: Principal (3) Gastroenteritis ICD Code: K52.9 - Noninfective gastroenteritis and colitis, unspecified Diagnosis: Principal Status: Acute (4) Bipolar disorder, current episode manic without psychotic features ICD Code: F31.10 - Bipolar disorder, current episode manic without psychotic features Diagnosis: Secondary Status: Acute (5) Abdominal pain ICD Code: R10.9 - Unspecified abdominal pain Diagnosis: Principal (6) CAD (coronary artery disease) ICD Code: I25.10 - Atherosclerotic heart disease of [place] coronary artery without angina pectoris Diagnosis: Secondary (7) Hypokalemia ICD Code: E87.6 - Hypokalemia Diagnosis: Principal Procedures None Brief History - From Admission This is a 49-year-old female with past medical history of diabetes, hypertension hyperlipidemia, CAD who presents to [facility] complaining of diffuse abdominal pain associated with persistent vomiting, nausea and low-grade fever with a MAXIMUM TEMPERATURE of 100.6 this past 05/28. The patient states abdominal pain is constant severe now 03/23, nonradiating. The patient denies any alleviating or aggravating factors, The patient states that she has not been compliant with her oral antidiabetic medications. The patient states that she was taking glipizide in the past. The patient also complains of cough with productive sputum however denies chance of breath or chest pain. The patient also denied dysuria. The patient states she feels nauseous at the moment of this interview. CBC/BMP: 06/01/17 0619 06/01/17 0619 Significant Findings Laboratory Tests Test 05/29/17 18:10 05/29/17 18:18 05/30/17 05:41 05/30/17 12:40 Urine Specific [place] GREATER THAN 1.035 Urine Glucose (UA) 500 mg/dL (NEG) Urine Ketones 80 OR GREATER mg/dL (NEG) Urine Occult Blood SMALL (NEG) Urine Squamous Epithelial Cells 6-8 /hpf (0-5) Urine Bacteria RARE /hpf (NONE) Blood Gas HCO3 19 mmol/L (22-26) 19 mmol/L (22-26) Blood Gas Base Excess -4.6 mmol/L (-2-2) -4.0 mmol/L (-2-2) Arterial Blood Partial Pressure CO2 32 mmHG (38-42) 28 mmHg (38-42) White Blood Count 18.9 TH/MM3 (4.0-11.0) Neutrophils (%) (Auto) 76.3 % (16.0-70.0) Neutrophils # (Auto) 14.4 TH/MM3 (1.8-7.7) Random Glucose 180 MG/DL (74-106) Calcium Level 8.3 MG/DL (8.5-10.1) Potassium Level 3.2 MEQ/L (3.5-5.1) Carbon Dioxide Level 14.4 MEQ/L (21.0-32.0) Anion Gap 16 MEQ/L (5-15) Arterial Blood pH 7.46 (7.380-7.420) Test 05/30/17 17:09 05/30/17 22:44 05/31/17 00:33 05/31/17 05:29 Random Glucose 271 MG/DL (74-106) 205 MG/DL (74-106) 153 MG/DL (74-106) Calcium Level 7.8 MG/DL (8.5-10.1) 7.7 MG/DL (8.5-10.1) 7.7 MG/DL (8.5-10.1) Phosphorus Level 1.6 MG/DL (2.5-4.9) 1.3 MG/DL (2.5-4.9) Potassium Level 3.2 MEQ/L (3.5-5.1) 2.9 MEQ/L (3.5-5.1) 3.3 MEQ/L (3.5-5.1) Carbon Dioxide Level 19.7 MEQ/L (21.0-32.0) 19.7 MEQ/L (21.0-32.0) B-Hydroxybutyrate 1.89 MMOL/L (0.00-0.39) White Blood Count 14.6 TH/MM3 (4.0-11.0) Neutrophils # (Auto) 9.7 TH/MM3 (1.8-7.7) Creatinine 0.49 MG/DL (0.50-1.00) Chloride Level 109 MEQ/L (98-107) Test 05/31/17 10:48 06/01/17 06:19 Random Glucose 214 MG/DL (74-106) 131 MG/DL (74-106) Calcium Level 7.9 MG/DL (8.5-10.1) 7.6 MG/DL (8.5-10.1) Phosphorus Level 1.9 MG/DL (2.5-4.9) Potassium Level 3.0 MEQ/L (3.5-5.1) 3.3 MEQ/L (3.5-5.1) Chloride Level 108 MEQ/L (98-107) 111 MEQ/L (98-107) B-Hydroxybutyrate 0.54 MMOL/L (0.00-0.39) White Blood Count 11.2 TH/MM3 (4.0-11.0) Total Protein 5.4 GM/DL (6.4-8.2) Albumin 2.7 GM/DL (3.4-5.0) Aspartate Amino Transf (AST/SGOT) 11 U/L (15-37) Imaging Last Impressions Chest X-Ray 05/30/17 0000 Signed Impressions: Service Date/Time: Tuesday, May 30, 2017 12:43 - CONCLUSION: 1. No acute cardiopulmonary disease. Iban Miguel MD Abdomen/Pelvis CT 05/29/17 1454 Signed Impressions: Service Date/Time: Monday, May 29, 2017 16:01 - CONCLUSION: I do not see an etiology for patient's abdominal pain. Gallbladder surgical absent. Inflammatory changes are not visualized. Tyler Braxton MD FACR PE at Discharge Awake alert and oriented 3. NAD Lungs bilaterally Abdomen soft, nontender, nondistended No edema in lower extremities. Pt update on day of discharge The patient states that she wants to go home. Denies abdominal pain, nausea or vomiting. The patient states she has tolerated diet well. Blood sugars are very well controlled. I explained to the patient that I will send her home with subcutaneously Levemir and SSI with insulin NovoLog. I asked if she knew how to inject subcutaneously insulin to which she responded yes. I explained to her that she should obtain her blood sugars at home fasting resting in the morning and before every meal. I also advised the patient to follow-up with her primary care physician in 1-2 weeks or sooner she could get an appointment. Hospital Course The patient was admitted to the intensive care unit initially with an admission diagnosis of DKA. The patient however was admitted for now 9 Metabolic acidosis. The patient was admitted to intensive care unit, and started on IV insulin drip as per DKA protocol as well as IV fluids and aggressive electrolyte replacement as per DKA protocol. Patient was mild a hyponatremic but this was likely pseudohyponatremia from elevated glucose in the 280s. The patient's anion gap quickly improved and then the insulin drip was discontinued and the patient was transitioned to subcutaneous insulin. The patient also was started on diet which she tolerated well and has been advanced to regular ADA diet. IV morphine was prescribed for control of abdominal pain and the patient was started on IV Levaquin and IV Flagyl to treat an acute gastroenteritis which is probably why the patient developed DKA. Patient's home medications include an aspirin, Plavix and statin which the patient takes for CAD were continued during her admission. Please note that the patient remained chest pain-free and did not show any events on telemetry during hospitalization. The patient was discharged home on subcutaneously Levemir, SSI with insulin NovoLog. Hemoglobin A1c ordered and pending prior to discharge. I will also discharge on metformin but hold glipizide. Prior to be discharge the patient was asked if she knew how to inject insulin and check her sugars, she told me yes. I will write scripts for diabetes supplies including syringes and glucose monitor in case the patient does not have them at home. Pt Condition on Discharge: Stable Discharge Disposition: Discharge Home Discharge Time: > 30 minutes Discharge Instructions DIET: Follow Instructions for: Diabetic Diet Activities you can perform: Regular-No Restrictions Activities to Avoid: Prolonged Standing, Strenuous Activity Follow up Referrals: PCP Follow-up - 2 Weeks New Medications: Blood Glucose Monitoring W/Device (Glucocom Blood Glucose Mo W/Device) 1 Kit Kit KIT .ROUTE DIRECTED for Blood Sugar Management, #1 Glucocom Test Strips (Glucocom Test Strips) 1 Vanessa Vanessa EA .ROUTE DIRECTED for Blood Sugar Management, #1 Insulin Aspart Inj (Novolog Inj) 1,000 Unit/10 Ml Vial 2-12 UNITS SQ ACHS for Blood Sugar Management, #10 ML 0 Refills Max dose at bedtime ( ) units; sugars less than 70,(0) units; sugars 150-199,(2) units; sugars 200-249,(4) units; sugars 250-299,(7) units; sugars 300-349,(10) units; sugars greater than 349,(12)units Insulin Detemir Inj (Levemir Inj) 1,000 unit/ 10 ML Vial 15 UNITS SQ HS for Blood Sugar Management, #1 VIAL 0 Refills Do not mix with any other Insulin. Insulin Syringe/U-100/31G X 5/16" 1 ml (Insulin Syringe/U-100/31G X 5/16" 1 ml) 31 Gauge X 5/16" Mis EA .ROUTE DIRECTED for Blood Sugar Management, #1 0 Refills Lancets (Lancets) 1 Mis Mis EA .ROUTE DIRECTED for Blood Sugar Management, #1 0 Refills Parenteral Therapy Supplies (Sharpsafety Sharps Contai) 1 Mis Mis EA .ROUTE DIRECTED, #1 0 Refills Continued Medications: Albuterol 18 GM Inh (Ventolin Hfa 18 GM Inh) 90 Mcg/Act Aer 2 PUFF INH Q4-6H PRN for SHORTNESS OF BREATH, #1 INHALER 0 Refills Amlodipine (Norvasc) 5 Mg Tab 5 MG PO DAILY, #30 TAB Aspirin (Aspirin Low Dose) 81 Mg Chew 2 TAB CHEW DAILY, TAB 0 Refills Atorvastatin (Atorvastatin) 20 Mg Tab 20 MG PO HS for Cholesterol Management, #30 TAB 11 Refills Baclofen (Baclofen) 10 Mg Tab 10 MG PO BID for Muscle Spasm, TAB 0 Refills Take with food or milk Buspirone (Buspirone) 7.5 Mg Tab 7.5 MG PO BID for Anxiety, TAB 0 Refills Clopidogrel (Plavix) 75 Mg Tab 75 MG PO DAILY, #[address] (Duloxetine DR) 60 Mg Capdr 60 MG PO DAILY, #30 CAP 0 Refills Gabapentin (Gabapentin) 600 Mg Tab 1200 MG PO BID, #120 TAB 5 Refills Metoprolol Succinate ER 24 HR (Metoprolol Succinate ER 24 HR) 25 Mg Tab 25 MG PO DAILY, #30 TAB 5 Refills Pantoprazole (Protonix) 40 Mg Tab 40 MG PO DAILY for Reflux, #30 TAB 5 Refills Tramadol (Ultram) 50 Mg Tab 100 MG PO Q12HR PRN for PAIN, #120 TAB 0 Refills Discontinued Medications: Glipizide ER (Glipizide XL) 10 Mg Glynn 10 MG PO DAILY for Blood Sugar Management, #30 TAB 0 Refills Take with breakfast or first main meal of the day Simon Osuna MD Jun 01, 2017 15:48
[2017-06-01 16:00] VITALS: BP 140/82; PULSE 71; RESP 18; TEMP 98; O2SAT 94
[2017-06-01 17:12] LABS: HEMOGLOBIN A1a 1.6 %; HEMOGLOBIN A1b 0.9 %; HEMOGLOBIN Ao 79.2 %; HEMOGLOBIN F 1.6 %
== END 2017-06-01 18:04 | disposition home or self-care (01) | DRG 871 ==
LOC: PHED 14:18 → PHEDA 19:27 → PHICU 21:18 → PH5A 06-01 00:39
PROVIDERS: ADMIT Hospitalist; ATTEND Hospitalist
DX: A41.9 Sepsis, unspecified organism (principal); E13.10 Other specified diabetes mellitus with ketoacidosis without coma; F31.10 Bipolar disorder, current episode manic without psychotic features, unspecified; I10 Essential (primary) hypertension; J44.9 Chronic obstructive pulmonary disease, unspecified; I25.10 Atherosclerotic heart disease of native coronary artery without angina pectoris; H91.90 Unspecified hearing loss, unspecified ear; G89.29 Other chronic pain; M54.9 Dorsalgia, unspecified; F17.210 Nicotine dependence, cigarettes, uncomplicated; E78.5 Hyperlipidemia, unspecified; K52.9 Noninfective gastroenteritis and colitis, unspecified; E87.6 Hypokalemia; Z86.73 Personal history of transient ischemic attack (TIA), and cerebral infarction without residual deficits; I25.2 Old myocardial infarction; Z79.84 Long term (current) use of oral hypoglycemic drugs
CPT/HCPCS: 36600; 71010; 74177; 76937; 80048; 80053; 81001; 82010; 82805; 82948; 83036; 83605; 83735; 84100; 85025; 87641; 96361; 96365; 96372; 96375; J0744; J1170; J1815; J1956; J2270; J2405; J7030; J7042; J7050; Q9967

== ENCOUNTER 2018-06-14 09:58 | Observation (INO) ==
[2018-06-14] MEDS ORDERED: Metoprolol Inj 5 MG/5 ML Vial IV.PUSH ONE (10:29)
[2018-06-14 10:38] LABS: Baso # (Auto) 0.1 th/mm3 (0.0-0.2); Baso % (Auto) 0.6 % (0.0-2.0); Eos # (Auto) 0.2 th/mm3 (0.0-0.4); Eos % (Auto) 0.9 % (0.0-4.0); Hematocrit 43.2 % (35.0-46.0); Hemoglobin 14.6 gm/dL (11.6-15.3); Lymph # (Auto) 3.6 th/mm3 (1.0-4.8); Lymph % (Auto) 20.4 % (9.0-44.0); Mean Corpuscular HGB Conc 33.7 % (32.0-36.0); Mean Corpuscular Volume 88.9 fL (80.0-100.0); Mean Platelet Volume 6.8 fL (7.0-11.0); Mono # (Auto) 0.5 th/mm3 (0.0-0.9); Mono % (Auto) 2.6 % (0.0-8.0); Neut % (Auto) 75.5 % (16.0-70.0); Platelet Count 507 th/mm3 (150-450); Red Blood Count 4.86 mil/mm3 (4.00-5.30); Red Cell Distribution Width 12.6 % (11.6-17.2); White Blood Count 17.4 th/mm3 (4.0-11.0)
[2018-06-14 11:06] LABS: Chloride 104 meq/L (98-107); Potassium 3.7 meq/L (3.5-5.1); Sodium 140 meq/L (136-145)
[2018-06-14 11:09] LABS: Albumin 4.1 g/dL (3.4-5.0); Anion Gap 15 meq/L (5-15); Calcium 8.7 mg/dL (8.5-10.1); Carbon Dioxide 20.8 meq/L (21.0-32.0); Glucose,Random 101 mg/dL (74-106)
[2018-06-14 11:10] LABS: Blood Urea Nitrogen 12 mg/dL (7-18)
[2018-06-14 11:12] LABS: Alanine Aminotransferase 26 U/L (10-53); Aspartate Aminotransferase 20 U/L (15-37)
[2018-06-14 11:13] LABS: Glomerular Filtration Rate 83 mL/min (>89)
[2018-06-14 11:14] LABS: Total Protein 7.8 g/dL (6.4-8.2)
[2018-06-14 11:15] LABS: Alkaline Phosphatase 66 U/L (45-117)
--- NOTE | 2018-06-14 11:19 | CT ---
EXAM DATE: 06/14/2018 10:31 AM EDT AGE/SEX: 58 years / Female INDICATIONS: Headache and elevated blood pressure. CLINICAL DATA: This is the patient's initial encounter. Patient reports that signs and symptoms have been present for 1 day and indicates a pain score of 5/10. MEDICAL/SURGICAL HISTORY: Diabetes. Gastroesophageal reflux disease. Myocardial infarction. Appen dectomy. Cholecystectomy. Hysterectomy. RADIATION DOSE: 54.48 CTDI (mGy) COMPARISON: C, MRI BRAIN W/O CONTRAST, 02/29/2016. C, MRA BRAIN W/O CONTRAST, 02/29/2016. . TECHNIQUE: CT of the head without contrast. Using automated exposure control and adjustment of the mA and/or kV according to patient size, radiation dose was kept as low as reasonably achievable to ob tain optimal diagnostic quality images. DICOM format image data is available electronically for revi ew and comparison. FINDINGS: Cerebrum: The ventricles are normal for age. No evidence of midline shift, mass lesion, hemorrhage or acute infarction. No extraaxial fluid collections are seen. Posterior Fossa: The cerebellum and brainstem are intact. The 4th ventricle is midline. The cerebe llopontine angle is unremarkable. Extracranial: The visualized portion of the orbits is intact. Skull: The calvaria is intact. No evidence of skull fracture. CONCLUSION: 1. Negative CT Head non contrast. . Electronically signed by: Kennedy Bustillo MD 06/14/2018 11:17 AM EDT
[2018-06-14 11:31] LABS: Creatine Kinase 39 U/L (26-192)
--- NOTE | 2018-06-14 11:33 | XR ---
EXAM DATE: 06/14/2018 10:19 AM EDT AGE/SEX: 58 years / Female INDICATIONS: Chest Pain CLINICAL DATA: This is the patient's initial encounter. Patient reports that signs and symptoms have been present for 1 day and indicates a pain score of 7/10. MEDICAL/SURGICAL HISTORY: . Diabetes. Gastroesophageal reflux disease. Myocardial infarction. . Appendectomy. Cholecystectomy. Hysterectomy. COMPARISON: [facility], CHEST SINGLE AP, 05/30/2017. . FINDINGS: A single AP view of the chest demonstrates the lungs to be symmetrically aerated without evidence of mass, infiltrate or effusion. The cardiomediastinal contours are unremarkable. Osseous structures a re intact. CONCLUSION: Negative for an acute process. Electronically signed by: Tyler Braxton MD 06/14/2018 11:32 AM EDT
[2018-06-14] MEDS ORDERED: Dextrose 50% in Water 50 ML Vial IV.PUSH PRN (12:44)
[2018-06-14] MEDS ORDERED: Morphine Inj 4 MG/ML Vial IV.PUSH PRN (12:46)
[2018-06-14] MEDS ORDERED: HYDROmorphone PF Inj 0.5 MG/0.5 ML Syringe IV.PUSH ONE (12:47)
--- NOTE | 2018-06-14 12:55 | ED ---
HPI General Chief complaint: Nausea/Vomiting/Diarrhea Stated complaint: Sweating/nausea Time Seen by Provider: 06/14/18 10:19 History of Present Illness HPI narrative: This is a 58-year-old female with history of coronary artery disease, diabetes mellitus, hypertension, tobacco use, presents today with complaints of nausea vomiting and chest pain. Patient states that the chest pain is like the previous chest pain that she has had with her previous MIs. The patient also reports diaphoresis. There is no reported fevers, chills. There is no reported diarrhea. There is shortness of breath with the pain. Related Data Home Medications Medication Instructions Recorded Confirmed amlodipine 2.5 mg PO DAILY 06/14/18 06/14/18 atorvastatin 20 mg PO DAILY 06/14/18 06/14/18 buspirone 30 mg PO BID 06/14/18 06/14/18 cinnamon bark [Cinnamon] 2,000 mg PO BID 06/14/18 06/14/18 duloxetine [Cymbalta] 60 mg PO BID 06/14/18 06/14/18 insulin glargine [Basaglar KwikPen 20 unit SUBCUT DAILY 06/14/18 06/14/18 U-100 Insulin] lisinopril 10 mg PO DAILY 06/14/18 06/14/18 metformin 1,000 mg PO BID 06/14/18 06/14/18 Allergies Allergy/AdvReac Type Severity Reaction Status Date / Time bee venom protein (honey bee) AdvReac Severe Anaphylaxis Verified 06/14/18 10:17 codeine AdvReac Severe ITCH Verified 06/14/18 10:17 Review of Systems ROS: all other systems reviewed are negative Constitutional Denies chills and Denies fever(s) Eyes Reports system reviewed and no additional complaints, except [facility] ENT Reports system reviewed and no additional complaints, except as [facility] Cardiovascular Reports chest pain, Reports diaphoresis and Reports dyspnea Respiratory Denies cough and Reports dyspnea Gastrointestinal Denies abdominal pain, Reports nausea and Reports vomiting Genitourinary Reports system reviewed and no additional complaints, except as [facility] Musculoskeletal Reports system reviewed and no additional complaints, except as [facility] Neurologic Reports system reviewed and no additional complaints, except as [facility] Medical History Medical History Diabetes (Acute) GERD (gastroesophageal reflux disease) (Acute) H/O: hysterectomy (Acute) High cholesterol (Acute) Myocardial infarction (Acute) Surgical History Surgical History Hx of appendectomy (Acute) Hx of cholecystectomy (Acute) Social History Social History Substance History: No History of Abuse Second Hand Smoke Exposure: No Smoking Status: Heavy tobacco smoker Tobacco Type: Cigarettes How Often Do You Have a Drink Containing Alcohol: Never Recent Travel in [facility] within the Last 8 Weeks: No Recent Out of Country Travel within the Last 8 Weeks: No Immunization History Tetanus Immunization: Unsure Hx Influenza Vaccine This Season: No Exam Narrative Exam Narrative: GENERAL: Well-developed well-nourished female who is actively vomiting and diaphoretic. SKIN: Focused skin assessment warm/dry. HEAD: Atraumatic. Normocephalic. EYES: No scleral icterus. No injection or drainage. ENT: No nasal bleeding or discharge. Mucous membranes pink and moist. NECK: Trachea midline. Supple. CARDIOVASCULAR: Regular rate and rhythm. No murmur appreciated. RESPIRATORY: No accessory muscle use. Clear to auscultation. Breath sounds equal bilaterally. GASTROINTESTINAL: Abdomen soft, non-tender, nondistended. No rebound or guarding. MUSCULOSKELETAL: No obvious deformities. No clubbing. No cyanosis. No edema. NEUROLOGICAL: Awake and alert. No obvious cranial nerve deficits. Motor grossly within normal limits. Normal speech. Course Initial Documented Vital Signs Temperature 97.6 F 06/14/18 10:11 Pulse Rate 76 06/14/18 10:11 Respiratory Rate 22 06/14/18 10:11 Blood Pressure 207/109 H 06/14/18 10:11 Pulse Oximetry 98 06/14/18 10:11 Last Documented Vital Signs Temperature 97.6 F 06/14/18 10:11 Pulse Rate 70 06/14/18 11:54 Respiratory Rate 18 06/14/18 11:54 Blood Pressure 164/86 H 06/14/18 11:54 Pulse Oximetry 97 06/14/18 11:54 Medical Decision Making MDM Narrative Medical decision making narrative: 58-year-old female presents today with complaints of chest pain. Patient had diaphoresis and nausea vomiting. Patient states this was like her previous pain. Patient's EKG showed no evidence of acute ST elevation or depression. Cardiac enzymes are within normal limits. Given the patient's history and her symptoms, she will be admitted to the hospital. Patient's blood pressure was also elevated over 200 systolic and 100 diastolic. She was given Lopressor and had Nitropaste placed on her anterior chest wall. Patient still having nausea. CT scan of the brain was negative for acute process. She will be admitted to hospital for rule out therapy. She is been medicated with Dilaudid 0.5 mg followed by Compazine 10 mg IV x1 dose. Case was discussed with Dr. Ozuna who is agreement with the above admission. Medical Screen Exam Complete: Yes Emergency Medical Condition: Yes Differential Diagnosis Differential Diagnosis: ACS versus metabolic derangement versus infection Lab Data Result diagrams: 06/14/18 10:10 06/14/18 10:10 Lab Results 06/14/18 06/14/18 Range/Units 10:10 10:10 CBC w Diff Auto diff final WBC 17.4 H (4.0-11.0) th/mm3 RBC 4.86 (4.00-5.30) mil/mm3 Hgb 14.6 (11.6-15.3) gm/dL Hct 43.2 (35.0-46.0) % MCV 88.9 (80.0-100.0) fL MCH 30.0 (27.0-34.0) pg MCHC 33.7 (32.0-36.0) % RDW 12.6 (11.6-17.2) % Plt Count 507 H (150-450) th/mm3 MPV 6.8 L (7.0-11.0) fL Neut % (Auto) 75.5 H (16.0-70.0) % Lymph % (Auto) 20.4 (9.0-44.0) % [place] % (Auto) 2.6 (0.0-8.0) % Eos % (Auto) 0.9 (0.0-4.0) % Baso % (Auto) 0.6 (0.0-2.0) % Neut # (Auto) 13.0 H (1.8-7.7) th/mm3 Lymph # (Auto) 3.6 (1.0-4.8) th/mm3 [place] # (Auto) 0.5 (0.0-0.9) th/mm3 Eos # (Auto) 0.2 (0.0-0.4) th/mm3 Baso # (Auto) 0.1 (0.0-0.2) th/mm3 WBC Differential . Differential Comment . Sodium 140 (136-145) meq/L Potassium 3.7 (3.5-5.1) meq/L Chloride 104 (98-107) meq/L Carbon Dioxide 20.8 L (21.0-32.0) meq/L Anion Gap 15 (5-15) meq/L BUN 12 (7-18) mg/dL Creatinine 0.72 (0.50-1.00) mg/dL Estimated GFR 83 L (>89) mL/min Random Glucose 101 (74-106) mg/dL Calcium 8.7 (8.5-10.1) mg/dL Total Bilirubin 0.5 (0.2-1.0) mg/dL AST 20 (15-37) U/L ALT 26 (10-53) U/L Alkaline Phosphatase 66 (45-117) U/L Total Creatine Kinase 39 (26-192) U/L Troponin I Less than 0.02 L (0.02-0.05) ng/mL Total Protein 7.8 (6.4-8.2) g/dL Albumin 4.1 (3.4-5.0) g/dL Imaging Data Radiologist's impression: Chest X-Ray 06/14/18 10:19 CONCLUSION: Negative for an acute process. Head CT 06/14/18 10:27 CONCLUSION: 1. Negative CT Head non contrast. . Discharge Plan Discharge Disposition Patient Disposition: 30 Still Patient Discharge Details Diagnosis: Atypical chest pain, Nausea and vomiting, Diaphoresis, Tobacco use Physicians Team ED Provider: Syd Arana Primary Care Provider: Leo Gooden Rxs /Orders / Referrals /Forms Prescriptions: No Action atorvastatin 20 mg Tablet 20 mg PO DAILY RF: 0 amlodipine 2.5 mg Tablet 2.5 mg PO DAILY RF: 0 buspirone 30 mg Tablet 30 mg PO BID RF: 0 metformin 1,000 mg Tablet 1,000 mg PO BID RF: 0 lisinopril 10 mg Tablet 10 mg PO DAILY RF: 0 cinnamon bark [Cinnamon] 500 mg Capsule 2,000 mg PO BID RF: 0 duloxetine [Cymbalta] 60 mg Capsule,Delayed Release(Dr/Ec) 60 mg PO BID RF: 0 insulin glargine [Basaglar KwikPen U-100 Insulin] 100 unit/mL (3 mL) Insulin Pen 20 unit SUBCUT DAILY RF: 0 Discharge Interventions Interventions: Vital Signs Last Done: 06/14/18 10:12 Status ED Status: With Doctor
[2018-06-14 13:00] LABS: Bilirubin,Urine Negative (Negative); Clarity,Urine Slightly Cloudy (Clear); Color,Urine Yellow (Yellw/Straw); Glucose,Urine (UA) Negative (Negative); Leukocyte Esterase,Urine Negative (Negative); Nitrite,Urine Negative (Negative); PH,Urine 7.5 (5.0-8.5); Urobilinogen,Urine 0.2 mg/dL (Less than 2)
[2018-06-14 13:10] LABS: Amorphous Sediment,Urine Few /hpf; RBC,Urine 0-3 /hpf (0-3); Squamous Epithelial Cell,Urine 0-5 /hpf (0-5)
[2018-06-14 13:11] LABS: Bacteria,Urine Moderate /hpf
[2018-06-14] MEDS ORDERED: HYDROmorphone PF Inj 2 MG/ML Vial IV.PUSH ONE (13:30)
[2018-06-14] MEDS: Sod Chloride 0.9% Inj 1,000 ML IV.CONT SCH (13:32)
[2018-06-14] MEDS: Heparin - SQ 10,000 UNITS/ML Vial SQ SCH ×2 (13:46→21:19)
[2018-06-14] MEDS ORDERED: Pantoprazole Inj 40 MG Vial IV.PUSH ONE (14:47)
--- NOTE | 2018-06-14 14:57 | P.HPIM ---
History of Present Illness Primary Care Physician: Leo Gooden History of Present Illness: Mrs. Gonzalez is a 58-year-old female. She came in secondary to chest pain with diaphoresis and nausea. She reports that this feels similar to myocardial infarction she has had in the past and she has concerns for this. Findings upfront did not suggest acute ME but acute ME needs to be ruled out. She cannot recall any food intake which may have caused her gastroenteritis. No sick contacts. White blood cell count is elevated. Hypertensive urgency is present and could be giving her increased cardiac demand, precipitating angina. When seen during this admit she continues to have chest pain and nausea. Primary complaint when seen is her nausea. No other complaints at this time. This patient does continue to smoke as an outpatient. She does have diabetes mellitus type 2. - Diagnosis (1) Atypical chest pain (2) Nausea and vomiting (3) Diaphoresis (4) Tobacco use Review of Systems Constitutional: No fevers, no chills no night sweats, no fatigue, no weakness, diaphoresis Eyes: No eye pain, no blurry vision, no loss of vision ENT: No sore throat, no ear pain, no rhinorrhea Cardiovascular: chest pain, no tachycardia, no palpitations, no shortness of breath, no syncope Respiratory: No wheezing, no cough, no shortness of breath Gastrointestinal: No abdominal pain, no black tarry stools, no bright red blood per rectum, nausea/vomiting, no diarrhea Musculoskeletal: No joint pain, no muscle cramps, no stiffness Integumentary: No rash, no ulcers, no drainage Neurologic: No sensory loss, no loss of motor function, no dizziness Psychiatric: No behavioral changes, no hallucinations, no suicidal ideations [facility] - History History Provided By: Patient - Medical History Medical History: Medical History (Last Updated 06/14/18 @ 10:14 by Idalia Wilder RN) Diabetes GERD (gastroesophageal reflux disease) H/O: hysterectomy High cholesterol Myocardial infarction - Surgical History Surgical History: Surgical History (Last Updated 06/14/18 @ 10:14 by Idalia Wilder RN) Hx of appendectomy Hx of cholecystectomy - Family History Family History: Family History (Last Updated 06/14/18 @ 14:52 by Trino Ozuna MD) Other Adopted person - Tobacco History Second Hand Smoke Exposure: No Tobacco Use In Past 30 Days: Yes Smoking Status: Heavy tobacco smoker Tobacco Type: Cigarettes - Alcohol History How Often Do You Have a Drink Containing Alcohol: Never - Substance Use History Substance History: No History of Abuse - Travel History Recent Travel in the [place] Within the Last 8 Weeks: No Recent Travel Out of the Country Within the Last 8 Weeks: No - Immunization History Tetanus Immunization: Unsure Hx Influenza Vaccine This Season: No Medications and Allergies Active Medications: Active Medications Al Hydroxide/Mg Hydroxide (Milk Of Magndemetrius Liq) 30 ml PO Q12H PRN PRN Reason: Mild Constipation Aspirin (Aspirin) 325 mg PO DAILY BENY Clonidine HCl (Catapres) 0.1 mg PO Q6H PRN PRN Reason: SYS BP GREATER THAN 160 MMHG Dextrose (D50w Vial) 50 ml IV.PUSH UNSCH PRN PRN Reason: PER HYPOGLYCEMIA PROTOCOL Enalaprilat (Vasotec Inj) 1.25 mg IV.PUSH Q6H PRN PRN Reason: SBP>160, DBP>90 Glucagon (Glucagon Inj) 1 mg OTHER PRN PRN PRN Reason: for Hypoglycemia Protocol Heparin Sodium (Porcine) (Heparin Inj) 5,000 units SQ Q12HR [facility] Last Admin: 06/14/18 13:46 Dose: 5,000 units Sodium Chloride (Ns Inj) 1,000 mls @ 75 mls/hr IV.CONT .[id number] [facility] Last Admin: 06/14/18 13:32 Dose: 75 mls/hr Insulin Aspart (Novolog Insulin Correctional Sugar Inj) 0 unit SQ ACHS BENY; Protocol Metoclopramide HCl (Reglan Inj) 5 mg IV.PUSH Q8H PRN; Protocol PRN Reason: NAUSEA Morphine Sulfate (Morphine Inj) 2 mg IV.PUSH Q4H PRN PRN Reason: Pain 3 to 6 Morphine Sulfate (Morphine Inj) 4 mg IV.PUSH Q4H PRN PRN Reason: Pain 7 to 10 Nitroglycerin (Nitrostat Sl) 0.4 mg SL Q5M PRN PRN Reason: CHEST PAIN Ondansetron HCl (Zofran Inj) 4 mg IV.PUSH Q6H PRN PRN Reason: NAUSEA OR VOMITING Pantoprazole Sodium (Protonix Inj) 40 mg IV.PUSH ONCE ONE Stop: 06/14/18 14:48 Sodium Chloride (Ns Flush) 2 ml IV.FLUSH UNSCH PRN PRN Reason: FLUSH AFTER USING IV ACCESS Last Admin: 06/14/18 10:40 Dose: 2 ml Allergies Allergy/AdvReac Type Severity Reaction Status Date / Time bee venom protein (honey bee) AdvReac Severe Anaphylaxis Verified 06/14/18 10:17 codeine AdvReac Severe ITCH Verified 06/14/18 10:17 Home Medications Medication Instructions Recorded Confirmed Type amlodipine 2.5 mg PO DAILY 06/14/18 06/14/18 History atorvastatin 20 mg PO DAILY 06/14/18 06/14/18 History buspirone 30 mg PO BID 06/14/18 06/14/18 History cinnamon bark [Cinnamon] 2,000 mg PO BID 06/14/18 06/14/18 History duloxetine [Cymbalta] 60 mg PO BID 06/14/18 06/14/18 History insulin glargine [Basaglar KwikPen 20 unit SUBCUT DAILY 06/14/18 06/14/18 History U-100 Insulin] lisinopril 10 mg PO DAILY 06/14/18 06/14/18 History metformin 1,000 mg PO BID 06/14/18 06/14/18 History Exam Vital signs: Vital Signs 06/14/18 10:11 06/14/18 10:12 06/14/18 10:19 Temperature 97.6 F Pulse Rate 76 80 89 Respiratory Rate 22 18 18 Blood Pressure 207/109 H 204/91 H 191/103 H Pulse Oximetry 98 98 99 06/14/18 10:32 06/14/18 10:45 06/14/18 11:54 Temperature Pulse Rate 88 67 70 Respiratory Rate 18 18 Blood Pressure 195/88 H 164/86 H Pulse Oximetry 97 99 97 06/14/18 13:44 06/14/18 13:54 Temperature Pulse Rate 79 80 Respiratory Rate 18 20 Blood Pressure 160/86 H 160/80 H Pulse Oximetry 96 Intake & Output 06/13/18 06/14/18 06/14/18 18:59 06:59 18:59 Weight 76 kg Narrative: GENERAL: NAD, A&Ox3 HEAD: Normocephalic. NECK: Supple, trachea midline. No lymphadenopathy. EYES: No scleral icterus. No injection or drainage. CARDIOVASCULAR: Regular rate and rhythm without murmurs, gallops, or rubs. RESPIRATORY: Breath sounds equal bilaterally. No accessory muscle use. GASTROINTESTINAL: Abdomen soft, non-tender, nondistended. MUSCULOSKELETAL: No cyanosis, or edema. SKIN: Warm and dry. NEURO: No focal neurological deficits. Results - Labs CBC & Chem 7: 06/14/18 10:10 06/14/18 10:10 Labs: Short CBC 06/14/18 Range/Units 10:10 WBC 17.4 H (4.0-11.0) th/mm3 Hgb 14.6 (11.6-15.3) gm/dL Hct 43.2 (35.0-46.0) % Plt Count 507 H (150-450) th/mm3 BMP 06/14/18 10:10 Sodium 140 Potassium 3.7 Chloride 104 Carbon Dioxide 20.8 L BUN 12 Creatinine 0.72 Calcium 8.7 Cardiac Enzymes 06/14/18 Range/Units 10:10 Total Creatine Kinase 39 (26-192) U/L Troponin I Less than 0.02 L (0.02-0.05) ng/mL Liver Function 06/14/18 Range/Units 10:10 Total Bilirubin 0.5 (0.2-1.0) mg/dL AST 20 (15-37) U/L ALT 26 (10-53) U/L Alkaline Phosphatase 66 (45-117) U/L Albumin 4.1 (3.4-5.0) g/dL Urine 06/14/18 Range/Units 12:50 Urine Color Yellow (Yellw/Straw) Urine Clarity Slightly cloudy (Clear) Urine pH 7.5 (5.0-8.5) Ur Specific [place] 1.020 (1.002-1.035) Urine Protein 30 H (Neg-Trace) mg/dL Urine Glucose (UA) Negative (Negative) mg/dL - Imaging Impressions Chest X-Ray 06/14/18 10:19 CONCLUSION: Negative for an acute process. Head CT 06/14/18 10:27 CONCLUSION: 1. Negative CT Head non contrast. . Caprini VTE Risk Assessment Caprini VTE Risk Assessment: Moderate/High Risk (score >= 2) Caprini Risk Assessment Model: Point Value = 1 Point Value = 2 Point Value = 3 Point Value = 5 Age 41-60 Minor surgery BMI > 25 kg/m2 Swollen legs Varicose veins or History of unexplained or recurrent spontaneous Oral contraceptives or hormone replacement Sepsis (< 1 month) Serious lung disease, including pneumonia (< 1 month) Abnormal pulmonary function Acute myocardial infarction Congestive heart failure (< 1 month) History of inflammatory bowel disease Medical patient at bed rest Age 61-74 Arthroscopic surgery Major open surgery (> 45 min) Laparoscopic surgery (> 45 min) Malignancy Confined to bed (> 72 hours) Immobilizing plaster cast Central venous access Age >= 75 History of VTE Family history of VTE Factor V Leiden Prothrombin [id number] Lupus anticoagulant Anticardiolipin antibodies Elevated serum homocysteine Heparin-induced thrombocytopenia Other congenital or acquired thrombophilia Stroke (< 1 month) Elective arthroplasty Hip, pelvis, or leg fracture Acute spinal cord injury (< 1 month) Prophylaxis Regimen: Total Risk Factor Score Risk Level Prophylaxis Regimen 0-1 Low Early ambulation 2 Moderate Order ONE of the following: *Sequential Compression Device (SCD) *Heparin 5000 units SQ BID 3-4 Higher Order ONE of the following medications: *Heparin 5000 units SQ TID *Enoxaparin/Lovenox 40 mg SQ daily (WT < 150 kg, CrCl > 30 mL/min) *Enoxaparin/Lovenox 30 mg SQ daily (WT < 150 kg, CrCl > 10-29 mL/min) *Enoxaparin/Lovenox 30 mg SQ BID (WT < 150 kg, CrCl > 30 mL/min) AND/OR *Sequential Compression Device (SCD) 5 or more Highest Order ONE of the following medications: *Heparin 5000 units SQ TID (Preferred with Epidurals) *Enoxaparin/Lovenox 40 mg SQ daily (WT < 150 kg, CrCl > 30 mL/min) *Enoxaparin/Lovenox 30 mg SQ daily (WT < 150 kg, CrCl > 10-29 mL/min) *Enoxaparin/Lovenox 30 mg SQ BID (WT < 150 kg, CrCl > 30 mL/min) AND *Sequential Compression Device (SCD) Assessment and Plan - Assessment (1) Atypical chest pain Code(s): R07.89 - Other chest pain Status: Acute (2) Nausea and vomiting Code(s): R11.2 - Nausea with vomiting, unspecified Status: Acute (3) Diaphoresis Code(s): R61 - Generalized hyperhidrosis Status: Acute (4) Tobacco use Code(s): Z72.0 - Tobacco use Status: Acute - Plan 58 year old female with a history of CAD and ME in the past, admitted with chest pain. Chest pain Old ME Possible unstable angina Evaluate for ACS Follow cardiac enzymes Aspirin daily When necessary oxygen When necessary morphine for pain. When necessary nitroglycerin Follow on telemetry Cardiology consulted Hypertensive urgency Clonidine and enalapril IV provided on a as needed basis. Continue baseline treatments Nausea/vomiting This could be related to gastroenteritis This could be related to myocardial infarction Continue cardiac workup as above Protonix, Zofran, Reglan Nicotine dependence Patient counseled to quit NicoDerm contraindicated at this point Diabetes mellitus type 2 Follow blood sugars Insulin sliding scale Diabetic diet Leukocytosis May be reactive Monitor for now Urinalysis pending Hyperlipidemia Continue present treatment Follow as an outpatient DVT prophylaxis Heparin (2) Nausea and vomiting Qualifiers: Vomiting type: cyclical vomiting Vomiting Intractability: unspecified Qualified Code(s): G43.A0 - Cyclical vomiting, not intractable
[2018-06-14] MEDS: Morphine Inj 4 MG/ML Vial IV.PUSH PRN ×2 (16:05→21:15)
--- NOTE | 2018-06-14 16:17 | ECG ---
Date Performed: 06/14/2018 Time Performed: 10:06:32 PTAGE: 58 years EKG: Sinus rhythm NORMAL ECG PREVIOUS TRACING : 12/10/2016 05.29 Since the previous tracing, no significant change noted DOCTOR: Luana Avina Interpretating Date/Time 06/14/2018 16:15:21
[2018-06-14 16:22] LABS: Creatine Kinase 47 U/L (26-192)
[2018-06-14] MEDS: Insulin NovoLOG Aspart Correctional Sugar Inj SQ SCH ×2 (16:56→21:08)
[2018-06-14 21:48] VITALS: RESP 16
[2018-06-14 22:26] LABS: Troponin I 0.03 ng/mL (0.02-0.05)
[2018-06-14] MEDS ORDERED: Acetaminophen 325 MG Tablet PO PRN (23:34)
[2018-06-15] MEDS: Sod Chloride 0.9% Inj 1,000 ML IV.CONT SCH (01:25)
[2018-06-15 07:12] LABS: Baso # (Auto) 0.1 th/mm3 (0.0-0.2); Baso % (Auto) 0.6 % (0.0-2.0); Eos # (Auto) 0.1 th/mm3 (0.0-0.4); Eos % (Auto) 0.5 % (0.0-4.0); Hematocrit 38.2 % (35.0-46.0); Hemoglobin 13.1 gm/dL (11.6-15.3); Lymph # (Auto) 4.1 th/mm3 (1.0-4.8); Lymph % (Auto) 24.7 % (9.0-44.0); Mean Corpuscular HGB Conc 34.3 % (32.0-36.0); Mean Corpuscular Hemoglobin 30.6 pg (27.0-34.0); Mean Corpuscular Volume 89.2 fL (80.0-100.0); Mean Platelet Volume 6.9 fL (7.0-11.0); Mono # (Auto) 0.9 th/mm3 (0.0-0.9); Mono % (Auto) 5.2 % (0.0-8.0); Neut # (Auto) 11.6 th/mm3 (1.8-7.7); Platelet Count 420 th/mm3 (150-450); Red Blood Count 4.28 mil/mm3 (4.00-5.30); Red Cell Distribution Width 12.6 % (11.6-17.2); White Blood Count 16.8 th/mm3 (4.0-11.0)
[2018-06-15 07:21] LABS: Chloride 107 meq/L (98-107); Potassium 3.1 meq/L (3.5-5.1); Sodium 141 meq/L (136-145)
[2018-06-15 07:46] LABS: Alanine Aminotransferase 21 U/L (10-53); Albumin 3.4 g/dL (3.4-5.0); Alkaline Phosphatase 56 U/L (45-117); Anion Gap 10 meq/L (5-15); Aspartate Aminotransferase 14 U/L (15-37); Blood Urea Nitrogen 13 mg/dL (7-18); Calcium 7.7 mg/dL (8.5-10.1); Carbon Dioxide 23.9 meq/L (21.0-32.0); Glomerular Filtration Rate Greater Than 89 mL/min (>89); Glucose,Random 80 mg/dL (74-106); Total Protein 6.5 g/dL (6.4-8.2); Troponin I 0.03 ng/mL (0.02-0.05)
--- NOTE | 2018-06-15 08:42 | MB ---
cc: Darius Marin MD,Leo Dc MD DATE: 06/15/2018 I have reviewed office and hospital records. HISTORY OF PRESENT ILLNESS: The patient is a pleasant 58-year-old woman I am seeing for possible myocardial ischemia. The patient has had coronary artery disease before. These usually presented with nausea and maybe some pressure. In 2014, she underwent catheterization showing 50% ejection fraction with mild apical hypokinesis and 25% narrowings of the mid LAD and proximal RCA. In 11/2016, she had a non-ST elevation CA and signed out against medical advice. That same month, she had a nuclear stress test by Dr. Helm which was normal. The patient has no true cardiac symptomatology and has minimal stable dyspnea on exertion. Yesterday morning at about an 8 a.m., she developed nausea with dry heaving and sweatiness. There was no definite chest discomfort. The sweatiness lasted all day and she is asymptomatic at this point in time. PAST MEDICAL HISTORY: 1. Hypertension. 2. Hyperlipidemia. 3. Hypothyroidism. 4. Diabetes. 5. Prior depression. 6. Cardiac: As above. 7. Questionable TIA with facial droop. 8. Appendectomy. 9. Cholecystectomy. 10. Hysterectomy. 11. Lysis of adhesions. ALLERGIES: BEE STING AND CODEINE. SOCIAL HISTORY: Her partner approximately a year ago. She smokes 1 to 1-1/2 packs per day and rarely drinks. FAMILY HISTORY: Noncontributory. MEDICATIONS PRIOR TO ADMISSION: Reviewed. REVIEW OF SYSTEMS: Remarkable for the above with occasional joint discomfort, but no other symptomatology. DIAGNOSTIC DATA: EKG showed sinus rhythm and is normal. Troponins negative x 2. Chest x-ray: No acute process noted. White count elevated at 16.8 and 17.4. Potassium 3.7, creatinine 0.72, glucose 101. Lipase normal. Liver transaminases normal. PHYSICAL EXAMINATION: GENERAL: She is alert and oriented x 3. VITAL SIGNS: She is running a low-grade fever of 100.2. Vital signs stable, otherwise. HEENT: There were no xanthelasma and oropharyngeal mucosa normal. CHEST: Clear. JVD normal. HEART: S1, S2. No definite murmurs or gallops. ABDOMEN: Benign. EXTREMITIES: Show no cyanosis, clubbing, or edema. Pulses 1 to 2+ throughout without bruits with 1+ pedals. She is not ambulated. PROBLEMS: 1. Nausea with vomiting - The patient has no acute electrocardiographic changes nor chest pain. She is running a low-grade fever and has an elevated white count. At this point in time, I do not think this is a cardiac issue. 2. Mild coronary artery disease. 3. Hypertension. 4. Diabetes. 5. Hyperlipidemia. 6. Hypothyroidism. 7. Tobacco abuse. RECOMMENDATIONS: 1. At this point in time, I do not think we need to pursue any further cardiac workup given her elevated white count, fever, and only GI symptomatology. 2. Continue aspirin. 3. Continue home cardiac medications otherwise with risk factor modification, which I will leave to the primary service. 4. Tobacco abstinence. At this point, I have nothing more to add and we will be available if needed. She will need to follow up with her primary care provider and Dr. Helm. Certainly, she does need to be back on statin therapy. All questions have been answered. MD BRITTANY Alexander/azael , 07:47 AM , 07:56 AM [email or web address]
[2018-06-15] MEDS: Insulin NovoLOG Aspart Correctional Sugar Inj SQ SCH ×2 (09:11→12:29)
[2018-06-15] MEDS: Lactobacillus Acidophilus/L. Spores Tablet PO SCH ×2 (09:38→13:40)
[2018-06-15] MEDS: Heparin - SQ 10,000 UNITS/ML Vial SQ SCH (09:39)
[2018-06-15 13:08] VITALS: BP 149/86; PULSE 91; TEMP 97.8; O2SAT 95
[2018-06-15] MEDS ORDERED: Aspirin 325 MG Tablet PO SCH (14:00)
--- NOTE | 2018-06-15 14:11 | P.DS ---
Date of admission: 06/14/18 13:09 Primary care physician: Leo Gooden Brief History from admission: Mrs. Gonzalez is a 58-year-old female. She came in secondary to chest pain with diaphoresis and nausea. She reports that this feels similar to myocardial infarction she has had in the past and she has concerns for this. Findings upfront did not suggest acute ND but acute ND needs to be ruled out. She cannot recall any food intake which may have caused her gastroenteritis. No sick contacts. White blood cell count is elevated. Hypertensive urgency is present and could be giving her increased cardiac demand, precipitating angina. When seen during this admit she continues to have chest pain and nausea. Primary complaint when seen is her nausea. No other complaints at this time. This patient does continue to smoke as an outpatient. She does have diabetes mellitus type 2. DS: Diagnosis - Discharge Diagnosis (1) Atypical chest pain Status: Acute (2) Nausea and vomiting Status: Acute (3) Diaphoresis Status: Acute (4) Tobacco use Status: Acute DS: Medications - Discharge Medications Prescriptions: Lactobacillus acidophilus 500 mmu cells PO TID #30 cap metronidazole [Flagyl] 250 mg PO TID #15 tab sulfamethoxazole-trimethoprim [Bactrim DS] 1 tab PO Q12H #10 tab DS: Summary Hospital Course: Mrs. Gonzalez is a 58-year-old female. She was admitted secondary to chest pain in the presence of nausea and vomiting. Cardiac workup is negative. She is been cleared by cardiology. She has had fevers overnight and did have leukocytosis. Urinary tract infection is also present. This is suggestive of side effects from UTI versus a bacterial gastroenteritis. She will be covered with Flagyl and Bactrim in addition to probiotic at time of discharge. Medically stable and cleared for discharge home today. - Time Spent with Patient Total time spent providing and/or coordinating discharge services: Less than 30 minutes - Quality: VTE Deep Vein Thrombosis/Pulmonary Embolism Present on Admission: No Exam Vital signs: Vital Signs 06/14/18 16:40 06/14/18 20:00 06/15/18 00:00 Temperature 98.1 F 100.2 F H 100.1 F H Pulse Rate 88 98 H 97 H Respiratory Rate 20 16 16 Blood Pressure 174/95 H 106/66 108/60 Pulse Oximetry 96 95 95 06/15/18 04:00 06/15/18 08:00 06/15/18 13:07 Temperature 100.2 F H 98.6 F 97.8 F Pulse Rate 82 78 91 H Respiratory Rate 16 16 Blood Pressure 135/67 123/67 149/86 H Pulse Oximetry 96 95 Intake & Output 06/14/18 06/15/18 06/15/18 18:59 06:59 18:59 Intake Total 1350 / 1350 100 / 100 Balance 1350 / 1350 100 / 100 Weight 69.8 kg Intake: IV 1350 / 1350 100 / 100 NS Inj 1,000 ML @ 75 mls/hr IV. 1250 / 1250 CONT .[id number] BENY Rx#: [id number] Rocephin Inj 1,000 MG In NS Inj 100 / 100 100 ML @ 200 mls/hr IV.SIG Q24H BENY Rx#:[id number] Flagyl 500 MG Inj 100 ML @ 100 100 / 100 mls/hr IV.SIG Q8H BENY Rx#: [id number] Other: Weight On Admission 69.8 kg Results Procedures completed during hospitalization: None Labs on day of discharge: Labs from last 24 hours 06/15/18 06/15/18 06/15/18 11:47 07:52 06:15 CBC w Diff WBC RBC Hgb Hct MCV MCH MCHC RDW Plt Count MPV Neut % (Auto) Lymph % (Auto) Mclean % (Auto) Eos % (Auto) Baso % (Auto) Neut # (Auto) Lymph # (Auto) Mclean # (Auto) Eos # (Auto) Baso # (Auto) WBC Differential Differential Comment Sodium 141 Potassium 3.1 L Chloride 107 Carbon Dioxide 23.9 Anion Gap 10 BUN 13 Creatinine 0.59 Estimated GFR Greater than 89 POC Glucose 112 H 89 Random Glucose 80 Calcium 7.7 L D Total Bilirubin 0.4 AST 14 L ALT 21 Alkaline Phosphatase 56 Total Creatine Kinase Troponin I 0.03 Total Protein 6.5 D Albumin 3.4 D 06/15/18 06/14/18 06/14/18 06:15 21:50 21:07 CBC w Diff Auto diff final WBC 16.8 H RBC 4.28 Hgb 13.1 Hct 38.2 MCV 89.2 MCH 30.6 MCHC 34.3 RDW 12.6 Plt Count 420 MPV 6.9 L Neut % (Auto) 69.0 Lymph % (Auto) 24.7 Mclean % (Auto) 5.2 Eos % (Auto) 0.5 Baso % (Auto) 0.6 Neut # (Auto) 11.6 H Lymph # (Auto) 4.1 Mclean # (Auto) 0.9 Eos # (Auto) 0.1 Baso # (Auto) 0.1 WBC Differential . Differential Comment . Sodium Potassium Chloride Carbon Dioxide Anion Gap BUN Creatinine Estimated GFR POC Glucose 140 H Random Glucose Calcium Total Bilirubin AST ALT Alkaline Phosphatase Total Creatine Kinase 41 Troponin I 0.03 Total Protein Albumin 06/14/18 15:45 CBC w Diff WBC RBC Hgb Hct MCV MCH MCHC RDW Plt Count MPV Neut % (Auto) Lymph % (Auto) Mclean % (Auto) Eos % (Auto) Baso % (Auto) Neut # (Auto) Lymph # (Auto) Mclean # (Auto) Eos # (Auto) Baso # (Auto) WBC Differential Differential Comment Sodium Potassium Chloride Carbon Dioxide Anion Gap BUN Creatinine Estimated GFR POC Glucose Random Glucose Calcium Total Bilirubin AST ALT Alkaline Phosphatase Total Creatine Kinase 47 Troponin I Less than 0.02 L Total Protein Albumin Preliminary micro results at discharge 06/14/18 12:50 Urine Culture - Preliminary Clean Catch Urine No growth in 24 hours - Impressions ITS Impressions Chest X-Ray 06/14/18 10:19 CONCLUSION: Negative for an acute process. Head CT 06/14/18 10:27 CONCLUSION: 1. Negative CT Head non contrast. . Discharge Plan - Discharge Disposition Patient Disposition: 01 Discharge Home - Discharge Condition Condition: Stable - Discharge Order Discharge Orders: Discharge Order (Routine); Ordered 06/15/18 Ordered By: Trino Ozuna - Discharge Details Anticipated Discharge Date: 06/15/18 - Physicians Team Primary Care Provider: Leo Gooden Attending Provider: Trino Ozuna Other Providers: Robi Espinoza MD
--- NOTE | 2018-06-15 17:44 | ECG ---
Date Performed: 06/14/2018 Time Performed: 15:42:14 PTAGE: 58 years EKG: Sinus rhythm WITH SINUS ARRHYTHMIA POSSIBLE INFERIOR MYOCARDIAL INFARCTION Since the previous tracing, no signifi cant change noted BORDERLINE ECG PREVIOUS TRACING : 06/14/2018 10.06 DOCTOR: Bhavesh Iglesias Interpretating Date/Time 06/15/2018 17:44:07
--- NOTE | 2018-06-15 17:45 | ECG ---
Date Performed: 06/14/2018 Time Performed: 21:43:29 PTAGE: 58 years EKG: Sinus rhythm Since the previous tracing, no significant change noted NORMAL ECG PREVIOUS TRACING : 06/14/2018 15.42 DOCTOR: Bhavesh Iglesias Interpretating Date/Time 06/15/2018 17:44:18
== END 2018-06-15 15:47 | disposition home or self-care (01) ==
LOC: PHEDA 09:58 → PHEFT 09:58 → PH3 14:14
PROVIDERS: ADMIT Hospitalist; ATTEND Hospitalist
DX: Z90.49 Acquired absence of other specified parts of digestive tract; R07.89 Other chest pain; E78.00 Pure hypercholesterolemia, unspecified; E78.5 Hyperlipidemia, unspecified; E11.9 Type 2 diabetes mellitus without complications; F17.210 Nicotine dependence, cigarettes, uncomplicated; Z90.710 Acquired absence of both cervix and uterus; Z79.82 Long term (current) use of aspirin; Z79.84 Long term (current) use of oral hypoglycemic drugs; E03.9 Hypothyroidism, unspecified; K21.9 Gastro-esophageal reflux disease without esophagitis; N39.0 Urinary tract infection, site not specified; I25.2 Old myocardial infarction; I10 Essential (primary) hypertension